=== PATIENT | female | born 1935 | race Caucasian/White ===

== ENCOUNTER 2018-01-17 19:13 | Emergency (ER) | payer OTHER, MEDICARE ==
[~2018-01-17] VITALS: Ht 157.5 cm; Wt 72.1 kg
[~2018-01-17 19:13] MED LIST: AGGRENOX 25 MG1 EACH PO; ARICEPT10 M1 PO; AUGMENTIN 875-1 EACH PO; CELEBREX200 M1 PO; CIPRO500 M1 PO; COLACE100 M1 PO; ELIQUIS2.5 M1 PO; FERROUS SULFAT325 M3 PO; FLAGYL500 MG PO; LANTUS SOL100 UNIT/1 SC; LANTUS100 UNIT/1 SC; LEXAPRO10 M1 PO; MELATONIN3 M4 PO; MELOXICAM7.5 M1 PO; NOVA MAX BLOOD1 EACH SC; PERCOCET 5-3251 EACH PO; POTASSIUM CHLO10 ME4 PO; TOPROL XL25 M1 PO; TYLENOL WITH C1 EACH PO; VITAMIN B-121000 MC3 PO
--- NOTE | 2018-01-17 20:02 | ED MVC/FALL/TRAUMA COMPLAINT ---
History of Present Illness General Chief Complaint: Upper Extremity Problem Stated Complaint: S/P FALL, R ARM INJURY Source: patient Exam Limitations: no limitations Vital Signs & Intake/Output Vital Signs & Intake/Output Vital Signs Date Time Temp Pulse Resp B/P B/P Pulse O2 O2 Flow FiO2 Mean Ox Delivery Rate 01/17 1932 97.4 54 18 149/74 96 Room Air Allergies Coded Allergies: NO KNOWN ALLERGIES (04/30/16) Reconcile Medications Apixaban (Eliquis) 2.5 MG TABLET 1 TAB PO BID ANTICOAGULATION Blood-Glucose Meter (Nova Max Blood Glucose Meter) 1 EACH EACH 2 U SC 1/2H BEFOR/BREAKFAST DM (Reported) Celecoxib (Celebrex) 200 MG CAPSULE 1 CAP PO DAILY INFLAMMATION Cyanocobalamin (Vitamin B-12) 1,000 MCG TABLET 1 TAB PO DAILY SUPPLEMENT ( Reported) Docusate Sodium (Colace) 100 MG CAPSULE 1 CAP PO BID CONSITPATION DISCONTINUE USE IF YOU DEVELOP LOOSE STOOL OR DIARRHEA Donepezil HCl (Aricept) 10 MG TABLET 1 TAB PO QPM DEMENTIA (Reported) Escitalopram Oxalate (Lexapro) 10 MG TABLET 1 TAB PO DAILY ANXIETY (Reported) Ferrous Sulfate 325 MG (65 MG IRON) TABLET 1 TAB PO DAILY SUPPLEMENT ( Reported) Insulin Glargine,Hum.rec.anlog (Lantus Solostar) 100 UNIT/ML (3 ML) INSULN.PEN 6 UNITS SC 1200 DM (Reported) Insulin-Lantus (Lantus) 100 UNIT/ML VIAL 8 UNITS SC 1/2H BEFOR/BREAKFAST DM ( Reported) Melatonin 3 MG TABLET 1 TAB PO QPM SUPPLEMENT (Reported) Metoprolol Succ XL (Toprol XL) 25 MG TAB 1 TAB PO DAILY HTN (Reported) Oxycodone HCl/Acetaminophen (Percocet 5-325 MG Tablet) 5 MG-325 MG TABLET 1-2 TAB PO Q4-6H PRN PAIN Potassium Chloride 10 MEQ TABLET.ER 1 TAB PO QOD SUPPLEMENT (Reported) Triage Note: PT FROM HOME C/O FALL AROUND 1600. PTS SON STATES THAT PT WAS AT HER OTHER SONS HOUSE AND TRIPPED OVER A THRESHOLD AND FELL FACE FLAT FOWARD. PT HAD A WITNESSED FALL, +HEADSTRIKE, -LOC. PT STATES ON 25MG 1X DAY AGGRENOX DUE TO TIA 6 YEARS PRIOR. PT PROVIDED WITH A SLING AND ICE PACK, PT DECLINES MOTRIN OR TYLENOL. PT A&0X3 BESIDES BASELINE DEMENTIA. PT HAS SMALL ABRASION OF BRIDGE OF NOSE, PT ACTING AGE APPROPRIATELY. PT HAS BILATERAL KNEE SWELLING AND BRUISING FROM FALL. PT DENIES N/V, CP, SOB, LETHARGY. VSS. AFEBRILE. Triage Nurses Notes Reviewed? yes Onset: Abrupt Duration: hour(s): ( 4pm), constant, continues in ED Timing: recent history Severity: moderate, severe No Modifying Factors: none HPI: 82-year-old female comes into the emergency room for further evaluation of falling. Patient reports that she tripped over her son's house when she was walking between a doorway on the lip. She fell onto her right side and hit her shoulder. She also hit her head. She has some right shoulder pain and bilateral knee pain. Denies any headache or vomiting. She also complains of this pulsation in the right side of her neck is been there for 2 years. She comes in for further evaluation. She denies any chest pain. She has chronic shortness of breath secondary to lung disease. (Otto Damian) Past History Travel History Traveled to [place] past 21 day No Medical History Any Pertinent Medical History? 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 No (Otto Damian) Review of Systems Review of Systems Constitutional: Reports: no symptoms. Eyes: Reports: no symptoms. Ears, Nose, Throat, Mouth: Reports: no symptoms. Respiratory: Reports: no symptoms. Cardiovascular: Reports: see HPI. Gastrointestinal/Abdominal: Reports: no symptoms. Genitourinary: Reports: no symptoms. Musculoskeletal: Reports: see HPI. Skin: Reports: no symptoms. Neurological/Psychological: Reports: no symptoms. All Other Systems: Reviewed and Negative (Otto Damian) Physical Exam Physical Exam General Appearance: alert, awake, mild distress Head: small scarpe bridge of nose Eyes: Bilateral: normal appearance, EOMI. Ears, Nose, Throat, Mouth: hearing grossly normal, moist mucous membrane Neck: pulsatile mass to right side of neck, Respiratory: normal breath sounds, no respiratory distress Cardiovascular: regular rate/rhythm Gastrointestinal: soft Extremities: full range of motion of hips and knees bilaterally, tenderness soft tissue to knees bilaterally Neurologic/Psych: awake, alert, oriented x 3 Skin: intact, normal color Core Measures ACS in differential dx? No CVA/TIA Diagnosis No Sepsis Present: No Sepsis Focused Exam Completed? No (Lit ANDREWS,Otto) Progress Differential Diagnosis: abd injury, C/T/L spine injury, ext injury, ICH, pelvis injury, pnemothorax, spinal cord injury Plan of Care: Orders Procedure Date/time Status TROPONIN LEVEL 01/17 1959 Complete COMPREHENSIVE METABOLIC PANEL 01/17 1959 Complete CBC WITHOUT DIFFERENTIAL 01/17 1959 Complete EKG 01/17 1936 Active Laboratory Tests 01/17/18 2010: Anion Gap 12, Estimated GFR 33 L, BUN/Creatinine Ratio 26.0 H, Glucose 145 H, Calcium 8.8, Total Bilirubin 0.3, AST 20, ALT 24, Alkaline Phosphatase 84, Troponin I 0.02, Total Protein 6.6, Albumin 3.5, Globulin 3.1, Albumin/Globulin Ratio 1.1, CBC w Diff NO MAN DIFF REQ, RBC 3.70 L, MCV 89.3, MCH 29.0, MCHC 32.4 L, RDW 15.1 H, MPV 7.9, Gran % 81.5 H, Lymphocytes % 10.0 L, Monocytes % 6.2, Eosinophils % 1.8, Basophils % 0.5, Absolute Granulocytes 13.0 H, Absolute Lymphocytes 1.6, Absolute Monocytes 1.0 H, Absolute Eosinophils 0.3, Absolute Basophils 0.1 Diagnostic Imaging: Viewed by Me: Radiology Read, CT Scan. Discussed w/RAD: Radiology Read, CT Scan. Radiology Impression: PATIENT: FEMI AREVALO PRESENT AGE: 82 PATIENT ACCOUNT NO: [id number] : 33 LOCATION: [facility] ORDERING PHYSICIAN: Otto ANDREWS SERVICE DATE: 01/17/18-1958 EXAM TYPE : CAT - CT NECK W IV CONTRAST EXAMINATION: CT NECK WITH CONTRAST CLINICAL INFORMATION: Pulsatile mass of right neck. COMPARISON: None TECHNIQUE: Multidetector CT imaging examination of the neck was performed with intravenous administration of 94 mL of Optiray 320 nonionic contrast material. DLP: Please refer to the separately dictated head CT report FINDINGS: Parotid glands are unremarkable. There is fatty replacement of the left submandibular gland; this could be sequela of remote sialadenitis. The right submandibular gland is unremarkable. Multinodular thyroid gland with scattered noncalcified and calcified nodules of < 1.5 cm size. The nasopharynx, oral cavity, tongue base, and tonsillar pillars are unremarkable. No contour abnormality or pathologic enhancement within the oral cavity or pharyngeal mucosal space. The parapharyngeal fat planes are preserved. The hypopharynx, epiglottis, and preepiglottic space are normal. Laryngeal structures normal. No fluid collections in the deep soft tissues. There are normal sized lymph nodes of the suprahyoid and infrahyoid neck without evidence of lymphadenopathy by size criteria. The visualized carotid and vertebral arteries opacify normally. Atherosclerotic calcification of carotid bulb/bifurcation, bilaterally, without high-grade stenosis. Skull base is intact and the mastoid air cells and middle ear cavities are clear. The visualized paranasal sinuses are well aerated. The orbital santacruz, globes and retrobulbar soft tissues are unremarkable. No acute intracranial findings. No evidence of saccular aneurysm or flow limiting major vessel intracranial stenosis. 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 At C3-C4 and C4-C5, the facet osteoarthritis is associated with mild, approximately 0.2 cm anterior vertebral subluxation at these levels. At C5-C6, there is severe degenerative disc space narrowing with minimal retrolisthesis of C5 on C6. No acute cervical spine fracture or prevertebral soft tissue swelling. No acute osseous injury in the visualized degenerated upper thoracic spine. No acute findings in visualized lung apices. Chronic interstitial fibrotic lung disease. Atherosclerotic calcification of the aortic arch without aneurysm or dissection. There is a normal branch pattern at the top of the aortic arch and the great vessels are widely patent. IMPRESSION: 1. No evidence of soft tissue mass or lymphadenopathy within the right neck. 2. 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 Degenerative disc disease is most advanced at C5-C6. No acute fracture, traumatic subluxation or prevertebral soft tissue swelling. 3. Multinodular thyroid gland. DICTATED BY: Carlos Mckee MD DATE/ TIME DICTATED:01/17/182142 ANCHOR TACKER:CAMILA DATE/TIME TRANSCRIBED: 01/17/182142 CONFIDENTIAL, DO NOT COPY WITHOUT APPROPRIATE AUTHORIZATION. < Electronically signed in Other Vendor System> SIGNED BY: Carlos Mckee MD 01/17/182156, PATIENT: FEMI AREVALO PRESENT AGE: 82 PATIENT ACCOUNT NO: [id number] : 33 LOCATION: [facility] ORDERING PHYSICIAN: Otto ANDREWS SERVICE DATE: 01/17/18 EXAM TYPE: CAT - CT HEAD WO IV CONTRAST EXAMINATION: CT HEAD WITHOUT CONTRAST CLINICAL INFORMATION: History of fall with head pain. COMPARISON: CT images of the head from 09/29/2013 TECHNIQUE: Contiguous axial imaging was performed from the skull base to vertex without intravenous administration of contrast. DLP: 1180 mGy-cm (for CT exams of the head and neck) FINDINGS: Chronic, patchy hypoattenuation of supratentorial white matter is consistent with moderate microangiopathy. Byrd- white matter differentiation is maintained. No evidence of an acute major vascular territory infarction, hemorrhage, extra-axial fluid collection, mass or midline shift. Mild atrophy of cerebral hemispheres with commensurate prominence of ventricles and sulci. Atherosclerotic calcification of vertebral and cavernous carotid arteries. There is hyperostosis frontalis interna. The calvarium is intact and the visualized paranasal sinuses, mastoid air cells and middle ear cavities are well aerated. Temporomandibular joints are unremarkable. The lenses have been extracted from each globe. IMPRESSION: No acute intracranial pathology compared to 09/29/2013. Chronic small vessel ischemic changes of the supratentorial white matter and mild cerebral atrophy. DICTATED BY: Carlos Mckee MD DATE/TIME DICTATED:01/17/182138 ANCHOR TACKER: CAMILA DATE/TIME TRANSCRIBED:01/17/182138 CONFIDENTIAL, DO NOT COPY WITHOUT APPROPRIATE AUTHORIZATION. <Electronically signed in Other Vendor System> SIGNED BY: Carlos Mckee MD 01/17/182146, PATIENT: FEMI AREVALO PRESENT AGE: 82 PATIENT ACCOUNT NO: [id number] : 33 LOCATION: [facility] ORDERING PHYSICIAN: Otto ANDREWS SERVICE DATE: 01/17/18 EXAM TYPE: RAD - XRY-KNEE COMPLETE LEFT; XRY-KNEE COMPLETE RIGHT EXAMINATION: XR KNEE, RIGHT XR KNEE, LEFT CLINICAL INFORMATION: Pain after fall COMPARISON: 09/12/2017 TECHNIQUE: Right knee, 4 views Left knee, 4 views FINDINGS: Right knee: Alignment is normal. The components of the total knee arthroplasty are intact. No acute periprosthetic fracture or joint effusion. Atherosclerotic calcification of femoral, popliteal and leg vessels. Left knee: Alignment is normal. The components of the total knee arthroplasty are intact. No acute periprosthetic fracture, subluxation or joint effusion. There is heterotopic ossification along the distal quadriceps, along the medial collateral ligament and projecting over the region of Hoffa's fat pad. Atherosclerotic calcification and of the visualized femoral, popliteal and leg vessels. Soft tissues appear mildly swollen in the infrapatellar region. IMPRESSION: No acute osseous injury in either knee. Alignment is normal in both knees. Total knee arthroplasties are intact. DICTATED BY: Carlos Mckee MD DATE/TIME DICTATED:01/17/182043 ANCHOR TACKER:CAMILA DATE/TIME TRANSCRIBED:01/17/182043 CONFIDENTIAL, DO NOT COPY WITHOUT APPROPRIATE AUTHORIZATION. <Electronically signed in Other Vendor System> SIGNED BY: Carlos Mckee MD 01/17/182050, PATIENT: FEMI AREVALO PRESENT AGE: 82 PATIENT ACCOUNT NO: [id number] : 33 LOCATION: [facility] ORDERING PHYSICIAN: Otto ANDREWS SERVICE DATE: 01/17/18 EXAM TYPE: RAD - XRY-SHOULDER COMPLETE-RIGHT EXAMINATION: XR SHOULDER, RIGHT CLINICAL INFORMATION: Pain after fall. COMPARISON: None TECHNIQUE: AP external rotation, Grashey, scapular Y, and axillary views of the right shoulder. FINDINGS: Alignment is normal at the acromioclavicular and glenohumeral joints. At the acromioclavicular joint, there is subchondral sclerosis, subchondral cystic change and osteophytosis. Small osteophytes are present at the inferior aspect of the degenerated glenohumeral joint. Humeral head is well-positioned over the intact glenoid. No acute fracture, subluxation or focal soft tissue swelling. Multilevel facet osteoarthritis of the partially visualized cervical spine. IMPRESSION: 1. No acute fracture or malalignment at the right shoulder. 2. Gxigpsrl-bc-[id number] osteoarthritis of the acromioclavicular joint and mild osteoarthritis of the glenohumeral joint. DICTATED BY: Carlos Mckee MD DATE/ TIME DICTATED:01/17/182041 ANCHOR TACKER:CAMILA DATE/TIME TRANSCRIBED: 01/17/182041 CONFIDENTIAL, DO NOT COPY WITHOUT APPROPRIATE AUTHORIZATION. < Electronically signed in Other Vendor System> SIGNED BY: Carlos Mckee MD 01/17/182047 Initial ED EKG: normal sinus rhythm, rate (55) Comments: 01/17/18 Overall workup was negative. Despite the more pronounced carotid artery there was no evidence of any aneurysm. Patient was seen by Dr. Jacobs and the case was discussed with Dr. Jacobs and he agreed with the plan of care as well. Patient met the cutoff for IV contrast and due to the concern for possible aneurysm we felt that the CT scan was necessary at the time. Patient was told to increase water intake to hydrate and flush out her kidneys. Take Tylenol as needed for pain. Follow-up with PCP. Safe for discharge. Patient has support systems at home. (Otto Damian) Comments: 01/17/2018 10:19:30 PM patient is without specific complaint. Additional physical examination of the right side of the neck reveals no obvious soft tissue mass or swelling but the patient's right carotid artery pulse is more prominent than the left. CAT scan of the head and neck was unremarkable. (Arlene SU,Nabil Tijerina) Departure Departure Disposition: HOME OR SELF CARE Condition: Stable Clinical Impression Primary Impression: Right shoulder strain Secondary Impressions: Knee contusion Referrals: Mamadou Villagran MD (PCP/Family) Additional Instructions: Take Tylenol for pain. Follow up with PCP as needed. Return if any concerns. Please go over all results of today's visit with your primary care doctor. Contact your primary care doctor to let them know you were here in the emergency room. There may be nonspecific findings which may not be related to your visit today here in the emergency room but may require further evaluation and chronic monitoring by your primary care doctor. If you had a laceration today the chance of foreign body always remains. You should follow-up with your primary care doctor for recheck in 3-5 days for a wound check. If you had an x-ray done there is a chance that a fracture could have been missed on initial read and you should follow-up with your primary care doctor for repeat x-rays if symptoms persist. If your blood pressure was elevated here in the emergency room please have rechecked by hyour primary care doctor within the next 48. If you were prescribed a narcotic here in the emergency room or any type of controlled substances you're not allowed to drive while taking this medication or operate any type of heavy machinery. Narcotics can make you feel lightheaded dizziness nausea and can cause constipation. You may need to curing pickling packer a stool softener. Thank you for choosing [facility] emergency room. Please return to the emergency room immediately if you have any other concerns worsening of symptoms. Departure Forms: Customer Survey General Discharge Information (Otto Damian) PA/SECOND CUTTER Co-Sign Statement Statement: ED Attending supervision documentation- [x] I saw and evaluated the patient. I have also reviewed all the pertinent lab results and diagnostic results. I agree with the findings and the plan of care as documented in the PA's/SECOND CUTTER's documentation. Patient presents for evaluation of injury sustained status post fall. Physical examination reveals a small abrasion to the nasal bridge and tenderness of the right upper extremity proximally. [] I have reviewed the ED Record and agree with the PA's/SECOND CUTTER's documentation. [] Additions or exceptions (if any) to the PAs/SECOND CUTTER's note and plan are summarized below: [] (Arlene SU,Nabil Tijerina)
[2018-01-17 20:18] LABS: ABSOLUTE BASOPHIL COUNT 0.1 /CUMM (0.0-0.2); ABSOLUTE EOSINOPHIL COUNT 0.3 /CUMM (0.0-0.7); ABSOLUTE LYMPH COUNT 1.6 /CUMM (1.2-3.4); BASOPHIL % 0.5 % (0.0-2.0); EOSINOPHIL % 1.8 % (0-5); GRANULOCYTE % 81.5 % (42.2-75.2); MEAN CORPUSCULAR HGB CONC 32.4 G/DL (33.0-37.0); MEAN CORPUSCULAR VOLUME 89.3 FL (81.0-99.0); MEAN PLATELET VOLUME 7.9 FL (7.4-10.4); PLATELET COUNT 298 /CUMM (130-400); RBC DISTRIBUTION WIDTH 15.1 % (11.5-14.5); WHITE BLOOD CELL COUNT 15.9 /CUMM (4.8-10.8)
--- NOTE | 2018-01-17 20:48 | RADIOLOGY REPORT ---
EXAMINATION: XR SHOULDER, RIGHT CLINICAL INFORMATION: Pain after fall. COMPARISON: None TECHNIQUE: AP external rotation, Grashey, scapular Y, and axillary views of the right shoulder. FINDINGS: Alignment is normal at the acromioclavicular and glenohumeral joints. At the acromioclavicular joint, there is subchondral sclerosis, subchondral cystic change and osteophytosis. Small osteophytes are present at the inferior aspect of the degenerated glenohumeral joint. Humeral head is well-positioned over the intact glenoid. No acute fracture, subluxation or focal soft tissue swelling. Multilevel facet osteoarthritis of the partially visualized cervical spine. IMPRESSION: 1. No acute fracture or malalignment at the right shoulder. 2. Kvggylas-vh-ryqklz osteoarthritis of the acromioclavicular joint and mild osteoarthritis of the glenohumeral joint.
--- NOTE | 2018-01-17 20:51 | RADIOLOGY REPORT ---
EXAMINATION: XR KNEE, RIGHT XR KNEE, LEFT CLINICAL INFORMATION: Pain after fall COMPARISON: 09/12/2017 TECHNIQUE: Right knee, 4 views Left knee, 4 views FINDINGS: Right knee: Alignment is normal. The components of the total knee arthroplasty are intact. No acute periprosthetic fracture or joint effusion. Atherosclerotic calcification of femoral, popliteal and leg vessels. Left knee: Alignment is normal. The components of the total knee arthroplasty are intact. No acute periprosthetic fracture, subluxation or joint effusion. There is heterotopic ossification along the distal quadriceps, along the medial collateral ligament and projecting over the region of Hoffa's fat pad. Atherosclerotic calcification and of the visualized femoral, popliteal and leg vessels. Soft tissues appear mildly swollen in the infrapatellar region. IMPRESSION: No acute osseous injury in either knee. Alignment is normal in both knees. Total knee arthroplasties are intact.
--- NOTE | 2018-01-17 21:47 | CT SCAN REPORT ---
EXAMINATION: CT HEAD WITHOUT CONTRAST CLINICAL INFORMATION: History of fall with head pain. COMPARISON: CT images of the head from 09/29/2013 TECHNIQUE: Contiguous axial imaging was performed from the skull base to vertex without intravenous administration of contrast. DLP: 1180 mGy-cm (for CT exams of the head and neck) FINDINGS: Chronic, patchy hypoattenuation of supratentorial white matter is consistent with moderate microangiopathy. Byrd-white matter differentiation is maintained. No evidence of an acute major vascular territory infarction, hemorrhage, extra-axial fluid collection, mass or midline shift. Mild atrophy of cerebral hemispheres with commensurate prominence of ventricles and sulci. Atherosclerotic calcification of vertebral and cavernous carotid arteries. There is hyperostosis frontalis interna. The calvarium is intact and the visualized paranasal sinuses, mastoid air cells and middle ear cavities are well aerated. Temporomandibular joints are unremarkable. The lenses have been extracted from each globe. IMPRESSION: No acute intracranial pathology compared to 09/29/2013. Chronic small vessel ischemic changes of the supratentorial white matter and mild cerebral atrophy.
--- NOTE | 2018-01-17 21:57 | CT SCAN REPORT ---
EXAMINATION: CT NECK WITH CONTRAST CLINICAL INFORMATION: Pulsatile mass of right neck. COMPARISON: None TECHNIQUE: Multidetector CT imaging examination of the neck was performed with intravenous administration of 94 mL of Optiray 320 nonionic contrast material. DLP: Please refer to the separately dictated head CT report FINDINGS: Parotid glands are unremarkable. There is fatty replacement of the left submandibular gland; this could be sequela of remote sialadenitis. The right submandibular gland is unremarkable. Multinodular thyroid gland with scattered noncalcified and calcified nodules of < 1.5 cm size. The nasopharynx, oral cavity, tongue base, and tonsillar pillars are unremarkable. No contour abnormality or pathologic enhancement within the oral cavity or pharyngeal mucosal space. The parapharyngeal fat planes are preserved. The hypopharynx, epiglottis, and preepiglottic space are normal. Laryngeal structures normal. No fluid collections in the deep soft tissues. There are normal sized lymph nodes of the suprahyoid and infrahyoid neck without evidence of lymphadenopathy by size criteria. The visualized carotid and vertebral arteries opacify normally. Atherosclerotic calcification of carotid bulb/bifurcation, bilaterally, without high-grade stenosis. Skull base is intact and the mastoid air cells and middle ear cavities are clear. The visualized paranasal sinuses are well aerated. The orbital santacruz, globes and retrobulbar soft tissues are unremarkable. No acute intracranial findings. No evidence of saccular aneurysm or flow limiting major vessel intracranial stenosis. 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 At C3-C4 and C4-C5, the facet osteoarthritis is associated with mild, approximately 0.2 cm anterior vertebral subluxation at these levels. At C5-C6, there is severe degenerative disc space narrowing with minimal retrolisthesis of C5 on C6. No acute cervical spine fracture or prevertebral soft tissue swelling. No acute osseous injury in the visualized degenerated upper thoracic spine. No acute findings in visualized lung apices. Chronic interstitial fibrotic lung disease. Atherosclerotic calcification of the aortic arch without aneurysm or dissection. There is a normal branch pattern at the top of the aortic arch and the great vessels are widely patent. IMPRESSION: 1. No evidence of soft tissue mass or lymphadenopathy within the right neck. 2. 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 Degenerative disc disease is most advanced at C5-C6. No acute fracture, traumatic subluxation or prevertebral soft tissue swelling. 3. Multinodular thyroid gland.
[2018-01-17 22:27] VITALS: BP 144/76
== END 2018-01-17 22:40 ==
LOC: ERH 19:13
PROVIDERS: Physician Assistant Medical
DX: S46.911A Strain of unspecified muscle, fascia and tendon at shoulder and upper arm level, right arm, initial encounter (principal); S80.01XA Contusion of right knee, initial encounter; S80.02XA Contusion of left knee, initial encounter; S09.90XA Unspecified injury of head, initial encounter; R22.1 Localized swelling, mass and lump, neck; W18.09XA Striking against other object with subsequent fall, initial encounter; Y93.01 Activity, walking, marching and hiking
CPT/HCPCS: 73030-RT; 73562-LT; 73562-RT; 93005; 93010

== ENCOUNTER 2018-03-01 18:52 | Inpatient (IN) | payer OTHER, MEDICARE ==
[~2018-03-01] VITALS: Ht 157.5 cm; Wt 78.0 kg
--- NOTE | 2018-03-01 19:04 | ED MVC/FALL/TRAUMA COMPLAINT ---
History of Present Illness General Chief Complaint: Fall Stated Complaint: BIBA FOR FALL IN KITCHEN Source: patient, family, EMS Exam Limitations: no limitations Vital Signs & Intake/Output Vital Signs & Intake/Output Vital Signs Date Time Temp Pulse Resp B/P B/P Pulse O2 O2 Flow FiO2 Mean Ox Delivery Rate 03/01 2305 43 14 178/76 10 Ventilator 28% 03/01 2235 42 14 168/73 99 Ventilator 28% 03/011 28 03/015 44 16 135/61 99 Ventilator 30% 03/01 2135 42 16 124/62 100 Ventilator 30% 03/01 2105 48 16 145/63 99 Ventilator 30% 03/01 2052 98.1 50 16 171/73 100 Ventilator 30% 03/01 2015 30 03/01 2008 64 16 198/82 100 Ventilator 30% 03/01 2001 64 18 188/77 100 10L 03/01 1955 66 8 207/87 100 10L 03/01 1857 96.9 47 17 165/73 98 Room Air Allergies Coded Allergies: NO KNOWN ALLERGIES (04/30/16) Reconcile Medications Cholecalciferol (Vitamin D3) (Vitamin D) 5,000 UNIT TABLET 1 TAB PO DAILY SUPPLEMENT (Reported) Cyanocobalamin (Vitamin B-12) 1,000 MCG TABLET 1 TAB PO DAILY SUPPLEMENT ( Reported) Dipyridamole W/ Aspirin (Aggrenox 25 MG-200 MG Capsule) 25 MG-200 MG CPMP.12HR 1 CAP PO BID BLOOD THINNER (Reported) Docusate Sodium (Colace) 100 MG CAPSULE 1 CAP PO DAILY STOOL SOFTENER ( Reported) Donepezil HCl (Aricept) 10 MG TABLET 1 TAB PO QPM DEMENTIA (Reported) Doxycycline Hyclate 50 MG CAPSULE 1 CAP PO DAILY ABX (Reported) Escitalopram Oxalate (Lexapro) 10 MG TABLET 1 TAB PO DAILY ANXIETY (Reported) Ferrous Sulfate 325 MG (65 MG IRON) TABLET 1 TAB PO DAILY SUPPLEMENT ( Reported) Insulin Aspart (Novolog) 100 UNIT/ML VIAL 4 UNITS SC QAM DM (Reported) Insulin Aspart (Novolog) 100 UNIT/ML VIAL 8 UNITS SC DAILY DM (Reported) Insulin Detemir (Levemir) 100 UNIT/ML VIAL 6 UNITS SC QAM DM (Reported) Insulin Detemir (Levemir) 100 UNIT/ML VIAL 4 UNITS SC QPM DM (Reported) Losartan Potassium 50 MG TABLET 1 TAB PO DAILY BP (Reported) Meloxicam 7.5 MG TABLET 1 TAB PO DAILY PAIN/INFLAMMATION (Reported) Metoprolol Succ XL (Toprol XL) 25 MG TAB 1 TAB PO DAILY HTN (Reported) Rosuvastatin Calcium (Crestor) 20 MG TABLET 1 TAB PO DAILY CHOLESTEROL ( Reported) Triage Note: PT TO ED BY AMBULANCE S/P UNWITNESSED FALL AT HOME. PT HAS [employer]AL[employer] BUTTON. DENIES HITTING HEAD. C/O BILAT HIP PAIN. LEFT LEG SHORTENING NOTED. Triage Nurses Notes Reviewed? yes Onset: Abrupt Duration: hour(s): (1), constant, continues in ED, getting worse Timing: single episode today Severity: moderate, severe Severity Numbers: 10 Injuries/Fall Location: lower extremity (LEFT HIP ) Method of Injury: fall Loss of Consciousness: unsure No Modifying Factors: none LMP (ages 10-50): post menopausal, unknown : No Patient currently breastfeeds: No HPI: 83-year-old female past medical history of coronary artery disease, non-insulin- dependent diabetes, hypertension, bradycardia presents for evaluation after a fall. Patient reports that she slipped in the kitchen and fell landing on her left hip. She denies a head strike. She reports severe pain in her left hip and lower extremity as well as her lower back. No chest pain shortness breath or dizziness or lightheadedness before the fall. She denies loss of consciousness. No neck pain back pain and knee pain and ankle pain and right hip pain no arm pain. Patient is taking AGGRENOX. No nausea or vomiting no changes in vision. (Boston Jacobsen) Past History Travel History Traveled to [place] past 21 day No Medical History Any Pertinent Medical History? 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 No (Boston Jacobsen) Review of Systems Review of Systems Constitutional: Reports: no symptoms. Eyes: Reports: no symptoms. Ears, Nose, Throat, Mouth: Reports: no symptoms. Respiratory: Reports: no symptoms. Cardiovascular: Reports: no symptoms. Gastrointestinal/Abdominal: Reports: no symptoms. Genitourinary: Reports: no symptoms. Musculoskeletal: Reports: see HPI, back pain, joint pain, joint swelling, muscle pain, muscle stiffness. Skin: Reports: no symptoms. Neurological/Psychological: Reports: no symptoms. All Other Systems: Reviewed and Negative (Boston Jacobsen) Physical Exam Physical Exam General Appearance: well developed/nourished, alert, awake, anxious, mild distress Head: atraumatic, normal appearance, NO SCALP HEMATOMAS LACERATIONS OR ABRASIONS Eyes: Bilateral: normal appearance, PERRL, EOMI, normal inspection. Ears, Nose, Throat, Mouth: hearing grossly normal, moist mucous membrane, Tympanic normal Neck: normal inspection, supple, full range of motion, no midline tenderness Respiratory: normal breath sounds, chest non-tender, no respiratory distress, lungs clear Cardiovascular: regular rate/rhythm, normal peripheral pulses Peripheral Pulses: 2+ radial (R), 2+ radial (L) Gastrointestinal: soft, non-tender Back: normal inspection, normal range of motion, no vertebral tenderness Extremities: THE LEFT LOWER EXTREMITY IS INTERNALLY ROTATED AND SHORTENED. pATIENT HAS SEVERE PAIN TO PALPATION OF THE LEFT HIP. rANGE OF MOTION OF LEFT HIP IS REDUCED DUE TO PAIN. nO TENDERNESS OF THE BILATERAL ANKLES OR KNEES. nO TENDERNESS IN THE RIGHT HIP. fULL RANGE OF MOTION OF BILATERAL UPPER EXTREMITIES IS INTACT WITHOUT PAIN Neurologic/Psych: no motor/sensory deficits, awake, alert, oriented x 3 Skin: intact, normal color, warm/dry Core Measures ACS in differential dx? No CVA/TIA Diagnosis No Date Last Known Well: 03/01/18 Time Last Known Well: 1914 Symptom Start Date: 03/01/18 Symptom Start Time: 193 Reason tPA not ordered Medical Contraindication (HIP FRACTURE, GCS 3) Sepsis Present: No Sepsis Focused Exam Completed? No (Boston Jacobsen) Progress Differential Diagnosis: aoritic dissection, abd injury, C/T/L spine injury, ext injury, ICH, pelvis injury, spinal cord injury, SEIZURE, STROKE, PE, ACS Plan of Care: Orders Procedure Date/time Status Wound Care/Dressing 03/01 2343 Complete Weight 03/01 2343 Active VTE Mechanical Prophylaxis 04/01 2343 Active Vital Signs 03/01 2343 Active Turn and Reposition 03/01 234 Active Drains/Tubes 03/01 234 Complete Teach/Educate 03/01 2343 Active Skin Integrity Protocol 03/01 234 Active Skin/Pressure Ulcer Assess (Sk 03/01 2343 Active Precautions 03/01 2343 Active Pain Treatment and Response 03/01 2343 Active Nutritional Intake, Monitor 03/01 2343 Active Isolation 03/01 234 Active CIWA 03/01 2343 Complete Patient Care Conference 03/01 234 Active Activity/Ambulation 03/01 234 Active Pathway - chart 03/01 232 Active House Staff 03/01 232 Active Code Status 03/01 232 Active XRY-PORTABLE CHEST XRAY 03/01 2311 Active VENTILATOR PARAMETERS 03/01 2217 Complete Admit to inpatient 03/01 2206 Active Patient Data 03/01 2155 Active NGT 03/01 2143 Active ARTERIAL BLOOD GAS (GEN) 03/01 2135 Complete Add-on Test (ER Only) 03/01 2125 Active EKG 03/01 1951 Active Intake & Output 03/01 193 Active TSH REFLEX 03/01 191 Active PROLACTIN 03/01 1917 Active URINALYSIS 03/01 1900 Complete TROPONIN LEVEL 03/01 1900 Active PARTIAL THROMBOPLASTIN TIME 03/01 190 Complete PROTHROMBIN TIME 03/01 1900 Complete COMPREHENSIVE METABOLIC PANEL 03/01 1900 Active CBC WITHOUT DIFFERENTIAL 03/01 1900 Complete EKG 03/01 1900 Active TYPE & SCREEN (NOT X-MATCH) 03/01 1900 Complete VENTILATOR PARAMETERS 03/01 UNK Complete Lab Add-on Test 03/01 UNK Active VTE Mechanical Prophylaxis 03/01 UNK Active Current Medications Sig/Faraz Start time Last Medication Dose Stop Time Status Admin Lorazepam 2 MG ONE ONE 03/01 2230 UNVr (Ativan) 03/01 2231 Laboratory Tests 03/01/182199: pH 7.40, pCO2 29 L, pO2 121 H, HCO3 17.2 L, ABG O2 Sat (Measured) 98.0, Carboxyhemoglobin 0.2 L, O2 Concentration % 30, Respiration Rate 16, O2 Delivery Method VENT, Vent Mode AC, Expiratory Pressure 5, Tidal Volume 500, Pressure Support 0, Phlebotomy Draw Site RIGHT RADIAL 03/01/182138: Urinalysis MOD H, Urine Color YEL, Urine Clarity CLEAR, Urine pH 6.0, Ur Specific [place] 1.025, Urine Protein >=300 H, Urine Ketones NEG, Urine Nitrite NEG, Urine Bilirubin NEG, Urine Urobilinogen 0.2, Ur Leukocyte Esterase NEG, Ur Microscopic SEDIMENT EXAMINED, Urine RBC 1-3, Urine WBC 1-3 H, Ur Epithelial Cells FEW, Urine Bacteria FEW H, Hyaline Casts 1-3 H, Granular Casts RARE H, Urine Mucus FEW, Urine Hemoglobin SMALL H, Urine Glucose 100 H 03/01/181916: Anion Gap 12, Estimated GFR 33 L, BUN/Creatinine Ratio 22.7, Glucose 165 H, Calcium 9.0, Total Bilirubin 0.4, AST 22, ALT 19, Alkaline Phosphatase 92, Troponin I 0.10, Total Protein 6.6, Albumin 3.4 L, Globulin 3.2, Albumin/ Globulin Ratio 1.1, TSH &T3 &Free T4 Intrp Pending, Prolactin 51.9 H, PT 11.2, INR 1.03, APTT 28, CBC w Diff NO MAN DIFF REQ, RBC 3.55 L, MCV 90.3, MCH 29.0, MCHC 32.1 L, RDW 15.6 H, MPV 7.9, Gran % 86.9 H, Lymphocytes % 6.7 L, Monocytes % 4.8, Eosinophils % 1.3, Basophils % 0.3, Absolute Granulocytes 11.2 H, Absolute Lymphocytes 0.9 L, Absolute Monocytes 0.6, Absolute Eosinophils 0.2 , Absolute Basophils 0 Patient seen and evaluated. She is here after mechanical fall. Suspect a left hip fracture. Patient is taking AGGRENOX. We'll check a CT scan of the head neck chest x-ray and hip x-rays. Patient medicated with IV Tylenol and IV morphine. 745PM While patient was getting her head CT she suddenly became unresponsive. technical specialist reported she did have some seizure-like activity. On reexam after this episode patient is unresponsive with snoring respirations. She does not appear to have a gag reflex to protect her airway. She has a left-sided facial droop and gaze looking to the left. GCS IS 3. Attempted Narcan without any improvement. Patient was intubated by Dr. Nichole placed on a ventilator. Patient was taken back to CT scan for a CT of the head neck chest abdomen and pelvis. No traumatic injuries were seen of the head no hematomas. A CTA of the head and neck was obtained to evaluate for stroke. Neurology was called. Waiting further recommendations. 927: Patient remains intubated on ventilator. She was responding to some commands squeezing the right hand and making eye contact. She'll be given 2 mg of IV Ativan for sedation. Spoke with Dr. Ann from neurology. He recommends covering the patient with Keppra permissive hypertension 210/110, supportive care, MRI of the brain tomorrow. No TPA due to large hip fracture, GCS OF 3, and unclear etiology. Remaining CT scans are back and show a left hip fracture. No other acute trauma. Ortho was paged. PT ADMITTED TO THE ICU BY DR OTT. Diagnostic Imaging: Viewed by Me: CT Scan. Discussed w/RAD: CT Scan. Radiology Impression: PATIENT: FEMI AREVALO PRESENT AGE: 83 PATIENT ACCOUNT NO: [id number] : 33 LOCATION: [facility] ORDERING PHYSICIAN: Papo Nichole MD SERVICE DATE: 03/01/18 EXAM TYPE: CAT - CT HEAD ANGIOGRAM; CT NECK ANGIOGRAM EXAMINATION: CT ANGIOGRAM NECK AND BRAIN CLINICAL INFORMATION: 83-year-old woman who is unresponsive. COMPARISON: 03/01/[address] TECHNIQUE: Test bolus sequences followed by intravenous administration 94 mL of Optiray 320. Helical imaging was performed in the axial plane from the thoracic inlet to the skull vertex. Delayed postcontrast imaging of the head was also performed. The data was processed at the certified surgical technologist's workstation for generation of MIP sequences. Angled MIPs and volume rendered reformatted images were also generated at an offline 3D workstation. Stenoses are assessed in accordance with NASCET criteria unless otherwise indicated. DLP: 1116 mGy-cm FINDINGS: Brain: No intracranial mass, hemorrhage, extra-axial collection, or midline shift is apparent. Chronic ischemic changes and volume loss are again noted. No pathologic intra-axial enhancement or regional oligemia is visualized. The paranasal sinuses remain well aerated. Cervical soft tissues and lung apices: The lung apices are better assessed on the patient's dedicated chest CT. An endotracheal tube is visible. Chest CTA: There is a classic 3 vessel configuration of the aortic arch. Proximal arch vessels are non-stenotic. The left vertebral artery is dominant. No significant ostial stenosis is visualized on either side. Neck CTA: Both vertebral arteries are widely patent throughout their extracranial cervical course. Both common and internal carotid arteries are normal in course and caliber. There is mild calcified atherosclerotic plaquing seen at both carotid bifurcations. Brain CTA: There is normal opacification of major intracranial arteries. No focal flow-limiting stenosis, discrete proximal large artery occlusion, or saccular intradural aneurysm is identified. Timing of the contrast allows assessment of the major dural venous sinuses, which all opacify normally. IMPRESSION: No significant cervicocerebral vascular stenosis or acute intracranial large artery occlusion. DICTATED BY: Robyn Ovalles MD DATE/TIME DICTATED:03/01/182103 MEDICAL CARE ADMINISTRATOR:CAMLIA DATE/TIME TRANSCRIBED:2103 CONFIDENTIAL, DO NOT COPY WITHOUT APPROPRIATE AUTHORIZATION. < Electronically signed in Other Vendor System> SIGNED BY: Robyn Ovalles MD 12/18, PATIENT: FEMI AREVALO PRESENT AGE: 83 PATIENT ACCOUNT NO: [id number] : 33 LOCATION: [facility] ORDERING PHYSICIAN: [place] ANDREWS SERVICE DATE: 03/01/18 EXAM TYPE: CAT - CT CERV SPINE WO IV CONTRAST; CT HEAD WO IV CONTRAST EXAMINATION: CT HEAD WITHOUT CONTRAST CT CERVICAL SPINE WITHOUT CONTRAST CLINICAL INFORMATION: 83-year-old woman with fall on oral anticoagulation. COMPARISON: 01/17/[address] TECHNIQUE: Imaging was performed from the skull base to vertex without intravenous administration of contrast. In addition, helical noncontrast CT imaging was acquired through the cervical spine and source images were reviewed along with axial reconstructions and sagittal and coronal MPRs. DLP: 1985 mGy-cm FINDINGS: HEAD: No intracranial mass, hemorrhage, or midline shift is visualized. The ventricles and sulci are diffusely prominent due to chronic volume loss. Fairly extensive chronic microvascular ischemic changes are seen throughout the supratentorial white matter. Chronic lacunar infarcts are seen in both basal ganglia. No extra- axial collections are identified. The paranasal sinuses and mastoid air cells are well aerated. CERVICAL SPINE: There is no evidence of acute cervical spine fracture. Vertebral bodies remain normal in height. There is slight degenerative anterolisthesis of C3 on C4 and of C4 on C5, as well as slight retrolisthesis of C5 on C6. Degenerative endplate remodeling with loss of normal disc space is most conspicuous at C5-C6. There is bulky multilevel facet arthrosis. No pre- or paravertebral soft tissue abnormality is identified. The lung apices are better assessed on the patient's dedicated chest CT. IMPRESSION: 1. No acute intracranial pathology. 2. No CT evidence of acute cervical spine fracture or traumatic subluxation. Findings were discussed with DARRYL Zelaya, at 9:00 pm. DICTATED BY: Robyn Ovalles MD DATE/TIME DICTATED:03/01/182055 MEDICAL CARE ADMINISTRATOR: CAMILA DATE/TIME TRANSCRIBED:03/01/182055 CONFIDENTIAL, DO NOT COPY WITHOUT APPROPRIATE AUTHORIZATION. <Electronically signed in Other Vendor System> SIGNED BY: Robyn Ovalles MD 03/01/182105 Initial ED EKG: sinus felisha rate 49, lvh (Boston Jacobsen) Departure Departure Disposition: STILL A PATIENT Condition: Stable Referrals: Mamadou Villagran MD (PCP/Family) Departure Forms: Customer Survey General Discharge Information Admission Note Spoke With: Santiago Telles MD Documentation of Exam: Documentation of any treatments & extenuating circumstances including Concerns Regarding Discharge (functional status, medication knowledge or non-compliance, living conditions, etc.) that warrant an admission rather than observation: [ Critical care, serial labs, orthopedics, neurology, MRI, IV Keppra, intubation, respiratory therapy] (Boston Jacobsen) Departure Clinical Impression Primary Impression: Unresponsive Secondary Impressions: Fracture of left hip Qualifiers: Encounter type: initial encounter Fracture type: closed Qualified Code: S72.002A - Fracture of unspecified part of neck of left femur, initial encounter for closed fracture Respiratory failure Admission Note Documentation of Exam: Documentation of any treatments & extenuating circumstances including Concerns Regarding Discharge (functional status, medication knowledge or non-compliance, living conditions, etc.) that warrant an admission rather than observation: PA/BRANCH LENDING OFFICER Co-Sign Statement Statement: ED Attending supervision documentation- [x] I saw and evaluated the patient. I have also reviewed all the pertinent lab results and diagnostic results. I agree with the findings and the plan of care as documented in the PA's/BRANCH LENDING OFFICER's documentation. 03/01/18, 20:13... pt became unresponsive in the CT scanner.... gcs 3 without gag reflex.... discussed with son who is POA... pt is full code... pt intubated successfully via glidescope without complication. ET tube confirmed with capnography and auscultation. pt signed out to me.... I discussed with hospitalist. [] I have reviewed the ED Record and agree with the PA's/BRANCH LENDING OFFICER's documentation. [] Additions or exceptions (if any) to the PAs/BRANCH LENDING OFFICER's note and plan are summarized below: [] (Dionisio SU,Papo Murdock) Procedures Intubation Time of Intubation: 2003 Intubation Method: orotracheal Tube Size (cm): 7.5 Medications: etomidate 20mg iv Breath Sounds After Intubation: equal Intubation Complications: no complications (Dionisio SU,Papo Murdock) Critical Care Note Critical Care Note Critical Care Time: 75-104 min (Papo Nichole MD)
[2018-03-01] MEDS ORDERED: LOSARTAN POTASS50 M1 PO (19:10)
[2018-03-01] MEDS ORDERED: MELOXICAM7.5 M1 PO (19:10)
[2018-03-01] MEDS ORDERED: DOXYCYCLINE HYC50 M1 PO (19:10)
[2018-03-01] MEDS ORDERED: AGGRENOX 25 MG1 EACH PO (19:11)
[2018-03-01] MEDS ORDERED: CRESTOR20 M2 PO (19:11)
[2018-03-01] MEDS ORDERED: COLACE100 M1 PO (19:11)
[2018-03-01] MEDS ORDERED: VITAMIN D5000 UNIT PO (19:12)
[2018-03-01] MEDS ORDERED: NOVOLOG100 UNIT/2 SC ×2 (19:13)
[2018-03-01] MEDS ORDERED: LEVEMIR100 UNIT/1 SC ×2 (19:17)
[2018-03-01 19:23] LABS: ABSOLUTE BASOPHIL COUNT 0 /CUMM (0.0-0.2); ABSOLUTE EOSINOPHIL COUNT 0.2 /CUMM (0.0-0.7); ABSOLUTE GRANULOCYTE CT 11.2 /CUMM (1.4-6.5); ABSOLUTE LYMPH COUNT 0.9 /CUMM (1.2-3.4); ABSOLUTE MONOCYTE COUNT 0.6 /CUMM (0.10-0.60); BASOPHIL % 0.3 % (0.0-2.0); EOSINOPHIL % 1.3 % (0-5); GRANULOCYTE % 86.9 % (42.2-75.2); HEMATOCRIT 32.1 % (37-47); MEAN CORPUSCULAR HGB CONC 32.1 G/DL (33.0-37.0); MEAN CORPUSCULAR VOLUME 90.3 FL (81.0-99.0); MEAN PLATELET VOLUME 7.9 FL (7.4-10.4); PLATELET COUNT 336 /CUMM (130-400); RBC DISTRIBUTION WIDTH 15.6 % (11.5-14.5); RED BLOOD CELL CT 3.55 /CUMM (4.20-5.40); WHITE BLOOD CELL COUNT 12.9 /CUMM (4.8-10.8)
[2018-03-01 19:36] LABS: PT 11.2 SEC (9.4-12.5); PTT 28 SEC (25-37)
--- NOTE | 2018-03-01 21:06 | CT SCAN REPORT ---
EXAMINATION: CT HEAD WITHOUT CONTRAST CT CERVICAL SPINE WITHOUT CONTRAST CLINICAL INFORMATION: 83-year-old woman with fall on oral anticoagulation. COMPARISON: 01/17/[address] TECHNIQUE: Imaging was performed from the skull base to vertex without intravenous administration of contrast. In addition, helical noncontrast CT imaging was acquired through the cervical spine and source images were reviewed along with axial reconstructions and sagittal and coronal MPRs. DLP: 1986 mGy-cm FINDINGS: HEAD: No intracranial mass, hemorrhage, or midline shift is visualized. The ventricles and sulci are diffusely prominent due to chronic volume loss. Fairly extensive chronic microvascular ischemic changes are seen throughout the supratentorial white matter. Chronic lacunar infarcts are seen in both basal ganglia. No extra-axial collections are identified. The paranasal sinuses and mastoid air cells are well aerated. CERVICAL SPINE: There is no evidence of acute cervical spine fracture. Vertebral bodies remain normal in height. There is slight degenerative anterolisthesis of C3 on C4 and of C4 on C5, as well as slight retrolisthesis of C5 on C6. Degenerative endplate remodeling with loss of normal disc space is most conspicuous at C5-C6. There is bulky multilevel facet arthrosis. No pre- or paravertebral soft tissue abnormality is identified. The lung apices are better assessed on the patient's dedicated chest CT. IMPRESSION: 1. No acute intracranial pathology. 2. No CT evidence of acute cervical spine fracture or traumatic subluxation. Findings were discussed with DARRYL Zelaya, at 9:00 pm.
--- NOTE | 2018-03-01 21:17 | CT SCAN REPORT ---
EXAMINATION: CT ANGIOGRAM NECK AND BRAIN CLINICAL INFORMATION: 83-year-old woman who is unresponsive. COMPARISON: 03/01/[address] TECHNIQUE: Test bolus sequences followed by intravenous administration 94 mL of Optiray 320. Helical imaging was performed in the axial plane from the thoracic inlet to the skull vertex. Delayed postcontrast imaging of the head was also performed. The data was processed at the electrical engineering technologist's workstation for generation of MIP sequences. Angled MIPs and volume rendered reformatted images were also generated at an offline 3D workstation. Stenoses are assessed in accordance with NASCET criteria unless otherwise indicated. DLP: 1116 mGy-cm FINDINGS: Brain: No intracranial mass, hemorrhage, extra-axial collection, or midline shift is apparent. Chronic ischemic changes and volume loss are again noted. No pathologic intra-axial enhancement or regional oligemia is visualized. The paranasal sinuses remain well aerated. Cervical soft tissues and lung apices: The lung apices are better assessed on the patient's dedicated chest CT. An endotracheal tube is visible. Chest CTA: There is a classic 3 vessel configuration of the aortic arch. Proximal arch vessels are non-stenotic. The left vertebral artery is dominant. No significant ostial stenosis is visualized on either side. Neck CTA: Both vertebral arteries are widely patent throughout their extracranial cervical course. Both common and internal carotid arteries are normal in course and caliber. There is mild calcified atherosclerotic plaquing seen at both carotid bifurcations. Brain CTA: There is normal opacification of major intracranial arteries. No focal flow-limiting stenosis, discrete proximal large artery occlusion, or saccular intradural aneurysm is identified. Timing of the contrast allows assessment of the major dural venous sinuses, which all opacify normally. IMPRESSION: No significant cervicocerebral vascular stenosis or acute intracranial large artery occlusion.
--- NOTE | 2018-03-01 21:32 | CT SCAN REPORT ---
EXAMINATION: CT ABDOMEN CHEST, ABDOMEN, AND PELVIS WITHOUT CONTRAST CLINICAL INFORMATION: 83-year-old woman post fall, now unresponsive. COMPARISON: 04/24/[address], 08/11/[address] TECHNIQUE: Multidetector volumetric imaging was performed from the thoracic inlet through the pubic symphysis. Sagittal and coronal reformatted images were obtained on the technologist's workstation. DLP: 889 mGy-cm FINDINGS: CHEST: Chronic changes related to pulmonary fibrosis are again noted with lower lobe predominant peripheral reticular opacity, honeycombing, and bronchiectasis. Previously described tiny pulmonary nodules and calcified granulomata are less well seen on today's exam due to motion. Extensive calcified atherosclerotic plaquing is again noted of the thoracic aorta. There is stable ectasia and prominence of the ascending aorta. The pulmonary arteries are also prominent and there is multichamber cardiac enlargement. No significantly enlarged mediastinal, hilar, or axillary lymph nodes are appreciated. There are no pleural or pericardial effusions. An endotracheal tube is visible in the trachea. ABDOMEN: The liver, spleen, pancreas, adrenals, and mildly atrophic kidneys remain normal in appearance. There is cholelithiasis without evidence of acute inflammation. PELVIS: There is extensive colonic diverticulosis without evidence of acute inflammation. Small bowel loops are nondilated. There is diastases of the lower ventral abdominal wall with a small probable hernia containing some bowel wall and the anterior portion of the bladder. Pelvic viscera are not visible and may be surgically absent. MSK: There is a comminuted intertrochanteric fracture of the left femur with varus angulation and superior displacement of the distal femoral fragment. There is associated soft tissue hematoma around the fracture extending into the upper thigh. Degenerative changes are seen throughout the thoracolumbar spine without convincing evidence of an acute vertebral compression fracture. IMPRESSION: 1. No CT evidence of acute traumatic injury in the chest, abdomen, or pelvis on this noncontrast study. 2. Comminuted and angulated intertrochanteric fracture of the femur.
--- NOTE | 2018-03-01 23:38 | History & Physical ---
Lion Antonio MD 03/01/18 5240: General Information and HPI MD Statement: I have seen and personally examined FEMI AREVALO and documented this H&P. The patient is a 83 year old F who presented with a patient stated chief complaint of fall. Source of Information: patient, family, old records Exam Limitations: clinical condition History of Present Illness: 83 year old female with past medical history significant for coronary artery disease on aggrenox, diabetes on insulin, hypertension, diverticulitis (2012), ILD, CKD stage IIIB, bradycardia and dementia presents after a fall, apparently from a mechanical fall landing on her left hip with a left intertrochanteric comminuted displaced femur fracture. She denied any head strike and denied loss of consciousness. She reports severe pain in her left hip and lower extremity as well as her lower back and was given morphine and ofirmev. She was taken at [address] imaging of the head when she became unresponsive, with reported seizure like activity by the thermal technician, obstructed respiratory noises, left sided facial droop and left sided gaze, GCS 3 and absent gag reflex, with no response to naloxone so the patient was subsequently intubated for airway protection without incident. According to the son he was called by [employer], that had detected his mother's fall around 1800. Prior to her mental status change, he said she appeared uncomfortable, was only saying "help me" and had some unusual shaking activity especially her left upper extremity. The patient was taken back to CT scan for a CT of the head neck chest abdomen and pelvis. Neurology was called and a CTA of the head and neck was obtained to evaluate for stroke. TPA was not given. She was given 2mg of ativan for sedation. The patient was unable to provide a review of systems but the patient lives in an efficiency unit, has mild dementia but is able to administer her own insulin. She uses a walker but sometimes forgets and has had three mechanical falls in the past year. She has a history of an aortic valve replacement and bilateral knee replacements mostly recently 08/2017. Her donepezil dose was recently increased to 10mg BID and she had some recent bradycardia into the 50s for which they were awaiting an upcoming appointment with Dr. Krishna Lane to possibly decrease the metoprolol dose. Allergies/Medications Allergies: Coded Allergies: NO KNOWN ALLERGIES (04/30/16) Home Med list Cholecalciferol (Vitamin D3) (Vitamin D) 5,000 UNIT TABLET 1 TAB PO DAILY SUPPLEMENT (Reported) Cyanocobalamin (Vitamin B-12) 1,000 MCG TABLET 1 TAB PO DAILY SUPPLEMENT ( Reported) Dipyridamole W/ Aspirin (Aggrenox 25 MG-200 MG Capsule) 25 MG-200 MG CPMP.12HR 1 CAP PO BID BLOOD THINNER (Reported) Docusate Sodium (Colace) 100 MG CAPSULE 1 CAP PO DAILY STOOL SOFTENER ( Reported) Donepezil HCl (Aricept) 10 MG TABLET 1 TAB PO QPM DEMENTIA (Reported) Doxycycline Hyclate 50 MG CAPSULE 1 CAP PO DAILY ABX (Reported) Escitalopram Oxalate (Lexapro) 10 MG TABLET 1 TAB PO DAILY ANXIETY (Reported) Ferrous Sulfate 325 MG (65 MG IRON) TABLET 1 TAB PO DAILY SUPPLEMENT ( Reported) Insulin Aspart (Novolog) 100 UNIT/ML VIAL 4 UNITS SC QAM DM (Reported) Insulin Aspart (Novolog) 100 UNIT/ML VIAL 8 UNITS SC DAILY DM (Reported) Insulin Detemir (Levemir) 100 UNIT/ML VIAL 6 UNITS SC QAM DM (Reported) Insulin Detemir (Levemir) 100 UNIT/ML VIAL 4 UNITS SC QPM DM (Reported) Losartan Potassium 50 MG TABLET 1 TAB PO DAILY BP (Reported) Meloxicam 7.5 MG TABLET 1 TAB PO DAILY PAIN/INFLAMMATION (Reported) Metoprolol Succ XL (Toprol XL) 25 MG TAB 1 TAB PO DAILY HTN (Reported) Rosuvastatin Calcium (Crestor) 20 MG TABLET 1 TAB PO DAILY CHOLESTEROL ( Reported) Compliance With Home Meds: GOOD Past History Travel History Traveled to [place] past 21 day No Medical History Neurological: NONE EENT: NONE Cardiovascular: BRADYCARDIA, HTN Respiratory: LUNG SCARRING Gastrointestinal: DIVERTIC Hepatic: NONE Renal: NONE Musculoskeletal: NONE Psychiatric: NONE Endocrine: TYPE 2 DIABETES Blood Disorders: NONE Cancer(s): NONE MERCHANDISING CONSULTANT/Reproductive: NONE History of MRSA: No History of VRE: No History of CDIFF: No Surgical History Surgical History: L TKR VALVE REPLACEMENT Past Family/Social History Psychosocial History Services at Home: None Smoking Status: Never Smoked (second hand exposure) Functional Ability ADLs Independent: dressing, eating, toileting, bathing. Ambulation: walker IADLs Needs Assist: finances, medication admin. Review of Systems Review of Systems Constitutional: Reports: no symptoms. Comments unobtainable Exam & Diagnostic Data Last 24 Hrs of Vital Signs/I&O Vital Signs Date Time Temp Pulse Resp B/P B/P Pulse O2 O2 Flow FiO2 Mean Ox Delivery Rate 03/015 43 14 178/76 10 Ventilator 28% 03/01 2235 42 14 168/73 99 Ventilator 28% 03/011 28 03/01 2205 44 16 135/61 99 Ventilator 30% 03/01 2135 42 16 124/62 100 Ventilator 30% 03/01 2105 48 16 145/63 99 Ventilator 30% 03/01 2052 98.1 50 16 171/73 100 Ventilator 30% 03/01 2015 30 03/01 2008 64 16 198/82 100 Ventilator 30% 03/01 2001 64 18 188/77 100 10L 03/01 195 66 8 207/87 100 10L 03/01 1857 96.9 47 17 165/73 98 Room Air Physical Exam General Appearance intubated but responsive and following commands, intubated on ventilator, OGT Skin No Rashes, No Breakdown, No Significant Lesion Skin Temp/Moisture Exam: Warm/Dry Neck +JVD Cardiovascular bradycardic, prominent s2, early systolic murmur loudest at the base 3/6 Lungs Clear to Auscultation, anteriorly Abdomen Normal Bowel Sounds, Soft, No Tenderness, No Masses Neurological gaze to the right side, moving all extremities spontaneously, following commands Extremities No Clubbing, No Cyanosis, No Edema, Normal Pulses, LLE shortened and externally rotated Last 24 Hrs of Labs/Gucci: Laboratory Tests 03/01/182199: pH 7.40, pCO2 29 L, pO2 121 H, HCO3 17.2 L, ABG O2 Sat (Measured) 98.0, Carboxyhemoglobin 0.2 L, O2 Concentration % 30, Respiration Rate 16, O2 Delivery Method VENT, Vent Mode AC, Expiratory Pressure 5, Tidal Volume 500, Pressure Support 0, Phlebotomy Draw Site RIGHT RADIAL 03/01/182138: Urinalysis MOD H, Urine Color YEL, Urine Clarity CLEAR, Urine pH 6.0, Ur Specific [place] 1.025, Urine Protein >=300 H, Urine Ketones NEG, Urine Nitrite NEG, Urine Bilirubin NEG, Urine Urobilinogen 0.2, Ur Leukocyte Esterase NEG, Ur Microscopic SEDIMENT EXAMINED, Urine RBC 1-3, Urine WBC 1-3 H, Ur Epithelial Cells FEW, Urine Bacteria FEW H, Hyaline Casts 1-3 H, Granular Casts RARE H, Urine Mucus FEW, Urine Hemoglobin SMALL H, Urine Glucose 100 H 03/01/181916: Anion Gap 12, Estimated GFR 33 L, BUN/Creatinine Ratio 22.7, Glucose 165 H, Calcium 9.0, Total Bilirubin 0.4, AST 22, ALT 19, Alkaline Phosphatase 92, Troponin I 0.10, Total Protein 6.6, Albumin 3.4 L, Globulin 3.2, Albumin/ Globulin Ratio 1.1, Prolactin 51.9 H, PT 11.2, INR 1.03, APTT 28, CBC w Diff NO MAN DIFF REQ, RBC 3.55 L, MCV 90.3, MCH 29.0, MCHC 32.1 L, RDW 15.6 H, MPV 7.9, Gran % 86.9 H, Lymphocytes % 6.7 L, Monocytes % 4.8, Eosinophils % 1.3, Basophils % 0.3, Absolute Granulocytes 11.2 H, Absolute Lymphocytes 0.9 L, Absolute Monocytes 0.6, Absolute Eosinophils 0.2, Absolute Basophils 0 Diagnostic Data EKG Results sinus rhythm HR 66 LVH no ischemic changes bradycardic HR 40s on the monitor Other Results Brain: No intracranial mass, hemorrhage, extra-axial collection, or midline shift is apparent. Chronic ischemic changes and volume loss are again noted. No pathologic intra-axial enhancement or regional oligemia is visualized. The paranasal sinuses remain well aerated. Cervical soft tissues and lung apices: The lung apices are better assessed on the patient's dedicated chest CT. An endotracheal tube is visible. Chest CTA: There is a classic 3 vessel configuration of the aortic arch. Proximal arch vessels are non-stenotic. The left vertebral artery is dominant. No significant ostial stenosis is visualized on either side. Neck CTA: Both vertebral arteries are widely patent throughout their extracranial cervical course. Both common and internal carotid arteries are normal in course and caliber. There is mild calcified atherosclerotic plaquing seen at both carotid bifurcations. Brain CTA: There is normal opacification of major intracranial arteries. No focal flow-limiting stenosis, discrete proximal large artery occlusion, or saccular intradural aneurysm is identified. Timing of the contrast allows assessment of the major dural venous sinuses, which all opacify normally. IMPRESSION: No significant cervicocerebral vascular stenosis or acute intracranial large artery occlusion. CHEST: Chronic changes related to pulmonary fibrosis are again noted with lower lobe predominant peripheral reticular opacity, honeycombing, and bronchiectasis. Previously described tiny pulmonary nodules and calcified granulomata are less well seen on today's exam due to motion. Extensive calcified atherosclerotic plaquing is again noted of the thoracic aorta. There is stable ectasia and prominence of the ascending aorta. The pulmonary arteries are also prominent and there is multichamber cardiac enlargement. No significantly enlarged mediastinal, hilar, or axillary lymph nodes are appreciated. There are no pleural or pericardial effusions. An endotracheal tube is visible in the trachea. ABDOMEN: The liver, spleen, pancreas, adrenals, and mildly atrophic kidneys remain normal in appearance. There is cholelithiasis without evidence of acute inflammation. PELVIS: There is extensive colonic diverticulosis without evidence of acute inflammation. Small bowel loops are nondilated. There is diastases of the lower ventral abdominal wall with a small probable hernia containing some bowel wall and the anterior portion of the bladder. Pelvic viscera are not visible and may be surgically absent. MSK: There is a comminuted intertrochanteric fracture of the left femur with varus angulation and superior displacement of the distal femoral fragment. There is associated soft tissue hematoma around the fracture extending into the upper thigh. Degenerative changes are seen throughout the thoracolumbar spine without convincing evidence of an acute vertebral compression fracture. Assessment/Plan Assessment: 83 year old female with past medical history significant for coronary artery disease on aggrenox, diabetes on insulin, hypertension, diverticulitis (2012), ILD, stage CKD IIIB, bradycardia and dementia presents with a left intertrochanteric comminuted displaced femur fracture after a fall. On transport to CT imaging, she had an acute mental status change, unresponsive, suspected stroke, GCS 3, and intubated for airway protection. Altered mental status: Acute change in mental status suspiscious for stroke vs seizure. History of prior left basal ganglia lacunar infarct on MRI from 2012 Continue aggrenox NCHCT and CTA head and neck were negative for acute pathology Check brain MRI Patient is currently awake, following commands with right sided gaze, moving all extremities Neuro examination is limited by clinical condition, intubated, dementia Prolactin was elevated to 52 Neurology consultation Check EEG Continue keppra for now No significant electrolyte abnormalities suggestive of metabolic encephalopathy Massive pulmonary embolism, acute myocardial infarction and cardiovascular collapse could have also could have cause decreased cerebral perfusion, patient extremely hypertensive in ED with probably reflex bradycardia Fat embolism from long bone fracture possible Cardiology consultation Echocardiogram Repeat serial troponins and EKGs Gag reflex currently intact GCS on admitting evaluation 10 Fentanyl for analgesia and sedation, caution with benzodiazepines given advanced age Consider weaning from the ventilator tomorrow as clinical condition stablilizes Respiratory alkalosis on ABG, 7.4/29/121/17.2, repeat ABG and chest x-ray tomorrow Swallow evaluation when patient's extubated, PT/OT Left intertrochanteric comminuted displaced femur fracture: Orthopedics consultation Fentanyl for analgesia Coronary artery disease with bioprosthetic aortic valve replacement Hold metoprolol for now because of bradycardia Continue aggrenox and statin therapy Losartan on hold for permissive hypertension for possible CVA Diabetes: Accuchecks TIDAC/HS Reportedly good glycemic control, recent A1C 6.0 according to the son Regular insulin NPO coverage D5-1/2NS @ 75cc/hr CKD Stage IIIB: Diabetic/hypertensive nephropathy Monitor for contrast induced nephropathy Borderline hyperkalemia at 5.2 on admission labs Repeat electrolytes and renal function on AM labs Avoid futher nephrotoxic agents Hypertension: Permissive hypertension <180/110 temporarily for suspiscion of stroke Hold metoprolol and losartan for now Dementia: Continue donepezil 10mg PO BID Continue lexapro NPO, can give meds through OGT DVT ppx-heparin 5000 units subcutanous q8h Full code As Ranked By This Provider Problem List: 1. Unresponsive 2. Respiratory failure 3. Fracture of left hip Qualifiers Encounter type: initial encounter Fracture type: closed Qualified Code: S72.002A - Fracture of unspecified part of neck of left femur, initial encounter for closed fracture Core Measures/Misc (08/17) Acute Coronary Syndrome ACS Diagnosis: No Congestive Heart Failure Congestive Heart Failure Diagnosis No Cerebrovascular Accident CVA/TIA Diagnosis: Yes NIH Stroke Scale: Total 7 Date Last Known Well: 03/01/18 Time Last Known Well: 1914 Symptom Start Date: 03/01/18 Symptom Start Time: 1929 Reason tPA not ordered Medical Contraindication Swallow Evaluation Not Done (intubated) Current/Past Hx AFib/AFlutter No Comment nih ~7 pt intubated/sedated VTE (View Protocol) VTE Risk Factors Age>40 No Mechanical VTE Prophylaxis d/t N/A MechProphylax Ordered No VTE Pharm Prophylaxis d/t NA PharmProphylax ordered Sepsis (View protocol) Sepsis Present: No Shari SU,[facility] 03/02/18 0104: Resident Review Statement Resident Statement: examined this patient, discussed with software development intern, agreed with software development intern, discussed with family, reviewed EMR data (avail) Other Findings: History was difficult to obtain because of medical condition, she is intubated, lethargic, and obtunded but arousable to vocal stimuli. 83-year-old female with PMH of diverticulitis, CAD, IDDM, HTN, ILD, bradycardia, and dementia who was brought in after she had a fall that triggered the life alarm. ED reported that the patient denies head trauma or LOC. On presentation she reports severe left groin pain, the patient was sent for phipp[place] CT, during CT she had the seizure like activity that was witnessed by the oil burner technician. She was then noticed to have respiratory stridor, left-sided facial drop, left side gaze , followed by unresponsiveness. The patient was intubated in the ED for airway protection. CT hip confirmed intratrochanteric displaced femur fracture. CT of the head neck chest abdomen and pelvis did not reveal any significant abnormalities. Neurology was called and recommended CTA of the head and neck to further evaluate for stroke. TPA was not given because of recent head trauma and left hip fracture. Her son reported that at baseline she ambulates using a walker, she has a baseline dementia and he helps her with her medications. Her donepezil was recently increased. She has a bradycardia in the upper 50s for which she was scheduled to business technology teacher Dr. Lane. On admission: Vitals were BP 200/80, HR 47, Temp 97, and was saturating upper 90s on room air. Significant labs leukocytosis 12.9, H&H 10.3& 32, K 5.2, creatinine 1.5, glucose 165, calcium 9, troponin 0.1, prolactin 51.9. Head and neck CTA showed no significant vascular abnormality, CT abdomen/pelvis, chest and cervical were significant for angulated intertrochanteric fracture of the femur and pulmonary fibrosis. Assessment: 83-year-old female with multiple comorbidities who presented after a fall. We were unable to obtain detailed history from the patient given that she was intubated during admission. Patient had was seems to be episode of seizure in the ED. Initial blood workup showed elevated prolactin which support diagnosis of seizure. Patient never had a history of seizure in the past, underlying cause of seizure is currently unclear. Even though CTA head and neck did not show any significant arteries abnormalities stroke still in the differential. The abnormal neurological finding that was observed in the ED can be possibly secondary to reji's paralysis. She has a history of bradycardia and dementia that also may play a role behind the fall. #AMS with episode of seizure currently intubated for airway protection * Admit to ICU * EEG * Start Keppra 1000 mg loading dose followed by 750 twice a day * MRI head to rule out stroke * Continue statin and Aggrenox * We will start IV Protonix while intubated and mechanically ventilated * Repeat ABG and adjust ventilator accordingly * Seizure precaution #Bradycardia, CAD, HTN, hx of bioprosthetic aortic valve replacement * We will hold metoprolol * Continue Aggrenox * Continue statin * Hold all antihypertensive medication for permissive hypertension * Rule out ACS with serial troponins and EKG * We will order echocardiogram if was not done recently by cardiology as an outpatient * Consult cardiology Dr. Anutnez #Left intratrochanteric displaced femur fracture * We'll start patient in fentanyl drip * Orthopedic consult in the morning #Insulin-dependent diabetes mellitus * Patient is currently nothing by mouth * Hold Levemir * Fingerstick glucose level * Novolin R insulin SS #Dementia * Continue donepezil 10 mg by mouth twice a day * Continue Lexapro -NPO -DVT PPX heparin subcutaneous -Full code Santiago Telles MD 03/02/18 0400: Attending MD Review Statement Attending Statement Attending MD Statement: examined this patient, discuss w/resident/PA/MACHINE PRINTER HOSE, agreed w/resident/PA/MACHINE PRINTER HOSE, discussed with family, reviewed EMR data (avail) Attending Assessment/Plan: Ms. Arevalo is a 83-year-old female with PMH of aortic valve replacement, coronary artery disease, stroke (left basal ganglia lacunar infarct on MRI from 2012) on Aggrenox, diverticulitis, IDDM, HTN, Interstitial lung disease, and dementia who was brought in after she had a fall. When the patient was undergoing CT imaging of the head she became unresponsive, with a suspected seizure-like activity, left sided facial droop and left sided gaze, the patient was subsequently intubated for airway protection as the patient did not respond to naloxone too. On examination - blood pressure 165/73 heart rate of 48 afebrile saturating 98% on room and initially however patient was then placed on ventilatory support General Appearance intubated, responds to commands Skin No Rashes, No Breakdown, No Significant Lesion Skin Temp/Moisture Exam: Warm/Dry Neck Supple Cardiovascular S1, S2 regular, 2/6 systolic murmur heard in the aortic area Lungs Clear to Auscultation Abdomen Normal Bowel Sounds, Soft, No Tenderness, No Masses Neurological Moving all extremities spontaneously, following commands, pupils minimally reactive 2mm Extremities No Clubbing, No Cyanosis, No Edema, Pulses intact, LLE foreshortened and externally rotated Assessment 1. Altered mental status - ?Ischemic stroke 2. On Mechanical ventilation for airway protection 3. New onset Seizure 4. Left intertrochanteric femur fracture 5. CAD, IDDM 6. CKD stage III Plan Follow stroke core measures until ruled out by MRI. Obtain neurology recommendations Continue with Keppra IV 750 mg twice a day for seizures - already given loading dose. EEG monitoring Unable to obtain a CT pulmonary embolism protocol due to renal dysfunction, however at LOW risk as per Well's score ABG, 7.4/29/121/17.2. Reduced RR and FiO2. Will repeat ABG in AM Will obtain cardiology consult, follow up on serial troponins and EKGs Awaiting orthopedic recommendations DVT prophylaxis Heparin SC TID
--- NOTE | 2018-03-02 00:04 | RADIOLOGY REPORT ---
EXAMINATION: XR PORTABLE CHEST CLINICAL INFORMATION: OG-tube COMPARISON: Chest x-ray November 30, 2013 TECHNIQUE: Portable frontal view of the chest was obtained. 11:12 PM FINDINGS: Patient's rotated to the left. Endotracheal tube in place. Catheter approximately 5.4 cm above the ld. Nasogastric tube in stomach. Status post median sternotomy for cardiac valve replacement. Heart size is enlarged. There are calcifications of aortic arch. There is chronic increased lung markings. These are unchanged since prior study. No pulmonary vascular congestion. No pleural effusion or pneumothorax. IMPRESSION: 1. Endotracheal tube 5.4 centers above ld. 2. Nasogastric tube in stomach. 3. Chronic increased interstitial lung markings. No acute change of the chest.
[2018-03-02 00:36] VITALS: BP 180/90
[2018-03-02 04:57] LABS: ABSOLUTE BASOPHIL COUNT 0 /CUMM (0.0-0.2); ABSOLUTE EOSINOPHIL COUNT 0 /CUMM (0.0-0.7); ABSOLUTE GRANULOCYTE CT 16.8 /CUMM (1.4-6.5); ABSOLUTE LYMPH COUNT 0.8 /CUMM (1.2-3.4); ABSOLUTE MONOCYTE COUNT 1.2 /CUMM (0.10-0.60); BASOPHIL % 0 % (0.0-2.0); EOSINOPHIL % 0 % (0-5); GRANULOCYTE % 89.6 % (42.2-75.2); HEMATOCRIT 27.2 % (37-47); MEAN CORPUSCULAR HGB 29.5 PG (27.0-31.0); MEAN CORPUSCULAR HGB CONC 32.8 G/DL (33.0-37.0); MEAN CORPUSCULAR VOLUME 89.8 FL (81.0-99.0); MEAN PLATELET VOLUME 8.3 FL (7.4-10.4); PLATELET COUNT 265 /CUMM (130-400); RBC DISTRIBUTION WIDTH 15.7 % (11.5-14.5); RED BLOOD CELL CT 3.03 /CUMM (4.20-5.40); WHITE BLOOD CELL COUNT 18.8 /CUMM (4.8-10.8)
--- NOTE | 2018-03-02 06:41 | RADIOLOGY REPORT ---
EXAMINATION: XR PORTABLE CHEST CLINICAL INFORMATION: Respiratory failure. Status post intubation. COMPARISON: Chest x-ray 03/01/2018 TECHNIQUE: Portable frontal view of the chest was obtained. 6:04 AM FINDINGS: Patient's rotated to the left. Endotracheal tube catheter about 6 cm above ld. Nasogastric tube in stomach. Status post median sternotomy for cardiac valve repair. Heart size is enlarged. There are calcifications of aortic arch. There is chronic increased lung markings. There is vague density at the left lung base and left basilar infiltrate/atelectasis may be present. No focal consolidation in the right lung. IMPRESSION: 1. Endotracheal tube about 6 cm above ld. 2. Nasogastric tube in stomach. 3. Increasing hazy density left lung base, possible left basilar infiltrate/atelectasis.
[2018-03-02 08:00] VITALS: BP 148/68
--- NOTE | 2018-03-02 08:06 | Cons- CRCU ---
Rosalio SU,Alma 03/02/18 0806: General Information and HPI Consulting Request Date of Consult: 03/02/18 Requested By: Dr. Telles Reason for Consult: AMS, Inubated Possible Stroke vs Seizure Exam Limitations: clinical condition, dementia History of Present Illness: Patient is an 83-year-old female with past medical history of coronary artery disease, lacunar infarct in 2012 (on Aggrenox), diabetes ([id number]) , hypertension, diverticulitis, interstitial lung disease, chronic kidney disease stage III, bradycardia and dementia presenting this admission with a left intertrochanteric comminuted displaced femur fracture seen on imaging status post apparent mechanical fall. Patient is currently intubated. History obtained from records and patient's son. Patient received morphine and Tylenol for pain in the ED and was taken for imaging. On day of admission patient was taken to CT for imaging of her head at which point she had a seizure-like activity reported by the solar technician and became unresponsive. Examination at that point revealed obstructed respiratory noises, left-sided facial droop and left-sided gaze with an absent gag relex with a Blanca's coma scale of 3. There is also report that patient had an episode of bradycardia down to the 20s. Patient was given naloxone with no response and was intubated to protect her airway. Neurology was called and a CTA of head and neck was obtained for evaluation of stroke. CTA showed no significant vascular stenosis or acute intracranial artery occlusion. Head and cervical spine CT showed no acute intracranial pathology or evidence of acute cervical spine fracture/traumatic subluxation. Patient did not receive TPA. She was given 2 mg of Ativan for sedation. The patient was admitted to the ICU, intubated a fentanyl drip and D5 half- normal saline. Patient received loading dose of Keppra was started on Keppra IV 750 mg twice a day for suspected seizures. Past medical history as above, left basal ganglia lacunar infarct seen on MRI in 2012 Past surgical history: Aortic valve replacement, bilateral knee replacements ( 2017) Social history: Patient lives by herself. Patient uses a walker/cane at baseline. Patient's son brings her groceries and places her medications in a pill box. Medications: Donepezil increased to 10 mg twice a day, vitamin D, vitamin B12, Aggrenox, Colace, escitalopram 10 mg daily, iron, NovoLog, Levemir, losartan 50 mg, meloxicam 7.5 mg, metoprolol 25 mg, rosuvastatin 20 mg Per patient's son: Patient's aged or disabled care worker is Dr. Antunez. She had an upcoming appointment for bradycardia. Patient's orthopedic surgeon is Dr. Umaña Patient's neurologist is Dr. Ann Patient's pcp is Dr. Villagran Patient has a ticket clerk he sees in [place]. Today: Vitals: MAXIMUM TEMPERATURE 97.8, heart rate 47-53, sinus bradycardia, respiration 20, blood pressure 152/72 which has come down from 195/74, saturating at 96 7% on mechanical ventilation with tidal volume of 500, FiO2 of 28% and PEEP of 5 and a rate of 14 Labs: WBC 18.8 with 89.6% granulocytes and 10 bands (up from 12.9) Sodium 135, potassium 4.6, chloride 105, bicarbonate 21, BUN 31, creatinine 1.4, glucose 160, calcium 8.2, albumin 2.8, phosphorus 5.0, magnesium 1.9, LFTs within normal limits First troponin 0.10, second troponin 0.17 ABG: PH 7.39 PCO2 32, PO2 108, bicarbonate 19, ABG O2 sat 97% on mechanical ventilation Chest x-ray: Endotracheal tube in place, NG tube in place, increasing hazy density of left lung base (possible left basilar infiltrate/atelectasis) Allergies/Medications Allergies: Coded Allergies: NO KNOWN ALLERGIES (04/30/16) Home Med List: Cholecalciferol (Vitamin D3) (Vitamin D) 5,000 UNIT TABLET 1 TAB PO DAILY SUPPLEMENT (Reported) Cyanocobalamin (Vitamin B-12) 1,000 MCG TABLET 1 TAB PO DAILY SUPPLEMENT ( Reported) Dipyridamole W/ Aspirin (Aggrenox 25 MG-200 MG Capsule) 25 MG-200 MG CPMP.12HR 1 CAP PO BID BLOOD THINNER (Reported) Docusate Sodium (Colace) 100 MG CAPSULE 1 CAP PO DAILY STOOL SOFTENER ( Reported) Donepezil HCl (Aricept) 10 MG TABLET 1 TAB PO QPM DEMENTIA (Reported) Doxycycline Hyclate 50 MG CAPSULE 1 CAP PO DAILY ABX (Reported) Escitalopram Oxalate (Lexapro) 10 MG TABLET 1 TAB PO DAILY ANXIETY (Reported) Ferrous Sulfate 325 MG (65 MG IRON) TABLET 1 TAB PO DAILY SUPPLEMENT ( Reported) Insulin Aspart (Novolog) 100 UNIT/ML VIAL 4 UNITS SC QAM DM (Reported) Insulin Aspart (Novolog) 100 UNIT/ML VIAL 8 UNITS SC DAILY DM (Reported) Insulin Detemir (Levemir) 100 UNIT/ML VIAL 6 UNITS SC QAM DM (Reported) Insulin Detemir (Levemir) 100 UNIT/ML VIAL 4 UNITS SC QPM DM (Reported) Losartan Potassium 50 MG TABLET 1 TAB PO DAILY BP (Reported) Meloxicam 7.5 MG TABLET 1 TAB PO DAILY PAIN/INFLAMMATION (Reported) Metoprolol Succ XL (Toprol XL) 25 MG TAB 1 TAB PO DAILY HTN (Reported) Rosuvastatin Calcium (Crestor) 20 MG TABLET 1 TAB PO DAILY CHOLESTEROL ( Reported) Past History Travel History Traveled to [place] past 21 day No Medical History Neurological: NONE EENT: NONE Cardiovascular: BRADYCARDIA, HTN Respiratory: LUNG SCARRING Gastrointestinal: DIVERTIC Hepatic: NONE Renal: NONE Musculoskeletal: NONE Psychiatric: NONE Endocrine: TYPE 2 DIABETES Blood Disorders: NONE Cancer(s): NONE CUSTOMER RETENTION SPECIALIST/Reproductive: 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 Home Services at Home: None Smoking Status: Never Smoked (second hand exposure) Functional Ability ADLs Independent: dressing, eating, toileting, bathing. Ambulation: walker IADLs Needs Assist: finances, medication admin. Exam & Diagnostic Data Last 24 Hrs of Vital Signs/I&O Vital Signs Date Time Temp Pulse Resp B/P B/P Pulse O2 O2 Flow FiO2 Mean Ox Delivery Rate 03/02 0823 28 03/02 0800 97 Ventilator 28% 03/02 08 97.1 52 14 148/68 97 Ventilator 28% 03/02 0601 28 03/02 0400 97 Ventilator 28% 03/02 0340 28 03/02 0113 99 Ventilator 28% 03/02 0043 99 Ventilator 28% 03/02 0036 97.6 48 16 180/90 99 Ventilator 28% 04 0005 03/01 2305 43 14 178/76 10 Ventilator 28% 03/01 2235 42 14 168/73 99 Ventilator 28% 03/01 22303/01 2205 44 16 135/61 99 Ventilator 30% 03/015 42 16 124/62 100 Ventilator 30% 03/01 2105 48 16 145/63 99 Ventilator 30% 03/01 2052 98.1 50 16 171/73 100 Ventilator 30% 03/01 2015 30 03/01 2008 64 16 198/82 100 Ventilator 30% 03/01 2001 64 18 188/77 100 10L 03/01 1955 66 8 207/87 100 10L 03/01 1857 96.9 47 17 165/73 98 Room Air Intake & Output 03/02 1600 03/02 0800 04 0000 Intake Total 538 Output Total 740 50 Balance -202 -50 Intake, IV 538 Number 1 Bowel Movements Output, 50 Gastric Drainage Output, Urine 740 Physical Exam General Appearance: well developed/nourished, no apparent distress, sedated, intubated, arousable, follows commands Head: atraumatic, normal appearance Eyes: Bilateral: normal appearance, PERRL, EOMI. Neck: normal inspection Respiratory: normal breath sounds, chest non-tender, no respiratory distress, quiet respiration, lungs clear Cardiovascular: regular rate/rhythm Peripheral Pulses: 2+ carotid (R), 2+ carotid (L) Gastrointestinal: normal bowel sounds, soft, non-tender Neurologic/Psych: no motor/sensory deficits, patient follows commands, moving all extremities Cranial Nerves: normal hearing, PERRL Last 48 Hrs of Labs/Gucci: Laboratory Tests 03/02/18 0400: Anion Gap 9, Estimated GFR 36 L, Glucose 160 H, Calcium 8.2 L, Phosphorus 5.0 H, Magnesium 1.9, Total Bilirubin 0.4, AST 20, ALT 17, Troponin I 0.17 *H, Albumin 2.8 L, CBC w Diff MAN DIFF ORDERED, RBC 3.03 L, MCV 89.8, MCH 29.5, MCHC 32.8 L, RDW 15.7 H, MPV 8.3, Gran % 89.6 H, Lymphocytes % 4.1 L, Monocytes % 6.3, Eosinophils % 0, Basophils % 0, Absolute Granulocytes 16.8 H, Segmented Neutrophils 80 H, Band Neutrophils 10 H, Absolute Lymphocytes 0.8 L , Lymphocytes 5 L, Monocytes 5, Absolute Monocytes 1.2 H, Absolute Eosinophils 0, Absolute Basophils 0, Platelet Estimate ADEQUATE, Hypochromic-Microcytic 1+, Anisocytosis 1+, Kenneth Cells FEW, Elliptocytes 1+ 03/02/18 0320: pH 7.39, pCO2 32 L, pO2 108 H, HCO3 19 L, ABG O2 Sat (Measured) 97.0, P-50 ( Temp Corrected) Y, Carboxyhemoglobin 0.3 L, O2 Concentration % 28%, Temperature 97.6, Respiration Rate 14, O2 Delivery Method ESPRIT, Vent Mode AC, Expiratory Pressure 5, Tidal Volume 500, Phlebotomy Draw Site RIGHT RADIAL 03/01/18 2200: pH 7.40, pCO2 29 L, pO2 121 H, HCO3 17.2 L, ABG O2 Sat (Measured) 98.0, Carboxyhemoglobin 0.2 L, O2 Concentration % 30, Respiration Rate 16, O2 Delivery Method VENT, Vent Mode AC, Expiratory Pressure 5, Tidal Volume 500, Pressure Support 0, Phlebotomy Draw Site RIGHT RADIAL 03/01/182138: Urinalysis MOD H, Urine Color YEL, Urine Clarity CLEAR, Urine pH 6.0, Ur Specific Thatcher 1.025, Urine Protein >=300 H, Urine Ketones NEG, Urine Nitrite NEG, Urine Bilirubin NEG, Urine Urobilinogen 0.2, Ur Leukocyte Esterase NEG, Ur Microscopic SEDIMENT EXAMINED, Urine RBC 1-3, Urine WBC 1-3 H, Ur Epithelial Cells FEW, Urine Bacteria FEW H, Hyaline Casts 1-3 H, Granular Casts RARE H, Urine Mucus FEW, Urine Hemoglobin SMALL H, Urine Glucose 100 H 03/01/18 1917: Anion Gap 12, Estimated GFR 33 L, BUN/Creatinine Ratio 22.7, Glucose 165 H, Calcium 9.0, Total Bilirubin 0.4, AST 22, ALT 19, Alkaline Phosphatase 92, Troponin I 0.10, Total Protein 6.6, Albumin 3.4 L, Globulin 3.2, Albumin/ Globulin Ratio 1.1, TSH &T3 &Free T4 Intrp 4.190, Prolactin 51.9 H, PT 11.2, INR 1.03, APTT 28, CBC w Diff NO MAN DIFF REQ, RBC 3.55 L, MCV 90.3, MCH 29.0, MCHC 32.1 L, RDW 15.6 H, MPV 7.9, Gran % 86.9 H, Lymphocytes % 6.7 L, Monocytes % 4.8, Eosinophils % 1.3, Basophils % 0.3, Absolute Granulocytes 11.2 H, Absolute Lymphocytes 0.9 L, Absolute Monocytes 0.6, Absolute Eosinophils 0.2 , Absolute Basophils 0 Assessment/Plan CRCU Impression/Plan: Patient is an 83-year-old female with past medical history of coronary artery disease, lacunar infarct in 2013 (on Aggrenox), diabetes ([id number]) , hypertension, diverticulitis, interstitial lung disease, chronic kidney disease stage III, bradycardia and dementia presenting this admission with a left intertrochanteric comminuted displaced femur fracture seen on imaging status post apparent mechanical fall. While patient was getting imaging done she had a seizure like activity vs stroke, had bradycardia to the 20s, became unresponsive with GCS fo 3 requiring intubation to protect her airway. Patient was started on keppra for seizure prophylaxis, neurology was contacted- no TPA was given. Patient was admitted to the ICU for management of the following: Respiratory: Currently intubated due to AMS to protect airway - continue on mechanical ventilation - repeat ABG and CXR in AM - TR Infectious: Leukocytosis - likely reactive secondary to fracture and pain, however CXR shows evolving left base infiltrate - as patient is afebrile with stable vital signs will monitor off antibiotics - repeat CXR tomorrow Cardiac: Bradycardia First degree AV block - cardiology consulted - beta tonya held - continue to monitor on telemetry Elevated Troponin - likely Type II WI: demand ischemia in setting of recent fracture - cardiology consulted - serial EKG and trops trended today - ECHO pending History of CAD and HTN - continue losartan Heme: Acute on chronic anemia - History of iron deficiency anemia, on iron supplements. Acute drop in the setting of femur fracture - continue to monitor h/h Metabolic: Diabetes - Accuchecks - Insulin SS Ailmentary: NPO w/ D51/2 NS @ 75 cc/hr Neurologic: AMS 2/2 ?Stroke vs ?Seizure vs ?global hypoperfusion 2/2 bradycardia It is unclear if the patient had a stroke on day of admission or a seizure or if her seizure like activity was precipitated by a stroke. CTA and head CT were negative. Patient's prolactin was elevated. Patient also had severe bradycardia which may have lead to patient's unresponsiveness as well. Neurology was consulted. No tPA was given. Patient today is intubated with fentanyl drip today. Patient is responsive, following commands with no focal neurological deficits seen. Spoke to neurology this morning - low suspicion of stroke however still recommend giving aspirin and doing a repeat CT 24 hours after first head CT. - EEG to rule out seizure - Keppra for seizure prophylaxis - Aspirin and Statin for suspected stroke - Aggrenox held - as it cannot be crushed. Ok'ed by neurology. - Repeat head CT this evening - Cardiology on board. - Neurology on board. - Neurochecks - Aspiration precautions History of dementia - Patient's son is POA Nephrology: CKD stage III - baseline creatinine of 1.3. Currently at 1.4 - Continue to monitor - Strict I/O - Avoid nephrotoxic agents - IV fluid hydration Ortho: Communuted and displaced femur fracture - Ortho consulted. Spoke with Dr. Stewart this evening. Patient will require cardiac clearance and require medical optimization prior to surgery. Patient has an RCRI score of 3 giving her a 11% risk of a major cardiac event during surgery. Discussion of the risks and benefits of surgery will need to be discussed with the son who is the POA. DVT PPx: ALPs, GI PPx: IV Protonix Consult Acknowledgment - Thank you for your consult request. Abran Alonso MD 03/02/18 1043: Assessment/Plan CRCU Other Findings/Comments: Abran Whatley M.D. have examined this patient, reviewed available EMR data, personally reviewed images, discussed with resident/PA/WORKFORCE MANAGEMENT CONSULTANT, discussed management plan with housestaff and nursing staff, discussed managment plan all of healthcare providers, discussed management plan with patient and/or family, agreed with resident/PA/WORKFORCE MANAGEMENT CONSULTANT. The past history and parts of the chart have been autopopulated. Impression 83-year-old woman * Intubated for airway protection with a differential diagnosis of CVA versus seizure Plan -Neurology and cardiology consultations -EEG, ECHO -cont mechanical ventilation -alert family -keppra for now DVT prophylaxis at all times TTS 40 min Consult Acknowledgment - Thank you for your consult request.
--- NOTE | 2018-03-02 10:38 | Cons- Neurology ---
General Information and HPI Consulting Request Date of Consult: 03/02/18 Requested By: Santiago Telles MD Reason for Consult: Sudden unresponsiveness, rule out seizure, stroke Source of Information: old records, Attending MDs Exam Limitations: clinical condition History of Present Illness: 83 year old female admitted after what was described as a mechanical fall with a hip fracture but alert in the ER. She had denied any head strike and denied loss of consciousness. She became unresponsive at the CT scanner yesterday evening. The audio technician reported some shaking, left sided facial droop and leftward gaze. On phone contact with the ER MD a seizure was suspected and treatment [facility] recommended. The presumed cause for a seizure in this age range would be CVA, the initial head CT was negative. Intubated due to GCS 3. Today there is an additional report of bradycardia to around 20, global cerebral hypoperfusion is an alternate potential cause for the unresponsiveness and seizure-like activity. Past medical history significant for coronary artery disease on aggrenox, diabetes on insulin, hypertension, diverticulitis (2012), ILD, CKD stage IIIB, and dementia. Hx obtained prior to the episode: she "has mild dementia but is able to administer her own insulin. She uses a walker but sometimes forgets and has had three mechanical falls in the past year. She has a history of an aortic valve replacement and bilateral knee replacements mostly recently 08/2017. Her donepezil dose was recently increased to 10mg BID and she had some recent bradycardia into the 50s for which they were awaiting an upcoming appointment with Dr. Krishna Lane to possibly decrease the metoprolol dose." Allergies/Medications Allergies: Coded Allergies: NO KNOWN ALLERGIES (04/30/16) Home Med List: Cholecalciferol (Vitamin D3) (Vitamin D) 5,000 UNIT TABLET 1 TAB PO DAILY SUPPLEMENT (Reported) Cyanocobalamin (Vitamin B-12) 1,000 MCG TABLET 1 TAB PO DAILY SUPPLEMENT ( Reported) Dipyridamole W/ Aspirin (Aggrenox 25 MG-200 MG Capsule) 25 MG-200 MG CPMP.12HR 1 CAP PO BID BLOOD THINNER (Reported) Docusate Sodium (Colace) 100 MG CAPSULE 1 CAP PO DAILY STOOL SOFTENER ( Reported) Donepezil HCl (Aricept) 10 MG TABLET 1 TAB PO QPM DEMENTIA (Reported) Doxycycline Hyclate 50 MG CAPSULE 1 CAP PO DAILY ABX (Reported) Escitalopram Oxalate (Lexapro) 10 MG TABLET 1 TAB PO DAILY ANXIETY (Reported) Ferrous Sulfate 325 MG (65 MG IRON) TABLET 1 TAB PO DAILY SUPPLEMENT ( Reported) Insulin Aspart (Novolog) 100 UNIT/ML VIAL 4 UNITS SC QAM DM (Reported) Insulin Aspart (Novolog) 100 UNIT/ML VIAL 8 UNITS SC DAILY DM (Reported) Insulin Detemir (Levemir) 100 UNIT/ML VIAL 6 UNITS SC QAM DM (Reported) Insulin Detemir (Levemir) 100 UNIT/ML VIAL 4 UNITS SC QPM DM (Reported) Losartan Potassium 50 MG TABLET 1 TAB PO DAILY BP (Reported) Meloxicam 7.5 MG TABLET 1 TAB PO DAILY PAIN/INFLAMMATION (Reported) Metoprolol Succ XL (Toprol XL) 25 MG TAB 1 TAB PO DAILY HTN (Reported) Rosuvastatin Calcium (Crestor) 20 MG TABLET 1 TAB PO DAILY CHOLESTEROL ( Reported) Current Medications: Current Medications Sig/Faraz Start time Last Medication Dose Route Stop Time Status Admin Acetaminophen 0 .STK-MED ONE 03/01 1909 DC IV Acetaminophen 1,000 MG ONCE ONE 03/01 1900 DC 03/01 N/A 1 UNIT IV 03/01 191 1931 Aspirin 81 MG DAILY 03/02 1000 DC 03/02 PO 0958 Atorvastatin Calcium 80 MG 1700 03/02 1700 AC PO Dextrose/Sodium 1,000 ML Q13H 03/02 0215 AC 03/02 Chloride IV 0224 Dipyridamole/Aspirin 1 CAP BID 03/02 1000 CAN PO Doxycycline Hyclate 50 MG DAILY 03/02 1000 CAN PO Escitalopram Oxalate 10 MG DAILY 03/02 1000 AC 03/02 PO 0958 Etomidate 20 MG ONCE ONE 03/01 2015 DC 04 IV 03/01 2016 210 Fentanyl Citrate 1,000 MCG Q24H 03/02 0200 AC / Dextrose/Water 250 ML IV 0215 Heparin Sodium 25,000 UNIT Q24H / 0600 CAN (Porcine) IV Sodium Chloride 500 ML Insulin Human Regular 0 TIDAC/HS 03/02 0800 DC SC Insulin Human Regular 0 Q6 03/02 0600 AC 03/02 SC 0635 Levetiracetam 1,000 MG Q12 03/02 1000 CAN N/A 1 UNIT IV Levetiracetam 750 MG Q12 03/02 1000 AC 03/02 Sodium Chloride 100 ML IV 0958 Levetiracetam 500 MG ONCE ONE 03/02 0200 DC 03/02 N/A 1 UNIT IV 03/02 0214 0229 Levetiracetam 500 MG STAT STA 03/02 0030 DC 03/02 N/A 1 UNIT IV 03/02 0044 0131 Levetiracetam 500 MG STAT STA 03/01 2136 DC N/A 1 UNIT IV 03/01 2150 Lorazepam 2 MG ONE ONE 03/01 2230 DC IV 03/01 223 Lorazepam 0 .STK-MED ONE 03/01 2107 DC .ROUTE Lorazepam 2 MG ONE ONE 03/01 2100 DC 03/01 IV 03/01 2101 210 Lorazepam 0 .STK-MED ONE 03/01 1953 DC .ROUTE Morphine Sulfate 0 .STK-MED ONE 03/01 1932 DC .ROUTE Morphine Sulfate 2 MG ONCE ONE 03/01 1930 DC 03/01 IV 03/01 193 193 Naloxone HCl 1 MG ONCE ONE 03/01 2000 DC 03/01 IV 03/01 Naloxone HCl 0 .STK-MED ONE 03/01 2000 DC .ROUTE Pantoprazole Sodium 40 MG DAILY 03/02 1000 AC 03/02 IV 0958 Sodium Chloride 1,000 ML BOLUS ONE 03/01 2015 DC 03/01 IV 03/01 2114 210 Review of Systems Review of Systems: unobtainable Past History Travel History Traveled to [place] past 21 day No Medical History Neurological: NONE EENT: NONE Cardiovascular: BRADYCARDIA, HTN Respiratory: LUNG SCARRING Gastrointestinal: DIVERTIC Hepatic: NONE Renal: NONE Musculoskeletal: NONE Psychiatric: NONE Endocrine: TYPE 2 DIABETES Blood Disorders: NONE Cancer(s): NONE 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 Home Services at Home: None Smoking Status: Never Smoked (second hand exposure) ETOH Use: unknown Functional Ability ADLs Independent: dressing, eating, toileting, bathing. Ambulation: walker IADLs Needs Assist: finances, medication admin. Exam & Diagnostic Data Vital Signs and I&O Vital Signs Date Time Temp Pulse Resp B/P B/P Pulse O2 O2 Flow FiO2 Mean Ox Delivery Rate 03/02 0823 28 03/02 800 97 Ventilator 28% 04/02 0800 97.1 52 14 148/68 97 Ventilator 28% 04 0601 28 03/02 0400 97 Ventilator 28% 03/02 0340 28 03/02 0113 99 Ventilator 28% 03/02 0043 99 Ventilator 28% 03/02 0036 97.6 48 16 180/90 99 Ventilator 28% 04/ 0005 28 03/01 2305 43 14 178/76 10 Ventilator 28% 03/01 2235 42 14 168/73 99 Ventilator 28% 03/01 2231 28 03/01 2205 44 16 135/61 99 Ventilator 30% 03/01 2135 42 16 124/62 100 Ventilator 30% 03/01 2105 48 16 145/63 99 Ventilator 30% 03/01 2052 98.1 50 16 171/73 100 Ventilator 30% 03/01 2015 30 03/01 2008 64 16 198/82 100 Ventilator 30% 03/01 2001 64 18 188/77 100 10L 03/01 1955 66 8 207/87 100 10L 03/01 1857 96.9 47 17 165/73 98 Room Air Intake & Output 03/02 1600 03/02 0800 03/02 0000 Intake Total 538 Output Total 740 50 Balance -202 -50 Intake, IV 538 Number 1 Bowel Movements Output, 50 Gastric Drainage Output, Urine 740 Physical Exam: Intubated, color OK, looks comfortable sedated, somnolent, awakens to voice briefly Pupils 3mm ERRL EOM full and conjugate blinks to visual threat from left and right no facial assymetry resident care associate strong, equal moves both feet equally responds to touch equally left and right DTRs symmetric no Babinski signs Last 48 Hours of Lab Results: Laboratory Tests 03/02 03/02 1000 0400 Chemistry Sodium (137 - 145 mmol/L) 135 L Potassium (3.5 - 5.1 mmol/L) 4.6 Chloride (98 - 107 mmol/L) 105 Carbon Dioxide (22 - 30 mmol/L) 21 L Anion Gap (5 - 16) 9 BUN (7 - 17 mg/dL) 31 H Creatinine (0.5 - 1.0 mg/dL) 1.4 H Estimated GFR (>60 ml/min) 36 L Glucose (65 - 99 mg/dL) 160 H Calcium (8.4 - 10.2 mg/dL) 8.2 L Phosphorus (2.5 - 4.5 mg/dL) 5.0 H Magnesium (1.6 - 2.3 mg/dL) 1.9 Total Bilirubin (0.2 - 1.3 mg/dL) 0.4 AST (14 - 36 U/L) 20 ALT (9 - 52 U/L) 17 Troponin I (< 0.11 ng/ml) Pending 0.17 *H Albumin (3.5 - 5.0 g/dL) 2.8 L Hematology CBC w Diff MAN DIFF ORDERED WBC (4.8 - 10.8 /CUMM) 18.8 H RBC (4.20 - 5.40 /CUMM) 3.03 L Hgb (12.0 - 16.0 G/DL) 8.9 L Hct (37 - 47 %) 27.2 L MCV (81.0 - 99.0 FL) 89.8 MCH (27.0 - 31.0 PG) 29.5 MCHC (33.0 - 37.0 G/DL) 32.8 L RDW (11.5 - 14.5 %) 15.7 H Plt Count (130 - 400 /CUMM) 265 MPV (7.4 - 10.4 FL) 8.3 Gran % (42.2 - 75.2 %) 89.6 H Lymphocytes % (20.5 - 51.1 %) 4.1 L Monocytes % (1.7 - 9.3 %) 6.3 Eosinophils % (0 - 5 %) 0 Basophils % (0.0 - 2.0 %) 0 Absolute Granulocytes (1.4 - 6.5 /CUMM) 16.8 H Segmented Neutrophils (42.2 - 75.2 %) 80 H Band Neutrophils (0.0 - 5.0 %) 10 H Absolute Lymphocytes (1.2 - 3.4 /CUMM) 0.8 L Lymphocytes (20.5 - 51.1 %) 5 L Monocytes (1.7 - 9.3 %) 5 Absolute Monocytes (0.10 - 0.60 /CUMM) 1.2 H Absolute Eosinophils (0.0 - 0.7 /CUMM) 0 Absolute Basophils (0.0 - 0.2 /CUMM) 0 Platelet Estimate (ADEQUATE) ADEQUATE Hypochromic-Microcytic 1+ Anisocytosis 1+ Kenneth Cells FEW Elliptocytes 1+ 03/02 03/01 0320 2200 Blood Gas pH (7.35 - 7.45 PH) 7.39 7.40 pCO2 (35 - 45 TORR) 32 L 29 L pO2 (80 - 100 TORR) 108 H 121 H HCO3 (21 - 28 MEQ/L) 19 L 17.2 L ABG O2 Sat (Measured) (>96.0 %) 97.0 98.0 P-50 (Temp Corrected) Y Carboxyhemoglobin (1.5 - 5.0 %) 0.3 L 0.2 L O2 Concentration % 28% 30 Temperature (97.0 - 100.0 FARH) 97.6 Respiration Rate (BPM) 14 16 O2 Delivery Method ESPRIT VENT Vent Mode AC AC Expiratory Pressure (CMH2O/P) 5 5 Tidal Volume (CC) 500 500 Pressure Support (CMH2O/P) 0 Miscellaneous Phlebotomy Draw Site RIGHT RADIAL RIGHT RADIAL 03/01 2139 Urines Urinalysis MOD H Urine Color (YEL,AMB,STR) YEL Urine Clarity (CLEAR) CLEAR Urine pH (5.0 - 8.0) 6.0 Ur Specific [place] (1.001 - 1.035) 1.025 Urine Protein (NEG,<30 MG/DL) >=300 H Urine Ketones (NEG) NEG Urine Nitrite (NEG) NEG Urine Bilirubin (NEG) NEG Urine Urobilinogen (0.1 - 1.0 EU/dl) 0.2 Ur Leukocyte Esterase (NEG) NEG Ur Microscopic SEDIMENT EXAMINED Urine RBC (0 - 5 /HPF) 1-3 Urine WBC (0 - 2 /HPF) 1-3 H Ur Epithelial Cells (NONE,FEW) FEW Urine Bacteria (NEG/NONE) FEW H Hyaline Casts (0/LPF) 1-3 H Granular Casts (NONE /LPF) RARE H Urine Mucus (FEW,NONE) FEW Urine Hemoglobin (NEG) SMALL H Urine Glucose (N MG/DL) 100 H 03/01 1917 Chemistry Sodium (137 - 145 mmol/L) 137 Potassium (3.5 - 5.1 mmol/L) 5.2 H Chloride (98 - 107 mmol/L) 102 Carbon Dioxide (22 - 30 mmol/L) 23 Anion Gap (5 - 16) 12 BUN (7 - 17 mg/dL) 34 H Creatinine (0.5 - 1.0 mg/dL) 1.5 H Estimated GFR (>60 ml/min) 33 L BUN/Creatinine Ratio (7 - 25 %) 22.7 Glucose (65 - 99 mg/dL) 165 H Calcium (8.4 - 10.2 mg/dL) 9.0 Total Bilirubin (0.2 - 1.3 mg/dL) 0.4 AST (14 - 36 U/L) 22 ALT (9 - 52 U/L) 19 Alkaline Phosphatase (<127 U/L) 92 Troponin I (< 0.11 ng/ml) 0.10 Total Protein (6.3 - 8.2 g/dL) 6.6 Albumin (3.5 - 5.0 g/dL) 3.4 L Globulin (1.9 - 4.2 gm/dL) 3.2 Albumin/Globulin Ratio (1.1 - 2.2 %) 1.1 TSH &T3 &Free T4 Intrp (0.270 - 4.20 uIU/mL) 4.190 Prolactin (3.0 - 18.6 ng/mL) 51.9 H Coagulation PT (9.4 - 12.5 SEC) 11.2 INR (0.90 - 1.19) 1.03 APTT (25 - 37 SEC) 28 Hematology CBC w Diff NO MAN DIFF REQ WBC (4.8 - 10.8 /CUMM) 12.9 H RBC (4.20 - 5.40 /CUMM) 3.55 L Hgb (12.0 - 16.0 G/DL) 10.3 L Hct (37 - 47 %) 32.1 L MCV (81.0 - 99.0 FL) 90.3 MCH (27.0 - 31.0 PG) 29.0 MCHC (33.0 - 37.0 G/DL) 32.1 L RDW (11.5 - 14.5 %) 15.6 H Plt Count (130 - 400 /CUMM) 336 MPV (7.4 - 10.4 FL) 7.9 Gran % (42.2 - 75.2 %) 86.9 H Lymphocytes % (20.5 - 51.1 %) 6.7 L Monocytes % (1.7 - 9.3 %) 4.8 Eosinophils % (0 - 5 %) 1.3 Basophils % (0.0 - 2.0 %) 0.3 Absolute Granulocytes (1.4 - 6.5 /CUMM) 11.2 H Absolute Lymphocytes (1.2 - 3.4 /CUMM) 0.9 L Absolute Monocytes (0.10 - 0.60 /CUMM) 0.6 Absolute Eosinophils (0.0 - 0.7 /CUMM) 0.2 Absolute Basophils (0.0 - 0.2 /CUMM) 0 Imaging/Other Studies: CT Scanning Brain: No intracranial mass, hemorrhage, extra-axial collection, or midline shift is apparent. Chronic ischemic changes and volume loss are again noted. No pathologic intra-axial enhancement or regional oligemia is visualized. The paranasal sinuses remain well aerated. Cervical soft tissues and lung apices: The lung apices are better assessed on the patient's dedicated chest CT. An endotracheal tube is visible. Chest CTA: There is a classic 3 vessel configuration of the aortic arch. Proximal arch vessels are non-stenotic. The left vertebral artery is dominant. No significant ostial stenosis is visualized on either side. Neck CTA: Both vertebral arteries are widely patent throughout their extracranial cervical course. Both common and internal carotid arteries are normal in course and caliber. There is mild calcified atherosclerotic plaquing seen at both carotid bifurcations. Brain CTA: There is normal opacification of major intracranial arteries. No focal flow-limiting stenosis, discrete proximal large artery occlusion, or saccular intradural aneurysm is identified. Timing of the contrast allows assessment of the major dural venous sinuses, which all opacify normally. IMPRESSION: No significant cervicocerebral vascular stenosis or acute intracranial large artery occlusion. Assessment/Plan Assessment: Sudden unresponsiveness Seizure or seizure-like activity D Dx: CVA with Sz (initial CT, CTA OK) Arrhythmia with global cerebral hypoperfusion Currently no focal signs on exam and initial CT negative Recommendations: Continue Keppra empirically for the present EEG repeat CT brain late this afternoon (around 24 h) seeking developping signs of CVA or if extubated, MRI brain maintain ASA (SC) OK to stop aggrenox cardiology consultation pending Consult Acknowledgment - Thank you for your consult request.
--- NOTE | 2018-03-02 10:54 | Cons- Cardiology ---
General Information and HPI Consulting Request Date of Consult: 03/02/18 Requested By: Santiago Telles MD Reason for Consult: Elevated troponin Source of Information: old records Exam Limitations: unable to give history, clinical condition History of Present Illness: The patient was intubated at the time of my consultation and the HPI was obtained from the medical records. This is an 83-year-old female with a past medical history of bioprosthetic aortic valve in 2012, interstitial lung disease , hypertension, hyperlipidemia, prior TIA on Aggrenox, chronic renal insufficiency, diabetes, and dementia who presented to [facility] with a reported mechanical fall; the patient reported to EMS that she slipped in her kitchen but did not hit her head. She was noted to have evidence of fracture. There were no reports of her complaining of any chest pain, dyspnea, or palpitations. Apparently while she was being taken for CT scan that she had acute mental status change/unresponsiveness with some possible seizure-like activity. She was intubated for airway protection. Head CT was negative for intracranial hemorrhage or obvious CVA. Allergies/Medications Allergies: Coded Allergies: NO KNOWN ALLERGIES (04/30/16) Home Med List: Cholecalciferol (Vitamin D3) (Vitamin D) 5,000 UNIT TABLET 1 TAB PO DAILY SUPPLEMENT (Reported) Cyanocobalamin (Vitamin B-12) 1,000 MCG TABLET 1 TAB PO DAILY SUPPLEMENT ( Reported) Dipyridamole W/ Aspirin (Aggrenox 25 MG-200 MG Capsule) 25 MG-200 MG CPMP.12HR 1 CAP PO BID BLOOD THINNER (Reported) Docusate Sodium (Colace) 100 MG CAPSULE 1 CAP PO DAILY STOOL SOFTENER ( Reported) Donepezil HCl (Aricept) 10 MG TABLET 1 TAB PO QPM DEMENTIA (Reported) Doxycycline Hyclate 50 MG CAPSULE 1 CAP PO DAILY ABX (Reported) Escitalopram Oxalate (Lexapro) 10 MG TABLET 1 TAB PO DAILY ANXIETY (Reported) Ferrous Sulfate 325 MG (65 MG IRON) TABLET 1 TAB PO DAILY SUPPLEMENT ( Reported) Insulin Aspart (Novolog) 100 UNIT/ML VIAL 4 UNITS SC QAM DM (Reported) Insulin Aspart (Novolog) 100 UNIT/ML VIAL 8 UNITS SC DAILY DM (Reported) Insulin Detemir (Levemir) 100 UNIT/ML VIAL 6 UNITS SC QAM DM (Reported) Insulin Detemir (Levemir) 100 UNIT/ML VIAL 4 UNITS SC QPM DM (Reported) Losartan Potassium 50 MG TABLET 1 TAB PO DAILY BP (Reported) Meloxicam 7.5 MG TABLET 1 TAB PO DAILY PAIN/INFLAMMATION (Reported) Metoprolol Succ XL (Toprol XL) 25 MG TAB 1 TAB PO DAILY HTN (Reported) Rosuvastatin Calcium (Crestor) 20 MG TABLET 1 TAB PO DAILY CHOLESTEROL ( Reported) Current Medications: Current Medications Sig/Faraz Start time Last Medication Dose Route Stop Time Status Admin Acetaminophen 0 .STK-MED ONE 03/01 1909 DC IV Acetaminophen 1,000 MG ONCE ONE 03/01 190 DC 03/01 N/A 1 UNIT IV 03/01 191 1931 Aspirin 81 MG DAILY / 1000 DC 03/02 PO 0958 Atorvastatin Calcium 80 MG 1700 03/02 1700 AC PO Dextrose/Sodium 1,000 ML Q13H 03/02 0215 AC 03/02 Chloride IV 0224 Dipyridamole/Aspirin 1 CAP BID 03/02 1000 CAN PO Doxycycline Hyclate 50 MG DAILY 03/02 1000 CAN PO Escitalopram Oxalate 10 MG DAILY / 1000 AC 04/ PO 0958 Etomidate 20 MG ONCE ONE 03/01 2015 DC 03/01 IV 03/01 2016 210 Fentanyl Citrate 1,000 MCG Q24H 03/02 0200 AC 04/ Dextrose/Water 250 ML IV 0215 Heparin Sodium 25,000 UNIT Q24H / 0600 CAN (Porcine) IV Sodium Chloride 500 ML Insulin Human Regular 0 TIDAC/HS 03/02 0800 DC SC Insulin Human Regular 0 Q6 03/02 0600 AC 03/02 SC 0635 Levetiracetam 1,000 MG Q12 03/02 1000 CAN N/A 1 UNIT IV Levetiracetam 750 MG Q12 03/02 1000 AC 04 Sodium Chloride 100 ML IV 0958 Levetiracetam 500 MG ONCE ONE 03/02 0200 DC 03/02 N/A 1 UNIT IV 03/02 0214 0229 Levetiracetam 500 MG STAT STA 03/02 0030 DC 03/02 N/A 1 UNIT IV 03/02 0044 0131 Levetiracetam 500 MG STAT STA 03/01 2136 DC N/A 1 UNIT IV 03/01 215 Lorazepam 2 MG ONE ONE 03/01 2230 DC IV 03/01 2231 Lorazepam 0 .STK-MED ONE 03/01 2107 DC .ROUTE Lorazepam 2 MG ONE ONE 03/01 2100 DC 03/01 IV 03/01 Lorazepam 0 .STK-MED ONE 03/01 1953 DC .ROUTE Morphine Sulfate 0 .STK-MED ONE 03/01 1932 DC .ROUTE Morphine Sulfate 2 MG ONCE ONE 03/01 1930 DC 03/01 IV 03/01 Naloxone HCl 1 MG ONCE ONE 03/01 2000 DC 03/01 IV 03/01 Naloxone HCl 0 .STK-MED ONE 03/01 2000 DC .ROUTE Pantoprazole Sodium 40 MG DAILY 03/02 1000 AC 03/02 IV 09 Sodium Chloride 1,000 ML BOLUS ONE 03/01 2015 DC 03/01 IV 03/01 Review of Systems Review of Systems: Unable to obtain as the patient is intubated/sedated Past History Travel History Traveled to [place] past 21 day No Medical History Neurological: NONE EENT: NONE Cardiovascular: BRADYCARDIA, HTN Respiratory: LUNG SCARRING Gastrointestinal: DIVERTIC Hepatic: NONE Renal: NONE Musculoskeletal: NONE Psychiatric: NONE Endocrine: TYPE 2 DIABETES Blood Disorders: NONE Cancer(s): NONE [employer]ER/Reproductive: 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 Home Services at Home: None Smoking Status: Never Smoked (second hand exposure) ETOH Use: unknown Functional Ability ADLs Independent: dressing, eating, toileting, bathing. Ambulation: walker IADLs Needs Assist: finances, medication admin. Exam & Diagnostic Data Vital Signs and I&O Vital Signs Date Time Temp Pulse Resp B/P B/P Pulse O2 O2 Flow FiO2 Mean Ox Delivery Rate 03/02 08 28 03/02 08 97 Ventilator 28% 03/02 08 97.1 52 14 148/68 97 Ventilator 28% 03/02 0601 28 03/02 0400 97 Ventilator 28% 03/02 0340 28 03/02 0113 99 Ventilator 28% 03/02 0043 99 Ventilator 28% 03/02 0036 97.6 48 16 180/90 99 Ventilator 28% 03/02 0005 28 03/01 2305 43 14 178/76 10 Ventilator 28% 03/01 2235 42 14 168/73 99 Ventilator 28% 03/01 2231 28 03/01 2205 44 16 135/61 99 Ventilator 30% 03/01 2135 42 16 124/62 100 Ventilator 30% 03/01 2105 48 16 145/63 99 Ventilator 30% 03/01 2052 98.1 50 16 171/73 100 Ventilator 30% 03/01 2015 30 03/01 2008 64 16 198/82 100 Ventilator 30% 03/01 2001 64 18 188/77 100 10L 03/01 1955 66 8 207/87 100 10L 03/01 1857 96.9 47 17 165/73 98 Room Air Intake & Output 03/02 0803/02 0000 03/01 0000 Intake Total 538 Output Total 740 50 Balance -202 -50 Intake, IV 538 Number 1 Bowel Movements Output, 50 Gastric Drainage Output, Urine 740 Physical Exam: General: Intubated Eyes: No obvious scleral icterus. HEENT: No jugular venous distention or abnormal jugular venous pulsations. Cardiovascular: Normal intensity S1/S2. Regular, 1 out of 6 systolic murmur Respiratory: No rales or rhonchi Abdomen: Soft, nontender with no guarding or rebound tenderness. Musculoskeletal: No clubbing or cyanosis noted; no edema Skin: Warm Neurologic: Sedated Labs/Gucci Results: Laboratory Tests 03/02 03/02 1000 0400 Chemistry Sodium (137 - 145 mmol/L) 135 L Potassium (3.5 - 5.1 mmol/L) 4.6 Chloride (98 - 107 mmol/L) 105 Carbon Dioxide (22 - 30 mmol/L) 21 L Anion Gap (5 - 16) 9 BUN (7 - 17 mg/dL) 31 H Creatinine (0.5 - 1.0 mg/dL) 1.4 H Estimated GFR (>60 ml/min) 36 L Glucose (65 - 99 mg/dL) 160 H Calcium (8.4 - 10.2 mg/dL) 8.2 L Phosphorus (2.5 - 4.5 mg/dL) 5.0 H Magnesium (1.6 - 2.3 mg/dL) 1.9 Total Bilirubin (0.2 - 1.3 mg/dL) 0.4 AST (14 - 36 U/L) 20 ALT (9 - 52 U/L) 17 Troponin I (< 0.11 ng/ml) Pending 0.17 *H Albumin (3.5 - 5.0 g/dL) 2.8 L Hematology CBC w Diff MAN DIFF ORDERED WBC (4.8 - 10.8 /CUMM) 18.8 H RBC (4.20 - 5.40 /CUMM) 3.03 L Hgb (12.0 - 16.0 G/DL) 8.9 L Hct (37 - 47 %) 27.2 L MCV (81.0 - 99.0 FL) 89.8 MCH (27.0 - 31.0 PG) 29.5 MCHC (33.0 - 37.0 G/DL) 32.8 L RDW (11.5 - 14.5 %) 15.7 H Plt Count (130 - 400 /CUMM) 265 MPV (7.4 - 10.4 FL) 8.3 Gran % (42.2 - 75.2 %) 89.6 H Lymphocytes % (20.5 - 51.1 %) 4.1 L Monocytes % (1.7 - 9.3 %) 6.3 Eosinophils % (0 - 5 %) 0 Basophils % (0.0 - 2.0 %) 0 Absolute Granulocytes (1.4 - 6.5 /CUMM) 16.8 H Segmented Neutrophils (42.2 - 75.2 %) 80 H Band Neutrophils (0.0 - 5.0 %) 10 H Absolute Lymphocytes (1.2 - 3.4 /CUMM) 0.8 L Lymphocytes (20.5 - 51.1 %) 5 L Monocytes (1.7 - 9.3 %) 5 Absolute Monocytes (0.10 - 0.60 /CUMM) 1.2 H Absolute Eosinophils (0.0 - 0.7 /CUMM) 0 Absolute Basophils (0.0 - 0.2 /CUMM) 0 Platelet Estimate (ADEQUATE) ADEQUATE Hypochromic-Microcytic 1+ Anisocytosis 1+ Kenneth Cells FEW Elliptocytes 1+ 03/02 03/01 0320 2200 Blood Gas pH (7.35 - 7.45 PH) 7.39 7.40 pCO2 (35 - 45 TORR) 32 L 29 L pO2 (80 - 100 TORR) 108 H 121 H HCO3 (21 - 28 MEQ/L) 19 L 17.2 L ABG O2 Sat (Measured) (>96.0 %) 97.0 98.0 P-50 (Temp Corrected) Y Carboxyhemoglobin (1.5 - 5.0 %) 0.3 L 0.2 L O2 Concentration % 28% 30 Temperature (97.0 - 100.0 FARH) 97.6 Respiration Rate (BPM) 14 16 O2 Delivery Method ESPRIT VENT Vent Mode AC AC Expiratory Pressure (CMH2O/P) 5 5 Tidal Volume (CC) 500 500 Pressure Support (CMH2O/P) 0 Miscellaneous Phlebotomy Draw Site RIGHT RADIAL RIGHT RADIAL 03/019 Urines Urinalysis MOD H Urine Color (YEL,AMB,STR) YEL Urine Clarity (CLEAR) CLEAR Urine pH (5.0 - 8.0) 6.0 Ur Specific [place] (1.001 - 1.035) 1.025 Urine Protein (NEG,<30 MG/DL) >=300 H Urine Ketones (NEG) NEG Urine Nitrite (NEG) NEG Urine Bilirubin (NEG) NEG Urine Urobilinogen (0.1 - 1.0 EU/dl) 0.2 Ur Leukocyte Esterase (NEG) NEG Ur Microscopic SEDIMENT EXAMINED Urine RBC (0 - 5 /HPF) 1-3 Urine WBC (0 - 2 /HPF) 1-3 H Ur Epithelial Cells (NONE,FEW) FEW Urine Bacteria (NEG/NONE) FEW H Hyaline Casts (0/LPF) 1-3 H Granular Casts (NONE /LPF) RARE H Urine Mucus (FEW,NONE) FEW Urine Hemoglobin (NEG) SMALL H Urine Glucose (N MG/DL) 100 H 03/01 1917 Chemistry Sodium (137 - 145 mmol/L) 137 Potassium (3.5 - 5.1 mmol/L) 5.2 H Chloride (98 - 107 mmol/L) 102 Carbon Dioxide (22 - 30 mmol/L) 23 Anion Gap (5 - 16) 12 BUN (7 - 17 mg/dL) 34 H Creatinine (0.5 - 1.0 mg/dL) 1.5 H Estimated GFR (>60 ml/min) 33 L BUN/Creatinine Ratio (7 - 25 %) 22.7 Glucose (65 - 99 mg/dL) 165 H Calcium (8.4 - 10.2 mg/dL) 9.0 Total Bilirubin (0.2 - 1.3 mg/dL) 0.4 AST (14 - 36 U/L) 22 ALT (9 - 52 U/L) 19 Alkaline Phosphatase (<127 U/L) 92 Troponin I (< 0.11 ng/ml) 0.10 Total Protein (6.3 - 8.2 g/dL) 6.6 Albumin (3.5 - 5.0 g/dL) 3.4 L Globulin (1.9 - 4.2 gm/dL) 3.2 Albumin/Globulin Ratio (1.1 - 2.2 %) 1.1 TSH &T3 &Free T4 Intrp (0.270 - 4.20 uIU/mL) 4.190 Prolactin (3.0 - 18.6 ng/mL) 51.9 H Coagulation PT (9.4 - 12.5 SEC) 11.2 INR (0.90 - 1.19) 1.03 APTT (25 - 37 SEC) 28 Hematology CBC w Diff NO MAN DIFF REQ WBC (4.8 - 10.8 /CUMM) 12.9 H RBC (4.20 - 5.40 /CUMM) 3.55 L Hgb (12.0 - 16.0 G/DL) 10.3 L Hct (37 - 47 %) 32.1 L MCV (81.0 - 99.0 FL) 90.3 MCH (27.0 - 31.0 PG) 29.0 MCHC (33.0 - 37.0 G/DL) 32.1 L RDW (11.5 - 14.5 %) 15.6 H Plt Count (130 - 400 /CUMM) 336 MPV (7.4 - 10.4 FL) 7.9 Gran % (42.2 - 75.2 %) 86.9 H Lymphocytes % (20.5 - 51.1 %) 6.7 L Monocytes % (1.7 - 9.3 %) 4.8 Eosinophils % (0 - 5 %) 1.3 Basophils % (0.0 - 2.0 %) 0.3 Absolute Granulocytes (1.4 - 6.5 /CUMM) 11.2 H Absolute Lymphocytes (1.2 - 3.4 /CUMM) 0.9 L Absolute Monocytes (0.10 - 0.60 /CUMM) 0.6 Absolute Eosinophils (0.0 - 0.7 /CUMM) 0.2 Absolute Basophils (0.0 - 0.2 /CUMM) 0 Diagnostic Data EKG Results Tracing was personally reviewed and shows sinus bradycardia with possible left ventricular hypertrophy CXR Results 1. Endotracheal tube about 6 cm above ld. 2. Nasogastric tube in stomach. 3. Increasing hazy density left lung base, possible left basilar infiltrate/atelectasis. Other Results Telemetry tracings were personally reviewed and shows sinus rhythm Assessment/Plan Assessment/Plan 1. Status post mechanical fall with hip fracture and subsequent unresponsiveness/altered mental status requiring intubation for airway protection 2. Minimal troponin elevation unlikely due to acute coronary syndrome 3. History of bio AVR in 2012 4. History of TIA on Aggrenox as outpatient 5. Hypertension/hyperlipidemia/diabetes mellitus 6. Sinus bradycardia 7. History of interstitial lung disease 8. Chronic renal insufficiency Etiology of the patient's acute mental status change is not entirely clear. Her low level sinus bradycardia is not new and unlikely to be contributing but would hold the beta-tonya. Recommend following the troponins until they begin to decrease. Obtain echocardiogram. Neurology input reviewed; unclear if this may have been a CVA or seizure? She is going to be continued on aspirin therapy and statin therapy. She has been started on Keppra. No evidence of congestive heart failure at this time. Dayday Peña MD [facility] Consult Acknowledgment - Thank you for your consult request.
[2018-03-02 16:00] VITALS: BP 150/70
--- NOTE | 2018-03-02 20:39 | ECHOCARDIOGRAM REPORT ---
FEMI AREVALO Age: 83 : 1935 Gender: F Exam Date: 03/02/2018 14:54 Exam Location: Outpatient Ht (in): 62 Wt (lb): 165 BSA: 1.84 BP: 134 / 68 Ordering Physician: Alma Santamaria MD Referring Physician: Romero Peña M.D. Technologist: Olivia Mendoza RDCS Room Number: Indications: STROKE Rhythm: Sinus Technical Quality: fair FINDINGS Left Ventricle Normal size left ventricle. Left ventricular wall thickness moderately increased. Normal left ventricular ejection fraction estimated at 60-65%. Right Ventricle Normal right ventricular size and function. Right Atrium Normal right atrial size. Left Atrium Moderate left atrial dilatation. Mitral Valve Moderate mitral annular calcification. Moderate subvalvular mitral calcification. [id number] mitral stenosis. Aortic Valve Normally functioning prosthetic aortic valve. Bioprosthetic aortic valve. Tricuspid Valve Tricuspid valve is normal in structure and function. Mild tricuspid regurgitation. Right ventricular systolic pressure estimated to be elevated at 45 mmHg. Pulmonic Valve Pulmonic valve not well visualized, grossly normal. Pericardium No pericardial effusion. Great Vessels Mildly dilated proximal ascending aorta (tube). CONCLUSIONS Normal left ventricular systolic function with modertae Left ventricular hypertrophy. Biatrial enlargement. Normally functioning Bioprosthetic Aortic valve. Mild to moderate Mitral stenosis. Moderate Pulmonary hyperttension. Krishna Lane M.D. (Electronically Signed) Final Date: 02 March 2018 20:38 MEASUREMENTS (Male / Female) Normal Values 2D ECHO LV Diastolic Diameter PLAX 3.6 cm 4.2 - 5.9 / 3.9 - 5.3 cm LV Systolic Diameter PLAX 2.3 cm 2.1 - 4.0 cm LV Fractional Shortening PLAX 36.1 % 25 - 46 % LV Ejection Fraction 2D Teich 66.7 % IVS Diastolic Thickness 1.8 cm LVPW Diastolic Thickness 1.6 cm LV Relative Wall Thickness 0.9 RV Internal Dim ED PLAX 3.4 cm 1.9 - 3.8 cm LVOT Diameter 1.7 cm Aortic Root Diameter 3.7 cm LA Systolic Diameter LX 5.2 cm 3.0 - 4.0 / 2.7 - 3.8 cm LA Volume 62.0 cm 18 - 58 / 22 - 52 cm Ascending Aorta Diameter 4.0 cm DOPPLER AV Peak Velocity 231.0 cm/s AV Peak Gradient 21.3 mmHg AV Mean Velocity 167.0 cm/s AV Mean Gradient 13.0 mmHg AV Velocity Time Integral 56.8 cm LVOT Peak Velocity 141.0 cm/s LVOT Peak Gradient 8.0 mmHg LVOT Mean Velocity 94.0 cm/s LVOT Mean Gradient 4.0 mmHg LVOT Velocity Time Integral 29.6 cm LVOT Stroke Volume 67.2 cm AV Area Cont Eq vti 1.2 cm AV Area Cont Eq pk 1.4 cm MV Peak Velocity 160.5 cm/s MV Peak Gradient 10.3 mmHg MV Mean Velocity 92.2 cm/s MV Mean Gradient 4.0 mmHg Mitral E Point Velocity 138.0 cm/s Mitral A Point Velocity 151.0 cm/s Mitral E to A Ratio 0.9 MV PHT Velocity 137.5 cm/s MV Deceleration [place] 245.0 cm/s MV Pressure Half Time 168.4 ms MV Area PHT 1.3 cm MV Deceleration Time 562.0 ms TR Peak Velocity 311.0 cm/s TR Peak Gradient 38.7 mmHg Right Atrial Pressure 5.0 mmHg Pulmonary Artery Systolic Pressu 43.7 mmHg Right Ventricular Systolic Press 43.7 mmHg PV Peak Velocity 136.0 cm/s PV Peak Gradient 7.4 mmHg PV Mean Velocity 92.5 cm/s PV Mean Gradient 4.0 mmHg PV Velocity Time Integral 28.8 cm LV E' Lateral Velocity 4.8 cm/s Mitral E to LV E' Lateral Ratio 28.9 LV E' Septal Velocity 3.4 cm/s Mitral E to LV E' Septal Ratio 41.2
--- NOTE | 2018-03-02 20:56 | CT SCAN REPORT ---
EXAMINATION: CT HEAD WITHOUT CONTRAST CLINICAL INFORMATION: Seizure-like activity. Trauma. Fall. COMPARISON: 03/01/2018. TECHNIQUE: Contiguous axial images of the brain were obtained without IV contrast. DLP: 621 mGy-cm. FINDINGS: There are no pathologic extra-axial fluid collections. The lateral, third, fourth ventricles are prominent, though stable, age-appropriate and concordant with the appearance of the sulci. There is no evidence for acute intraparenchymal hemorrhage or infarct. And there is periventricular low-attenuation present indicative of small vessel disease. There is neither mass nor mass effect. There is no shift of midline structures. The paranasal sinuses and mastoid air cells are clear. There are no osseous lesions. IMPRESSION: No evidence for acute intracranial injury. Stable age-appropriate appearance of the brain.
[2018-03-03] VITALS: BP 152/72
[2018-03-03 04:47] LABS: ABSOLUTE BASOPHIL COUNT 0.1 /CUMM (0.0-0.2); ABSOLUTE EOSINOPHIL COUNT 0.1 /CUMM (0.0-0.7); ABSOLUTE GRANULOCYTE CT 14.1 /CUMM (1.4-6.5); ABSOLUTE LYMPH COUNT 1.5 /CUMM (1.2-3.4); ABSOLUTE MONOCYTE COUNT 1.5 /CUMM (0.10-0.60); BASOPHIL % 0.5 % (0.0-2.0); EOSINOPHIL % 0.5 % (0-5); HEMATOCRIT 25.7 % (37-47); MEAN CORPUSCULAR HGB CONC 33.1 G/DL (33.0-37.0); MEAN CORPUSCULAR VOLUME 90.7 FL (81.0-99.0); MEAN PLATELET VOLUME 8.8 FL (7.4-10.4); PLATELET COUNT 219 /CUMM (130-400); RBC DISTRIBUTION WIDTH 15.4 % (11.5-14.5); RED BLOOD CELL CT 2.83 /CUMM (4.20-5.40); WHITE BLOOD CELL COUNT 17.2 /CUMM (4.8-10.8)
--- NOTE | 2018-03-03 06:13 | RADIOLOGY REPORT ---
EXAMINATION: XR PORTABLE CHEST CLINICAL INFORMATION: Respiratory failure. Intubation. COMPARISON: Chest x-ray March 02, 2018. TECHNIQUE: Portable frontal view of the chest was obtained. 5:48 AM FINDINGS: Status post median sternotomy. Status post cardiac valve repair. Heart size enlarged. There are calcifications of aortic arch. Endotracheal tube catheter approximately 4 cm above the ld. Nasogastric tube passes into the stomach. No pulmonary vascular congestion. There is improved aeration to left lung base since prior chest x-ray March 02, 2018. Lungs appear to be clear. No acute infiltrate or atelectasis. IMPRESSION: 1. Endotracheal tube 4 cm above ld. 2. Nasogastric tube in stomach. 3. Improved aeration at left lung base since prior chest x-ray. No acute infiltrate.
--- NOTE | 2018-03-03 07:43 | PN- Resident CRCU ---
Rosalio SU,Alma 03/03/18 0743: Subjective HPI/CRCU Issues: Overnight events: Patient is intubated and sedated on IV fentanyl drip Patient is alert and oriented to person and place but not time. Patient follows commands. Patient reports mild left-sided hip pain however no other complaints at this time. Interview limited due to patient's current clinical condition as she is intubated. Vitals: Tmax: 98.5, heart rate 50s to 60s, sinus bradycardia, sinus rhythm, respiration rate 14-18, blood pressure 132/58, saturating at 96-99% on mechanical ventilation at a tidal volume of 500, FiO2 of 28%, respiration rate of 15, PEEP of 5 Total intake:3115, output:1575 Patient is currently on D5 half normal saline running at 75 mL per hour WBC 17.2 with 82% granulocytes and 0 bands, H&H 8.5 and 25.7, platelets 219 Sodium 134, potassium 4.2, chloride 105, bicarbonate 19, BUN 25 and 1.3, glucose 167, calcium 7.8, phosphorus 4.1, magnesium 1.8, LFTs within normal limits, albumin 2.5 Chest x-ray: Endotracheal tube 4 centimeters above ld, NG tube in stomach, improved aeration at left lung base since prior chest x-ray. No acute infiltrate seen. Objective Vital Signs & I&O Last 8 Hrs of Vitals and I&O: Vital Signs Date Time Temp Pulse Resp B/P B/P Pulse O2 O2 Flow FiO2 Mean Ox Delivery Rate 03/03 0835 28 03/03 0552 28 03/03 0400 97 Ventilator 28% 03/03 0302 28 03/03 0043 28 04/ 0000 95 Ventilator 28% 03/03 0000 98.4 57 14 152/72 95 Ventilator 28% 03/02 2216 28 03/02 2010 28 / 2000 97 Ventilator 28% 03/02 1650 28 04 1600 97 Ventilator 28% 03/02 1600 98.5 56 14 150/70 97 Ventilator 28% 04/ 1430 28 04/ 1200 97 Ventilator 28% 03/02 1110 28 Intake & Output 03/03 1600 03/03 0800 04/ 0000 Intake Total 774.3 922.9 Output Total 400 275 Balance 374.3 647.9 Intake, IV 774.3 862.9 Intake, Oral 0 0 Intake, Other 60 Number 0 0 Bowel Movements Output, 150 Gastric Drainage Output, Urine 250 275 Patient 173 lb Weight Weight Bed scale Measurement Method Exam General Appearance: well developed/nourished, no apparent distress, sedated, intubated, drowsy but arousable Head: atraumatic, normal appearance Respiratory: normal breath sounds, chest non-tender, no respiratory distress, lungs clear Cardiovascular: regular rate/rhythm Gastrointestinal: normal bowel sounds, soft, non-tender Extremities: left sided hip pain Cranial Nerves: normal hearing, normal speech, PERRL, patient is following all commands, moving upper and lower extremities, limited neuro exam due to hip pain from fracture Current Medications: Current Medications Sig/Faraz Start time Last Medication Dose Route Stop Time Status Admin Aspirin 81 MG DAILY 03/02 1915 AC 03/03 PO 1059 Atorvastatin Calcium 80 MG 1700 / 1700 AC / PO 1754 Dextrose/Sodium 1,000 ML Q13H / 0215 AC 04/ Chloride IV 0800 Escitalopram Oxalate 10 MG DAILY 03/02 1000 AC / PO 1059 Fentanyl Citrate 1,000 MCG Q10H / 1800 AC Dextrose/Water 250 ML IV Fentanyl Citrate 1,000 MCG Q12H / 2000 AC / Dextrose/Water 250 ML IV / 1759 0800 Fentanyl Citrate 1,000 MCG Q24H / 0200 DC / Dextrose/Water 250 ML IV 03/02 2000 0215 Insulin Human Regular 0 Q6 / 2359 AC / SC 1124 Insulin Human Regular 0 Q6 / 0600 [place] 03/02 [place] 1841 Levetiracetam 750 MG Q12 / 1000 AC 04/03 Sodium Chloride 100 ML IV 1059 Pantoprazole Sodium 40 MG DAILY / 1000 AC 04/ IV 1059 Impression/Plan Impression/Problem List Impression: Patient is an 83-year-old female with past medical history of coronary artery disease, lacunar infarct in 2012 (on Aggrenox), diabetes ([id number]) , hypertension, diverticulitis, interstitial lung disease, chronic kidney disease stage III, bradycardia and dementia presenting this admission with a left intertrochanteric comminuted displaced femur fracture seen on imaging status post apparent mechanical fall. While patient was getting imaging done she had a seizure like activity vs stroke, had bradycardia to the 20s, became unresponsive with GCS fo 3 requiring intubation to protect her airway. Patient was started on keppra for seizure prophylaxis, neurology was contacted- no TPA was given. Patient was admitted to the ICU for management of the following: Respiratory: Currently intubated due to AMS to protect airway - continue on mechanical ventilation - repeat ABG and CXR in AM - [facility] Infectious: Leukocytosis - likely reactive secondary to fracture and pain - as patient is afebrile with stable vital signs and improving WBC count, with no infiltrate seen on chest xray today, will continue to monitor off antibiotics - repeat CXR tomorrow Cardiac: Bradycardia First degree AV block - cardiology consulted - beta tonya held - continue to monitor on telemetry Elevated Troponin - likely Type II MS: demand ischemia in setting of recent fracture. EKG shows no significant ST or T wave changes. Troponin peaked to 0.17. ECHO on 03/02 shows LVEF of 60 to 65% with no wall motion abnormalities with a normal functioning bioprosthetic aortic valve and pulmonary htn. - cardiology consulted - beta tonya held in setting of bradycardia - continue aspirin and statin History of CAD and HTN - continue losartan - continue statin Heme: Acute on chronic anemia - History of iron deficiency anemia, on iron supplements. Acute drop in the setting of femur fracture - continue to monitor h/h - continue iron supplements Metabolic: Diabetes - Accuchecks - Insulin SS Hyponatremic Likely secondary to fluids, however hyponatremia is seen in 1 to 10% of people on fentanyl - repeat BEP this evening - will change fluids based on repeat Na level Ailmentary: NPO w/ D51/2 NS @ 75 cc/hr Neurologic: AMS 2/2 ?Stroke vs ?Seizure vs ?global hypoperfusion 2/2 bradycardia It is unclear if the patient had a stroke on day of admission or a seizure or if her seizure like activity was precipitated by a stroke. CTA and head CT were negative. Patient's prolactin was elevated. Patient also had severe bradycardia which may have lead to patient's unresponsiveness as well. Neurology was consulted. No tPA was given. Patient today is intubated with fentanyl drip today. Patient is responsive, following commands with no focal neurological deficits seen. Per neurology low suspicion of stroke however still recommend giving aspirin. Patient's repeat CT on 03/02 showed no acute intracranial pathology with stable age appropriate appearance. EEG was done showing abnormal/ moderate generalized slowing of conduction indicating diffuse encephalopathy but no focal/epileptiform waveform patterns. Patient is still on keppra for seizure prophylaxis. Spoke to neurology this morning. Neurology is okay with patient having surgery today as there is low suspicion of stroke. - Keppra for seizure prophylaxis - Aspirin and Statin for suspected stroke - Aggrenox held - as it cannot be crushed. Ok'ed by neurology. - Cardiology on board. - Neurology on board. - Neurochecks - Aspiration precautions History of dementia - Patient's son is POA Nephrology: CKD stage III - baseline creatinine of 1.3 - Continue to monitor - Strict I/O - Avoid nephrotoxic agents - IV fluid hydration Ortho: Left communuted and displaced femur fracture - Ortho is on board - Per cardiology patient is at high risk given her risk factors however at this point patient is medically optimized for surgery. Per neurology patient is okay for surgery in setting of presumed seizure currently on antiepileptic medication and with no focal neurological finding with low suspicion of stroke with two head CTs with no acute intracranial pathology or indications of evolving stroke. - AP and lateral hip xrays ordered per request of ortho - show femur fracture - Son has been updated by ICU team and ortho in regards to surgery and current medical condition - Patient will likely go for surgery this evening DVT PPx: ALPs GI PPx: IV Protonix Problem List: 1. Fracture of left hip 2. Encephalopathy 3. Leukocytosis 4. Anemia 5. Hyponatremia Pain Ratin Pain Location: left hip Tomorrow's Labs & Rationales: cbc- anemia, leukocytosis icu bundle Plan DVT/Prophylaxis: Abran Sarabia MD 03/03/18 1118: Attending MD Review Statement Attending Sign Off Attending Cosign Statement: I have: examined this patient, reviewed avalbl EMR data, personally reviewd images, discussd w/resident/PA/COMMUNITY AMBASSADOR, discussed mgmt plan w/josé miguel, discussed mgmt plan w/CM, discussed mgmt plan w/pt, agreed w/resident/PA/COMMUNITY AMBASSADOR, amended to note. Other Findings: Abran Whatley M.D. have examined this patient, reviewed available EMR data, personally reviewed images, discussed with resident/PA/COMMUNITY AMBASSADOR, discussed management plan with housestaff and nursing staff, discussed managment plan all of healthcare providers, discussed management plan with patient and/or family, agreed with resident/PA/COMMUNITY AMBASSADOR. The past history and parts of the chart have been autopopulated. Impression 83-year-old woman * Intubated for airway protection with a differential diagnosis of CVA versus seizure * femur fracture Plan -Neurology and cardiology consultations appreciated -f/u ortho plan, if okay with consultants, should remain intubated if anticipating surgery today/tomorrow -cont mechanical ventilation -keppra for now DVT prophylaxis at all times TTS 35 min
[2018-03-03 08:00] VITALS: BP 156/64
--- NOTE | 2018-03-03 10:37 | PN- Cardiology ---
Subjective Subjective: The patient is awake, alert, remains intubated, answers questions appropriately The events of the last 24 hours as well as telemetry were reviewed. Review of Systems: The review of systems is negative for chest pains, palpitations nor lightheadedness. The remainder of the 14 point review of systems is noncontributory with the exception of above. Objective Vital Signs and I&Os Vital Signs Date Time Temp Pulse Resp B/P B/P Pulse O2 O2 Flow FiO2 Mean Ox Delivery Rate 03/03 0835 28 03/03 0552 28 03/03 0400 97 Ventilator 28% 03/03 0302 28 03/03 0043 28 03/03 0000 95 Ventilator 28% 03/03 0000 98.4 57 14 152/72 95 Ventilator 28% 03/02 2216 28 03/02 2000 97 Ventilator 28% 03/02 1650 28 03/02 1600 97 Ventilator 28% 03/02 1600 98.5 56 14 150/70 97 Ventilator 28% 03/02 1430 28 03/02 1200 97 Ventilator 28% 03/02 1110 28 Intake & Output 03/03 0800 / 0000 04/ 1600 03/02 0800 03/02 0000 Intake Total 774.3 922.9 880 538 Output Total 400 275 250 740 50 Balance 374.3 647.9 630 -202 -50 Intake, IV 774.3 862.9 820 538 Intake, Oral 0 0 0 Intake, Other 60 60 Number 0 0 0 1 Bowel Movements Output, 150 50 Gastric Drainage Output, Urine 250 275 250 740 Patient 173 lb 165 lb Weight Weight Bed scale Measurement Method Physical Exam: General: Nontoxic, no apparent distress. HEENT: Sclera and conjunctiva within normal limits, without xanthelasmas. Neck: Carotids 2+ without bruits. Respiratory: Clear to auscultation, air movement is good, without accessory respiratory muscle use. Heart: Regular rate and rhythm, without murmurs, without JVD. Abdomen: Soft, nontender, no masses, normoactive bowel sounds. Extremities: Without clubbing, cyanosis, without edema. Neuro: Nonfocal exam, strength, 5 out of 5 Skin: Within normal limits without lesions. Psych: Mood and affect: Limited evaluation secondary to patient being intubated Current Medications: Current Medications Sig/Faraz Start time Last Medication Dose Route Stop Time Status Admin Aspirin 81 MG DAILY 03/02 1915 AC 03/02 PO 1957 Atorvastatin Calcium 80 MG 1700 03/02 1700 AC 03/02 PO 1754 Dextrose/Sodium 1,000 ML Q13H 03/02 0215 AC 03/02 Chloride IV 1841 Escitalopram Oxalate 10 MG DAILY 03/02 1000 AC 03/02 PO 0958 Fentanyl Citrate 1,000 MCG Q10H 03/03 1800 AC Dextrose/Water 250 ML IV Fentanyl Citrate 1,000 MCG Q12H 03/02 2000 AC 03/02 Dextrose/Water 250 ML IV 03/03 175 2100 Fentanyl Citrate 1,000 MCG Q24H 03/02 0200 DC 03/02 Dextrose/Water 250 ML IV 03/02 2000 021 Insulin Human Regular 0 Q6 03/02 2359 AC 03/03 SC 0621 Insulin Human Regular 0 Q6 03/02 0600 DC 03/02 SC 1841 Levetiracetam 750 MG Q12 03/02 1000 AC 03/02 Sodium Chloride 100 ML IV 2147 Pantoprazole Sodium 40 MG DAILY 03/02 1000 AC 03/02 IV 0958 Results Last 48 Hrs of Labs/Mics: Laboratory Tests 03/03/18 0600: pH 7.38, pCO2 35, pO2 117 H, HCO3 20 L, ABG O2 Sat (Measured) 98.0, P-50 (Temp Corrected) N, Carboxyhemoglobin 0.1 L, O2 Concentration % .28, Respiration Rate 14, O2 Delivery Method VENT, Vent Mode A/C, Expiratory Pressure 5, Tidal Volume 500, Phlebotomy Draw Site RIGHT RADIAL 03/03/18 0400: Anion Gap 9, Estimated GFR 39 L, Glucose 167 H, Calcium 7.8 L, Phosphorus 4.1 , Magnesium 1.8, Total Bilirubin 0.6, AST 24, ALT 19, Albumin 2.5 L, CBC w Diff NO MAN DIFF REQ, RBC 2.83 L, MCV 90.7, MCH 30.0, MCHC 33.1, RDW 15.4 H, MPV 8.8, Gran % 82.0 H, Lymphocytes % 8.5 L, Monocytes % 8.5, Eosinophils % 0.5, Basophils % 0.5, Absolute Granulocytes 14.1 H, Absolute Lymphocytes 1.5, Absolute Monocytes 1.5 H, Absolute Eosinophils 0.1, Absolute Basophils 0.1 03/02/18 1000: Troponin I 0.13 *H 03/02/18 0400: Anion Gap 9, Estimated GFR 36 L, Glucose 160 H, Calcium 8.2 L, Phosphorus 5.0 H, Magnesium 1.9, Total Bilirubin 0.4, AST 20, ALT 17, Troponin I 0.17 *H, Albumin 2.8 L, CBC w Diff MAN DIFF ORDERED, RBC 3.03 L, MCV 89.8, MCH 29.5, MCHC 32.8 L, RDW 15.7 H, MPV 8.3, Gran % 89.6 H, Lymphocytes % 4.1 L, Monocytes % 6.3, Eosinophils % 0, Basophils % 0, Absolute Granulocytes 16.8 H, Segmented Neutrophils 80 H, Band Neutrophils 10 H, Absolute Lymphocytes 0.8 L , Lymphocytes 5 L, Monocytes 5, Absolute Monocytes 1.2 H, Absolute Eosinophils 0, Absolute Basophils 0, Platelet Estimate ADEQUATE, Hypochromic-Microcytic 1+, Anisocytosis 1+, Kenneth Cells FEW, Elliptocytes 1+ 03/02/18 0320: pH 7.39, pCO2 32 L, pO2 108 H, HCO3 19 L, ABG O2 Sat (Measured) 97.0, P-50 ( Temp Corrected) Y, Carboxyhemoglobin 0.3 L, O2 Concentration % 28%, Temperature 97.6, Respiration Rate 14, O2 Delivery Method ESPRIT, Vent Mode AC, Expiratory Pressure 5, Tidal Volume 500, Phlebotomy Draw Site RIGHT RADIAL 03/01/18 2200: pH 7.40, pCO2 29 L, pO2 121 H, HCO3 17.2 L, ABG O2 Sat (Measured) 98.0, Carboxyhemoglobin 0.2 L, O2 Concentration % 30, Respiration Rate 16, O2 Delivery Method VENT, Vent Mode AC, Expiratory Pressure 5, Tidal Volume 500, Pressure Support 0, Phlebotomy Draw Site RIGHT RADIAL 03/01/18 2139: Urinalysis MOD H, Urine Color YEL, Urine Clarity CLEAR, Urine pH 6.0, Ur Specific [place] 1.025, Urine Protein >=300 H, Urine Ketones NEG, Urine Nitrite NEG, Urine Bilirubin NEG, Urine Urobilinogen 0.2, Ur Leukocyte Esterase NEG, Ur Microscopic SEDIMENT EXAMINED, Urine RBC 1-3, Urine WBC 1-3 H, Ur Epithelial Cells FEW, Urine Bacteria FEW H, Hyaline Casts 1-3 H, Granular Casts RARE H, Urine Mucus FEW, Urine Hemoglobin SMALL H, Urine Glucose 100 H 03/01/181916: Anion Gap 12, Estimated GFR 33 L, BUN/Creatinine Ratio 22.7, Glucose 165 H, Calcium 9.0, Total Bilirubin 0.4, AST 22, ALT 19, Alkaline Phosphatase 92, Troponin I 0.10, Total Protein 6.6, Albumin 3.4 L, Globulin 3.2, Albumin/ Globulin Ratio 1.1, TSH &T3 &Free T4 Intrp 4.190, Prolactin 51.9 H, PT 11.2, INR 1.03, APTT 28, CBC w Diff NO MAN DIFF REQ, RBC 3.55 L, MCV 90.3, MCH 29.0, MCHC 32.1 L, RDW 15.6 H, MPV 7.9, Gran % 86.9 H, Lymphocytes % 6.7 L, Monocytes % 4.8, Eosinophils % 1.3, Basophils % 0.3, Absolute Granulocytes 11.2 H, Absolute Lymphocytes 0.9 L, Absolute Monocytes 0.6, Absolute Eosinophils 0.2 , Absolute Basophils 0 Microbiology 03/02 15 UPPER RESP: Surveillance Culture - COMP 03/02 15 GI: Surveillance Culture - COMP Assessment/Plan Assessment/Plan 1. Status post mechanical fall with hip fracture and subsequent unresponsiveness/altered mental status requiring intubation for airway protection 2. Minimal troponin elevation unlikely due to acute coronary syndrome 3. History of bio AVR in 2012 4. History of TIA on Aggrenox as outpatient 5. Hypertension/hyperlipidemia/diabetes mellitus 6. Sinus bradycardia 7. History of interstitial lung disease 8. Chronic renal insufficiency Bioprosthetic aortic valve: Echocardiogram demonstrated preserved LV systolic function and normal functioning bioprosthetic aortic valve. Fall: The patient has a history of frequent falls, which have previously been attributed to mechanical etiologies, including potential mechanical etiology in her current presentation. However was questionable seizure activity as well, and neurology input has been reviewed and appreciated. Her beta tonya regimen has been held secondary to bradycardia which may as well have triggered a seizure. Hip fracture: The patient sustained a hip fracture with her current fall and will require operative repair of the same. She has had high risk for perioperative ischemic events given her history as well as increased mortality, especially in light of her recent elevated troponin isoenzymes (albeit unlikely secondary to an acute coronary syndrome). Her beta tonya regimen has been held secondary to bradycardia and I would not resume this preoperatively. No further cardiac testing however would be required preoperatively given the requirement of her upcoming surgery and known history. The patient is at elevated risk for perioperative congestive heart failure events given the finding of diastolic dysfunction. We will continue to track her volume status and attempt to maintain an overall euvolemic state. Continue telemetry? Yes
--- NOTE | 2018-03-03 12:20 | ELECTROENCEPHALOGRAM REPORT ---
Electroencephalogram Report Electroencephalogram Results Date of service: 03/02/18 Attending MD: Abran Alonso MD Field Spec: Marco Sheldon EEG Number: [id number] Test Utilizes: 10-20 system, 21 lead 18 channel digital recording Pertinent Hx/Physical/Neuro Findings/Clin Diagnosis: reduced reponsiveness, possible seizure Inpatient Medications: Current Medications Sig/Faraz Start time Last Medication Dose Route Stop Time Status Admin Aspirin 81 MG DAILY 03/02 1915 AC 04/ PO 1059 Atorvastatin Calcium 80 MG 1700 04/ 1700 AC 04/ PO 1754 Dextrose/Sodium 1,000 ML Q13H / 0215 AC 04/03 Chloride IV 0800 Escitalopram Oxalate 10 MG DAILY 04/ 1000 AC 04/ PO 1059 Fentanyl Citrate 1,000 MCG Q10H / 1800 AC Dextrose/Water 250 ML IV Fentanyl Citrate 1,000 MCG Q12H / 2000 AC 04/03 Dextrose/Water 250 ML IV / 1759 0800 Fentanyl Citrate 1,000 MCG Q24H / 0200 DC 04/ Dextrose/Water 250 ML IV 03/02 2000 0215 Insulin Human Regular 0 Q6 / 2359 AC 04/03 SC 1124 Insulin Human Regular 0 Q6 / 0600 DC 04/ SC 1841 Levetiracetam 750 MG Q12 04/ 1000 AC 04/03 Sodium Chloride 100 ML IV 1059 Pantoprazole Sodium 40 MG DAILY 04/ 1000 AC 04/03 IV 1059 Interpretation: The background is composed primarily of low amplitude generalized theta mixed with anterior beta frequencies and occasion irregular activity in the alpha range. There are no focal, lateralized or epileptiform abnormalities. Activation procedures could not be performed. Impression: Abnormal due to moderate generalized slowing consistent with a diffuse encephalopathy but without any focal or epileptiform features
--- NOTE | 2018-03-03 13:57 | RADIOLOGY REPORT ---
EXAMINATION: XR HIP, LEFT CLINICAL INFORMATION: Femur fracture on abdomen/pelvis CT COMPARISON: CT abdomen/pelvis 03/01/2018 TECHNIQUE: Two views of the left hip. FINDINGS: Assessment is suboptimal due to patient positioning. There is a redemonstrated comminuted intertrochanteric fracture of the left femur with displacement of fragments appearing similar to 03/01/2018. IMPRESSION: Redemonstrated comminuted intertrochanteric left femur fracture, similar to 03/01/2018.
--- NOTE | 2018-03-03 14:40 | Cons- Orthopedic ---
General Information and HPI Consulting Request Date of Consult: 03/02/18 Requested By: Abran Alonso MD Reason for Consult: Left comminuted, displaced intertrochanteric region hip fracture Source of Information: old records, nursing Exam Limitations: intubated, responsive and following commands but limited to gestures and head nod for communication. History of Present Illness: Estella Knox is an 83 year old white female NIDD with HTN, CAD and other complex medical history who slipped and fell in her kitchen impacting her left hip after which she was unable to stand or mobilize. She was BIBA to [facility] Emergency Department where CT scan documented her comminuted, displaced 4-part intertrochanteric fracture with slight subtrochanteric extension. According to available reports, while in radiology, the patient had an episode of severe bradycardia (with pulse rate reportedly measured at 20) and may have had seizure activity with prolonged postictal state thereafter. The possibility of CVA was also considered and evaluated by neurology. The patient is now more responsive and her fairly short turnaround suggests more of a postictal state and a CVA particularly given the workup that she has had following episode. Definitive determination of the etiology for her episode and decisions regarding treatment for any potential underlying conditions is still ongoing and will be deferred to the primary medicine and consultation subspecialty medicine teams. See medicine admission, medical subspecialty consult and other notes for additional details of Hx. Until very recently the patient was not considered a candidate for surgical intervention but now that she is more responsive clearance for surgery is beginning so far there are no strict contraindications to surgical intervention based on these initial evaluations however the patient would have been considered high risk even before her episode and now obviously needs to be ruled out for any absolute contraindications to surgical intervention. Allergies/Medications Allergies: Coded Allergies: NO KNOWN ALLERGIES (04/30/16) Home Med List: Cholecalciferol (Vitamin D3) (Vitamin D) 5,000 UNIT TABLET 1 TAB PO DAILY SUPPLEMENT (Reported) Cyanocobalamin (Vitamin B-12) 1,000 MCG TABLET 1 TAB PO DAILY SUPPLEMENT ( Reported) Dipyridamole W/ Aspirin (Aggrenox 25 MG-200 MG Capsule) 25 MG-200 MG CPMP.12HR 1 CAP PO BID BLOOD THINNER (Reported) Docusate Sodium (Colace) 100 MG CAPSULE 1 CAP PO DAILY STOOL SOFTENER ( Reported) Donepezil HCl (Aricept) 10 MG TABLET 1 TAB PO QPM DEMENTIA (Reported) Doxycycline Hyclate 50 MG CAPSULE 1 CAP PO DAILY ABX (Reported) Escitalopram Oxalate (Lexapro) 10 MG TABLET 1 TAB PO DAILY ANXIETY (Reported) Ferrous Sulfate 325 MG (65 MG IRON) TABLET 1 TAB PO DAILY SUPPLEMENT ( Reported) Insulin Aspart (Novolog) 100 UNIT/ML VIAL 4 UNITS SC QAM DM (Reported) Insulin Aspart (Novolog) 100 UNIT/ML VIAL 8 UNITS SC DAILY DM (Reported) Insulin Detemir (Levemir) 100 UNIT/ML VIAL 6 UNITS SC QAM DM (Reported) Insulin Detemir (Levemir) 100 UNIT/ML VIAL 4 UNITS SC QPM DM (Reported) Losartan Potassium 50 MG TABLET 1 TAB PO DAILY BP (Reported) Meloxicam 7.5 MG TABLET 1 TAB PO DAILY PAIN/INFLAMMATION (Reported) Metoprolol Succ XL (Toprol XL) 25 MG TAB 1 TAB PO DAILY HTN (Reported) Rosuvastatin Calcium (Crestor) 20 MG TABLET 1 TAB PO DAILY CHOLESTEROL ( Reported) Past History Medical History Neurological: NONE EENT: NONE Cardiovascular: BRADYCARDIA, HTN Respiratory: LUNG SCARRING Gastrointestinal: DIVERTIC Hepatic: NONE Renal: NONE Musculoskeletal: NONE Psychiatric: NONE Endocrine: TYPE 2 DIABETES Blood Disorders: NONE Cancer(s): NONE 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 Home Services at Home: None Smoking Status: Never Smoked (second hand exposure) ETOH Use: unknown Functional Ability ADLs Independent: dressing, eating, toileting, bathing. Ambulation: walker IADLs Needs Assist: finances, medication admin. Review of Systems Review of Systems: Information obtained from chart. Not able to review with patient due to intubation. Exam & Diagnostic Data Vital Signs and I&O AVSS Physical Exam: Limited exam. Intubated and slightly sedated. Responsive. Moves toes to command. No obvious distal strength deficit to toe and ankle plantar and dorsiflexion but other neuro exam could not be performed. Minimal ecchymosis and moderate swelling in hip region. Mild to moderate pain (per facial expression) to minimal palpation and log roll of leg required for cutaneous examination. No other motion tested. No other obvious areas of injury or pain. Assessment/Plan Assessment/Plan Estella Knox is an 83 year old white female NIDD with HTN, CAD and numerous other complex medical comorbidities who slipped and fell in her kitchen impacting her left hip and sustaining a comminuted, displaced 4-part intertrochanteric fracture with slight subtrochanteric extension. She may have had a CVA versus SZ in CT at the time of admission. She is beginning to stabilize and surgery is now a consideration. Once all primary and consulting medical services have determines that the patient has a high likelihood of tolerating and certainly surviving anesthesia and surgical intervention and that she is optimized for the procedure it is reasonable to proceed with ORIF ( cephalomedullary nail) on an expedited basis. This should only be pushed to an urgent or emergent basis if she is cleard and optimized medically and then deteriorates due to changes related to her fracture. We will try to arrange surgery within 24-48 hours from the time of final optimization by all involved services. Consult Acknowledgment - Thank you for your consult request. Attending MD Review Statement Attending Statement Attending MD Statement: examined this patient, discuss w/resident/PA/CUMULATIVE EFFECTS ANALYST, agreed w/resident/PA/CUMULATIVE EFFECTS ANALYST, discussed with family ((spoke to son who is POA)), reviewed EMR data (avail), discussed w/nursing, reviewed images Attending Assessment/Plan: See above Assessment/Plan Section completed by consulting orthopaedic surgery attending, Bal Stewart M.D.
[2018-03-03 16:00] VITALS: BP 112/52
--- NOTE | 2018-03-03 17:14 | PN- Neurology ---
Subjective Subjective: Still intubated and on versed but awake, C/O discomfort from ETT when asked ( nods yes or no appropriately) Review of Systems: Hip pain Objective Vital Signs and I&Os Vital Signs Date Time Temp Pulse Resp B/P B/P Pulse O2 O2 Flow FiO2 Mean Ox Delivery Rate 03/03 1620 28 03/03 1600 98 Ventilator 28% 03/03 1600 97.2 75 14 112/52 98 Ventilator 28% 04/ 1347 28 04/ 1200 97 Ventilator 28% 03/03 1128 28 03/03 0835 28 03/03 0800 98 Ventilator 28% 03/03 0800 98.0 61 14 156/64 98 Ventilator 28% 03/03 0552 28 03/03 0400 97 Ventilator 28% 03/03 0302 28 / 0043 28 04 0000 95 Ventilator 28% 04/ 0000 98.4 57 14 152/72 95 Ventilator 28% 03/02 2216 28 03/02 2000 97 Ventilator 28% Intake & Output 03/03 1600 03/03 0800 04/ 0000 03/02 1600 03/02 0800 / 0000 Intake Total 1018 774.3 922.9 880 538 Output Total 350 400 275 250 740 50 Balance 668 374.3 647.9 630 -202 -50 Intake, IV 958 774.3 862.9 820 538 Intake, Oral 0 0 0 Intake, Other 60 60 60 Number 0 0 0 0 1 Bowel Movements Output, 200 150 50 Gastric Drainage Output, Urine 150 250 275 250 740 Patient 173 lb 165 lb Weight Weight Bed scale Measurement Method Physical Exam: opens eyes to voice, stays awake. Oriented to ICU. EOMI, VFF no facial assymetry, leak inspector equal, tone equal no pathological reflexes Current Medications: Current Medications Sig/Faraz Start time Last Medication Dose Route Stop Time Status Admin Aspirin 81 MG DAILY 03/02 1915 AC 03/03 PO 1059 Atorvastatin Calcium 80 MG 1700 03/02 1700 AC 04/ PO 1754 Dextrose/Sodium 1,000 ML Q13H 03/02 0215 AC 0403 Chloride IV 0800 Escitalopram Oxalate 10 MG DAILY 04/ 1000 AC 04/ PO 1059 Fentanyl Citrate 1,000 MCG Q10H / 1800 AC Dextrose/Water 250 ML IV Fentanyl Citrate 1,000 MCG Q12H 03/02 2000 AC 03/03 Dextrose/Water 250 ML IV 03/03 1759 0800 Fentanyl Citrate 1,000 MCG Q24H 03/02 0200 DC 03/02 Dextrose/Water 250 ML IV 03/02 2000 0215 Insulin Human Regular 0 Q6 03/02 2359 AC 03/03 SC 1124 Insulin Human Regular 0 Q6 03/02 0600 DC 03/02 SC 1841 Levetiracetam 750 MG Q12 03/02 1000 AC 03/03 Sodium Chloride 100 ML IV 1059 Pantoprazole Sodium 40 MG DAILY 03/02 1000 AC 03/03 IV 1059 Results Last 24 Hours of Lab Results: Laboratory Tests 03/03 03/03 0600 0400 Blood Gas pH (7.35 - 7.45 PH) 7.38 pCO2 (35 - 45 TORR) 35 pO2 (80 - 100 TORR) 117 H HCO3 (21 - 28 MEQ/L) 20 L ABG O2 Sat (Measured) (>96.0 %) 98.0 P-50 (Temp Corrected) N Carboxyhemoglobin (1.5 - 5.0 %) 0.1 L O2 Concentration % .28 Respiration Rate (BPM) 14 O2 Delivery Method VENT Vent Mode A/C Expiratory Pressure (CMH2O/P) 5 Tidal Volume (CC) 500 Chemistry Sodium (137 - 145 mmol/L) 134 L Potassium (3.5 - 5.1 mmol/L) 4.2 Chloride (98 - 107 mmol/L) 105 Carbon Dioxide (22 - 30 mmol/L) 19 L Anion Gap (5 - 16) 9 BUN (7 - 17 mg/dL) 25 H Creatinine (0.5 - 1.0 mg/dL) 1.3 H Estimated GFR (>60 ml/min) 39 L Glucose (65 - 99 mg/dL) 167 H Calcium (8.4 - 10.2 mg/dL) 7.8 L Phosphorus (2.5 - 4.5 mg/dL) 4.1 Magnesium (1.6 - 2.3 mg/dL) 1.8 Total Bilirubin (0.2 - 1.3 mg/dL) 0.6 AST (14 - 36 U/L) 24 ALT (9 - 52 U/L) 19 Albumin (3.5 - 5.0 g/dL) 2.5 L Hematology CBC w Diff NO MAN DIFF REQ WBC (4.8 - 10.8 /CUMM) 17.2 H RBC (4.20 - 5.40 /CUMM) 2.83 L Hgb (12.0 - 16.0 G/DL) 8.5 L Hct (37 - 47 %) 25.7 L MCV (81.0 - 99.0 FL) 90.7 MCH (27.0 - 31.0 PG) 30.0 MCHC (33.0 - 37.0 G/DL) 33.1 RDW (11.5 - 14.5 %) 15.4 H Plt Count (130 - 400 /CUMM) 219 MPV (7.4 - 10.4 FL) 8.8 Gran % (42.2 - 75.2 %) 82.0 H Lymphocytes % (20.5 - 51.1 %) 8.5 L Monocytes % (1.7 - 9.3 %) 8.5 Eosinophils % (0 - 5 %) 0.5 Basophils % (0.0 - 2.0 %) 0.5 Absolute Granulocytes (1.4 - 6.5 /CUMM) 14.1 H Absolute Lymphocytes (1.2 - 3.4 /CUMM) 1.5 Absolute Monocytes (0.10 - 0.60 /CUMM) 1.5 H Absolute Eosinophils (0.0 - 0.7 /CUMM) 0.1 Absolute Basophils (0.0 - 0.2 /CUMM) 0.1 Miscellaneous Phlebotomy Draw Site RIGHT RADIAL Recent Imaging Studies: EEG: moderate generalized slowing c/w a diffuse encephalopathy, no seizure activity or focal abnormalities Head CT follow-up: No evidence for acute intracranial injury. Stable age- appropriate appearance of the brain. Assessment/Plan Assessment: Unresponsive episode leading to intubation, resolved, now awake, follows commands. No evidence of CVA or seizure. Suspect due to bradyarrhythmia. Plan: OK neurologically to undergo hip surgery would leave Cristhiansami on board empirically for now, taper off after surgery and extubation cardiology followup call back if further neurological input required
--- NOTE | 2018-03-03 22:30 | PN- Orthopedic ---
Subjective Subjective: Patient is intubated and is unable to provide a history. Objective Vital Signs and I&Os Vital Signs Date Time Temp Pulse Resp B/P B/P Pulse O2 O2 Flow FiO2 Mean Ox Delivery Rate 03/03 2125 28 04/ 1620 28 04/ 1600 98 Ventilator 28% 04/ 1600 97.2 75 14 112/52 98 Ventilator 28% 04/ 1347 28 04/ 1200 97 Ventilator 28% 04/ 1128 28 04/ 0835 28 04/ 0800 98 Ventilator 28% 04/ 0800 98.0 61 14 156/64 98 Ventilator 28% 04/ 0552 28 04/ 0400 97 Ventilator 28% 04/ 0302 28 04/ 0043 28 04/ 0000 95 Ventilator 28% 04/ 0000 98.4 57 14 152/72 95 Ventilator 28% Intake & Output / 1600 04/03 0800 04/03 0000 04/ 1600 / 0800 04/ 0000 Intake Total 1018 774.3 922.9 880 538 Output Total 350 400 275 250 740 50 Balance 668 374.3 647.9 630 -202 -50 Intake, IV 958 774.3 862.9 820 538 Intake, Oral 0 0 0 Intake, Other 60 60 60 Number 0 0 0 0 1 Bowel Movements Output, 200 150 50 Gastric Drainage Output, Urine 150 250 275 250 740 Patient 173 lb 165 lb Weight Weight Bed scale Measurement Method Physical Exam: General: Intubated but arousable Extremities: Left Hip Dressing c/d/i w/o any strikethrough Current Medications: Current Medications Sig/Faraz Start time Last Medication Dose Route Stop Time Status Admin Aspirin 81 MG DAILY 03/02 1915 AC 03/03 PO 1059 Atorvastatin Calcium 80 MG 1700 / 1700 AC 04/ PO 1754 Cefazolin Sodium 2 GM IQ8 03/04 0000 UNVr N/A 1 UNIT IV 03/05 0000 Dextrose/Sodium 1,000 ML Q13H 03/02 0215 AC 04 Chloride IV 1814 Escitalopram Oxalate 10 MG DAILY 03/02 1000 AC 04/ PO 1059 Fentanyl Citrate 1,000 MCG Q10H / 1800 AC 04 Dextrose/Water 250 ML IV 1814 Fentanyl Citrate 1,000 MCG Q12H / 2000 DC 04 Dextrose/Water 250 ML IV 03/03 1759 0800 Insulin Human Regular 0 Q6 03/02 2359 03/03 SC 1813 Insulin Human Regular 0 Q6 03/02 0600 AL 03/02 SC 1841 Levetiracetam 750 MG Q12 03/02 1000 03/03 Sodium Chloride 100 ML IV 2211 Pantoprazole Sodium 40 MG DAILY 03/02 1000 03/03 IV 1059 Results Last 48 Hours of Labs: Laboratory Tests 03/03 03/03 1800 0600 Blood Gas pH (7.35 - 7.45 PH) 7.38 pCO2 (35 - 45 TORR) 35 pO2 (80 - 100 TORR) 117 H HCO3 (21 - 28 MEQ/L) 20 L ABG O2 Sat (Measured) (>96.0 %) 98.0 P-50 (Temp Corrected) N Carboxyhemoglobin (1.5 - 5.0 %) 0.1 L O2 Concentration % .28 Respiration Rate (BPM) 14 O2 Delivery Method VENT Vent Mode A/C Expiratory Pressure (CMH2O/P) 5 Tidal Volume (CC) 500 Chemistry Sodium Cancelled Potassium Cancelled Chloride Cancelled Carbon Dioxide Cancelled Anion Gap Cancelled BUN Cancelled Creatinine Cancelled Glucose Cancelled Calcium Cancelled Phosphorus Cancelled Magnesium Cancelled Total Bilirubin Cancelled AST Cancelled ALT Cancelled Albumin Cancelled Miscellaneous Phlebotomy Draw Site RIGHT RADIAL 03/03 03/02 0400 1000 Chemistry Sodium (137 - 145 mmol/L) 134 L Potassium (3.5 - 5.1 mmol/L) 4.2 Chloride (98 - 107 mmol/L) 105 Carbon Dioxide (22 - 30 mmol/L) 19 L Anion Gap (5 - 16) 9 BUN (7 - 17 mg/dL) 25 H Creatinine (0.5 - 1.0 mg/dL) 1.3 H Estimated GFR (>60 ml/min) 39 L Glucose (65 - 99 mg/dL) 167 H Calcium (8.4 - 10.2 mg/dL) 7.8 L Phosphorus (2.5 - 4.5 mg/dL) 4.1 Magnesium (1.6 - 2.3 mg/dL) 1.8 Total Bilirubin (0.2 - 1.3 mg/dL) 0.6 AST (14 - 36 U/L) 24 ALT (9 - 52 U/L) 19 Troponin I (< 0.11 ng/ml) 0.13 *H Albumin (3.5 - 5.0 g/dL) 2.5 L Hematology CBC w Diff NO MAN DIFF REQ WBC (4.8 - 10.8 /CUMM) 17.2 H RBC (4.20 - 5.40 /CUMM) 2.83 L Hgb (12.0 - 16.0 G/DL) 8.5 L Hct (37 - 47 %) 25.7 L MCV (81.0 - 99.0 FL) 90.7 MCH (27.0 - 31.0 PG) 30.0 MCHC (33.0 - 37.0 G/DL) 33.1 RDW (11.5 - 14.5 %) 15.4 H Plt Count (130 - 400 /CUMM) 219 MPV (7.4 - 10.4 FL) 8.8 Gran % (42.2 - 75.2 %) 82.0 H Lymphocytes % (20.5 - 51.1 %) 8.5 L Monocytes % (1.7 - 9.3 %) 8.5 Eosinophils % (0 - 5 %) 0.5 Basophils % (0.0 - 2.0 %) 0.5 Absolute Granulocytes (1.4 - 6.5 /CUMM) 14.1 H Absolute Lymphocytes (1.2 - 3.4 /CUMM) 1.5 Absolute Monocytes (0.10 - 0.60 /CUMM) 1.5 H Absolute Eosinophils (0.0 - 0.7 /CUMM) 0.1 Absolute Basophils (0.0 - 0.2 /CUMM) 0.1 03/02 04/ 0400 0320 Blood Gas pH (7.35 - 7.45 PH) 7.39 pCO2 (35 - 45 TORR) 32 L pO2 (80 - 100 TORR) 108 H HCO3 (21 - 28 MEQ/L) 19 L ABG O2 Sat (Measured) (>96.0 %) 97.0 P-50 (Temp Corrected) Y Carboxyhemoglobin (1.5 - 5.0 %) 0.3 L O2 Concentration % 28% Temperature (97.0 - 100.0 FARH) 97.6 Respiration Rate (BPM) 14 O2 Delivery Method ESPRIT Vent Mode AC Expiratory Pressure (CMH2O/P) 5 Tidal Volume (CC) 500 Chemistry Sodium (137 - 145 mmol/L) 135 L Potassium (3.5 - 5.1 mmol/L) 4.6 Chloride (98 - 107 mmol/L) 105 Carbon Dioxide (22 - 30 mmol/L) 21 L Anion Gap (5 - 16) 9 BUN (7 - 17 mg/dL) 31 H Creatinine (0.5 - 1.0 mg/dL) 1.4 H Estimated GFR (>60 ml/min) 36 L Glucose (65 - 99 mg/dL) 160 H Calcium (8.4 - 10.2 mg/dL) 8.2 L Phosphorus (2.5 - 4.5 mg/dL) 5.0 H Magnesium (1.6 - 2.3 mg/dL) 1.9 Total Bilirubin (0.2 - 1.3 mg/dL) 0.4 AST (14 - 36 U/L) 20 ALT (9 - 52 U/L) 17 Troponin I (< 0.11 ng/ml) 0.17 *H Albumin (3.5 - 5.0 g/dL) 2.8 L Hematology CBC w Diff MAN DIFF ORDERED WBC (4.8 - 10.8 /CUMM) 18.8 H RBC (4.20 - 5.40 /CUMM) 3.03 L Hgb (12.0 - 16.0 G/DL) 8.9 L Hct (37 - 47 %) 27.2 L MCV (81.0 - 99.0 FL) 89.8 MCH (27.0 - 31.0 PG) 29.5 MCHC (33.0 - 37.0 G/DL) 32.8 L RDW (11.5 - 14.5 %) 15.7 H Plt Count (130 - 400 /CUMM) 265 MPV (7.4 - 10.4 FL) 8.3 Gran % (42.2 - 75.2 %) 89.6 H Lymphocytes % (20.5 - 51.1 %) 4.1 L Monocytes % (1.7 - 9.3 %) 6.3 Eosinophils % (0 - 5 %) 0 Basophils % (0.0 - 2.0 %) 0 Absolute Granulocytes (1.4 - 6.5 /CUMM) 16.8 H Segmented Neutrophils (42.2 - 75.2 %) 80 H Band Neutrophils (0.0 - 5.0 %) 10 H Absolute Lymphocytes (1.2 - 3.4 /CUMM) 0.8 L Lymphocytes (20.5 - 51.1 %) 5 L Monocytes (1.7 - 9.3 %) 5 Absolute Monocytes (0.10 - 0.60 /CUMM) 1.2 H Absolute Eosinophils (0.0 - 0.7 /CUMM) 0 Absolute Basophils (0.0 - 0.2 /CUMM) 0 Platelet Estimate (ADEQUATE) ADEQUATE Hypochromic-Microcytic 1+ Anisocytosis 1+ Kenneth Cells FEW Elliptocytes 1+ Miscellaneous Phlebotomy Draw Site RIGHT RADIAL Recent Imaging Studies: Left Hip X-ray 03/03/18: Redemonstrated comminuted intertrochanteric left femur fracture, similar to 03/01/2018. Assessment/Plan Assessment/Plan This is an 83-year-old female with a past medical history of coronary artery disease, lacunar infarct in 2012 (on Aggrenox), diabetes ([id number]) , hypertension, diverticulitis, interstitial lung disease, chronic kidney disease stage III, bradycardia and dementia presenting this admission with a left intertrochanteric comminuted displaced femur fracture seen on imaging status post apparent mechanical fall. Now s/p Left Hip ORIF on 03/03/18. 1. Hold all anticoagulants x 24 hours if possible 2. Ancef 2gm IV x 3 doses or until extubated whichever comes last 3. When extubated PT, ttwb on the left with fwb on the right to pivot 4. PRN analgesics 5. Please see primary teams note for management of her other acute and chronic comorbidities 6. Dressing change by team on POD #2 7. Ok for a diet from our standpoint once extubated 8. Case discussed with Dr. Stewart who is in agreement with the plan of care Problem List: 1. Fracture of left hip 2. Status post-operative repair of closed fracture of left hip Core Measures Venous Thromboembolism VTE Risk Factors Age>40 No Mechanical VTE Prophylaxis d/t N/A MechProphylax Ordered No VTE Pharm Prophylaxis d/t NA PharmProphylax ordered
--- NOTE | 2018-03-03 22:31 | RADIOLOGY REPORT ---
EXAMINATION: XR HIP, LEFT CLINICAL INFORMATION: Intraoperative fixation of femoral fracture. COMPARISON: Left hip radiographs from 03/03/2018 TECHNIQUE: Intraoperative fluoroscopic imaging of the left femur/hip was performed. Number of saved fluoroscopic images: 21. Fluoroscopy time: 3 minutes, 4.9 seconds. Dose: 1.91 rad FINDINGS: The fluoroscopic images were acquired at the time of open reduction and internal fixation of the intertrochanteric femur fracture. The dynamic femoral neck screw and long intramedullary rey are in satisfactory position; the rey is stabilized by 2 distal interlocking screws. The reduced femoral fragments are in near-anatomic position. The visualized components of the left total knee arthroplasty are intact. IMPRESSION: Status post open reduction and internal fixation of the left femoral intertrochanteric fracture.
[2018-03-04] VITALS: BP 132/70
[2018-03-04 03:56] LABS: ABSOLUTE BASOPHIL COUNT 0 /CUMM (0.0-0.2); ABSOLUTE EOSINOPHIL COUNT 0.1 /CUMM (0.0-0.7); ABSOLUTE GRANULOCYTE CT 16.1 /CUMM (1.4-6.5); ABSOLUTE LYMPH COUNT 1.1 /CUMM (1.2-3.4); ABSOLUTE MONOCYTE COUNT 1.5 /CUMM (0.10-0.60); BASOPHIL % 0.1 % (0.0-2.0); EOSINOPHIL % 0.5 % (0-5); HEMATOCRIT 23.8 % (37-47); MEAN CORPUSCULAR HGB 29.9 PG (27.0-31.0); MEAN CORPUSCULAR HGB CONC 33.1 G/DL (33.0-37.0); MEAN CORPUSCULAR VOLUME 90.4 FL (81.0-99.0); RBC DISTRIBUTION WIDTH 15.5 % (11.5-14.5); RED BLOOD CELL CT 2.63 /CUMM (4.20-5.40); WHITE BLOOD CELL COUNT 18.9 /CUMM (4.8-10.8)
[2018-03-04 04:24] LABS: GRANULOCYTE % 85.4 % (42.2-75.2); PLATELET COUNT 219 /CUMM (130-400)
--- NOTE | 2018-03-04 05:56 | PN- Orthopedic ---
Subjective Subjective: Patient is intubated and unable to history. She is awake and nods her head no to pain. No other issues or complaints per nursing. Objective Vital Signs and I&Os Vital Signs Date Time Temp Pulse Resp B/P B/P Pulse O2 O2 Flow FiO2 Mean Ox Delivery Rate 03/04 0548 28 03/04 0400 98 Ventilator 28% 03/04 0346 28 03/04 0110 28 04/ 0000 95 Ventilator 28% 03/04 0000 98.6 84 14 132/70 95 Ventilator 28% 03/03 2220 28 04 2130 96 Ventilator 28% 04 2125 28 04 1620 28 04/ 1600 98 Ventilator 28% 04/ 1600 97.2 75 14 112/52 98 Ventilator 28% 03/03 1347 28 04/ 1200 97 Ventilator 28% 03/03 1128 28 04 0835 28 04/ 0800 98 Ventilator 28% 03/03 0800 98.0 61 14 156/64 98 Ventilator 28% 03/03 0552 28 Intake & Output 03/04 0800 03/04 0000 03/03 1600 03 0800 / 0000 02 1600 Intake Total 1004 1018 774.3 922.9 880 Output Total 150 350 400 275 250 Balance 854 668 374.3 647.9 630 Intake, IV 1004 958 774.3 862.9 820 Intake, Oral 0 0 0 0 Intake, Other 60 60 60 Number 0 0 0 0 0 Bowel Movements Output, 200 150 Gastric Drainage Output, Urine 150 150 250 275 250 Patient 173 lb 165 lb Weight Weight Bed scale Measurement Method Physical Exam: General: Intubated but alert, awake and in NAD Extremities: Left Hip Dressing c/d/i w/o any strikethrough, distal neurovascular status intact, no clubbing, cyanosis or edema otherwise appreciated Current Medications: Current Medications Sig/Faraz Start time Last Medication Dose Route Stop Time Status Admin Aspirin 81 MG DAILY 03/02 1915 AC 03/03 PO 1059 Atorvastatin Calcium 80 MG 1700 03/02 1700 AC 03/02 PO 1754 Cefazolin Sodium 2 GM IQ8 03/04 0000 AC 03/04 N/A 1 UNIT IV 03/05 0000 0001 Dextrose/Sodium 1,000 ML Q13H 03/02 0215 AC 03/03 Chloride IV 2354 Escitalopram Oxalate 10 MG DAILY 03/02 1000 AC 03/03 PO 1059 Fentanyl Citrate 250 MCG .STK-MED ONE 03/03 1809 DC IM 03/03 1810 Fentanyl Citrate 1,000 MCG Q10H 03/03 1800 AC 03/03 Dextrose/Water 250 ML IV 2317 Fentanyl Citrate 1,000 MCG Q12H 03/02 2000 DC 03/03 Dextrose/Water 250 ML IV 03/03 1759 0800 Insulin Human Regular 0 Q6 03/02 2359 AC 03/03 SC 2327 Levetiracetam 750 MG Q12 03/02 1000 AC 03/03 Sodium Chloride 100 ML IV 2211 Pantoprazole Sodium 40 MG DAILY 03/02 1000 AC 03/03 IV 1059 Results Last 48 Hours of Labs: Laboratory Tests 03/04 03/03 0334 1800 Chemistry Sodium (137 - 145 mmol/L) 131 L Cancelled Potassium (3.5 - 5.1 mmol/L) 4.4 Cancelled Chloride (98 - 107 mmol/L) 102 Cancelled Carbon Dioxide (22 - 30 mmol/L) 20 L Cancelled Anion Gap (5 - 16) 9 Cancelled BUN (7 - 17 mg/dL) 26 H Cancelled Creatinine (0.5 - 1.0 mg/dL) 1.7 H Cancelled Estimated GFR (>60 ml/min) 29 L Glucose (65 - 99 mg/dL) 158 H Cancelled Calcium (8.4 - 10.2 mg/dL) 7.7 L Cancelled Phosphorus (2.5 - 4.5 mg/dL) 5.0 H Cancelled Magnesium (1.6 - 2.3 mg/dL) 1.7 Cancelled Total Bilirubin (0.2 - 1.3 mg/dL) 0.3 Cancelled AST (14 - 36 U/L) 27 Cancelled ALT (9 - 52 U/L) 23 Cancelled Albumin (3.5 - 5.0 g/dL) 2.4 L Cancelled Hematology CBC w Diff NO MAN DIFF REQ WBC (4.8 - 10.8 /CUMM) 18.9 H RBC (4.20 - 5.40 /CUMM) 2.63 L Hgb (12.0 - 16.0 G/DL) 7.9 L Hct (37 - 47 %) 23.8 L MCV (81.0 - 99.0 FL) 90.4 MCH (27.0 - 31.0 PG) 29.9 MCHC (33.0 - 37.0 G/DL) 33.1 RDW (11.5 - 14.5 %) 15.5 H Plt Count (130 - 400 /CUMM) 219 MPV (7.4 - 10.4 FL) 8.0 Gran % (42.2 - 75.2 %) 85.4 H Lymphocytes % (20.5 - 51.1 %) 6.0 L Monocytes % (1.7 - 9.3 %) 8.0 Eosinophils % (0 - 5 %) 0.5 Basophils % (0.0 - 2.0 %) 0.1 Absolute Granulocytes (1.4 - 6.5 /CUMM) 16.1 H Absolute Lymphocytes (1.2 - 3.4 /CUMM) 1.1 L Absolute Monocytes (0.10 - 0.60 /CUMM) 1.5 H Absolute Eosinophils (0.0 - 0.7 /CUMM) 0.1 Absolute Basophils (0.0 - 0.2 /CUMM) 0 /03 04/03 0600 0400 Blood Gas pH (7.35 - 7.45 PH) 7.38 pCO2 (35 - 45 TORR) 35 pO2 (80 - 100 TORR) 117 H HCO3 (21 - 28 MEQ/L) 20 L ABG O2 Sat (Measured) (>96.0 %) 98.0 P-50 (Temp Corrected) N Carboxyhemoglobin (1.5 - 5.0 %) 0.1 L O2 Concentration % .28 Respiration Rate (BPM) 14 O2 Delivery Method VENT Vent Mode A/C Expiratory Pressure (CMH2O/P) 5 Tidal Volume (CC) 500 Chemistry Sodium (137 - 145 mmol/L) 134 L Potassium (3.5 - 5.1 mmol/L) 4.2 Chloride (98 - 107 mmol/L) 105 Carbon Dioxide (22 - 30 mmol/L) 19 L Anion Gap (5 - 16) 9 BUN (7 - 17 mg/dL) 25 H Creatinine (0.5 - 1.0 mg/dL) 1.3 H Estimated GFR (>60 ml/min) 39 L Glucose (65 - 99 mg/dL) 167 H Calcium (8.4 - 10.2 mg/dL) 7.8 L Phosphorus (2.5 - 4.5 mg/dL) 4.1 Magnesium (1.6 - 2.3 mg/dL) 1.8 Total Bilirubin (0.2 - 1.3 mg/dL) 0.6 AST (14 - 36 U/L) 24 ALT (9 - 52 U/L) 19 Albumin (3.5 - 5.0 g/dL) 2.5 L Hematology CBC w Diff NO MAN DIFF REQ WBC (4.8 - 10.8 /CUMM) 17.2 H RBC (4.20 - 5.40 /CUMM) 2.83 L Hgb (12.0 - 16.0 G/DL) 8.5 L Hct (37 - 47 %) 25.7 L MCV (81.0 - 99.0 FL) 90.7 MCH (27.0 - 31.0 PG) 30.0 MCHC (33.0 - 37.0 G/DL) 33.1 RDW (11.5 - 14.5 %) 15.4 H Plt Count (130 - 400 /CUMM) 219 MPV (7.4 - 10.4 FL) 8.8 Gran % (42.2 - 75.2 %) 82.0 H Lymphocytes % (20.5 - 51.1 %) 8.5 L Monocytes % (1.7 - 9.3 %) 8.5 Eosinophils % (0 - 5 %) 0.5 Basophils % (0.0 - 2.0 %) 0.5 Absolute Granulocytes (1.4 - 6.5 /CUMM) 14.1 H Absolute Lymphocytes (1.2 - 3.4 /CUMM) 1.5 Absolute Monocytes (0.10 - 0.60 /CUMM) 1.5 H Absolute Eosinophils (0.0 - 0.7 /CUMM) 0.1 Absolute Basophils (0.0 - 0.2 /CUMM) 0.1 Miscellaneous Phlebotomy Draw Site RIGHT RADIAL 03/02 1000 Chemistry Troponin I (< 0.11 ng/ml) 0.13 *H Recent Imaging Studies: Left Hip X-ray 03/03/18: Status post open reduction and internal fixation of the left femoral intertrochanteric fracture. Chest X-ray 03/04/18: Pending Assessment/Plan Assessment/Plan This is an 83-year-old female with a past medical history of coronary artery disease, lacunar infarct in 2012 (on Aggrenox), diabetes ([id number]) , hypertension, diverticulitis, interstitial lung disease, chronic kidney disease stage III, bradycardia and dementia presenting this admission with a left intertrochanteric comminuted displaced femur fracture seen on imaging status post apparent mechanical fall. Now s/p Left Hip ORIF on 03/03/18. 1. Hold all anticoagulants x 24 hours if possible 2. Ancef 2gm IV x 3 doses or until extubated whichever comes last 3. When extubated PT, ttwb on the left with fwb on the right to pivot 4. PRN analgesics 5. Please see primary teams note for management of her other acute and chronic comorbidities 6. Dressing change by team on POD #2 7. Ok for a diet from our standpoint once extubated 8. Case will be discussed with Dr. Stewart to make sure he is in agreement with the plan of care Problem List: 1. Fracture of left hip 2. Status post-operative repair of closed fracture of left hip Core Measures Venous Thromboembolism VTE Risk Factors Age>40 No Mechanical VTE Prophylaxis d/t N/A MechProphylax Ordered No VTE Pharm Prophylaxis d/t NA PharmProphylax ordered
--- NOTE | 2018-03-04 06:04 | RADIOLOGY REPORT ---
EXAMINATION: XR PORTABLE CHEST CLINICAL INFORMATION: Respiratory failure. Intubation. COMPARISON: Chest x-ray March 03, 2018. TECHNIQUE: Portable frontal view of the chest was obtained. 5:31 AM FINDINGS: Endotracheal tube 6 cm above ld. Nasogastric tube tip is in stomach. Status post median sternotomy. Status post cardiac valve replacement. Heart size is enlarged. There is no pulmonary vascular congestion. Lungs are clear. No infiltrate or pleural effusion. No pneumothorax. IMPRESSION: Endotracheal tube 6 above ld. Nasogastric tube in stomach. No acute abnormality the chest.
--- NOTE | 2018-03-04 07:22 | PN- Resident CRCU ---
See Addendum Subjective HPI/CRCU Issues: Overnight events: Patient was taken for surgery yesterday evening is now status post left hip ORIF postoperative day one. Patient remains intubated on fentanyl drip. Per overnight team patient has had decreased urine output over the past 2 hours. Patient this morning is intubated on an IV fentanyl drip. Patient is drowsy but arousable. Patient is unable to talk with endotracheal tube. Patient nods to questions. Denies any chest pain, shortness of breath, abdominal pain. Reports hip pain. Vitals: MAXIMUM TEMPERATURE 98.6, HR: 58 to 84, RR: 13 to 15, BP: 121/53 (range: 112-156 /53-67), saturating at 96-98% on mechanical ventilation I: 6099, O: 2165 Accuchecks: 150, 176, 139, 165, 126 Labs: WBC 18.9 with 85.4 percent granulocytes, H&H 7.9 and 23.8, platelets 219 Sodium 131, potassium 4.4, chloride 102, bicarbonate 20, anion gap 9, BUN 26 and creatinine 1.7, glucose 158, calcium 7.7, phosphorus 5.0, magnesium 1.7, LFTs within normal limits ABG pH 7.38, PCO2 35, PO2 117, bicarbonate 20, ABG 98% on mechanical ventilation at a rate of 14, tidal volume of 500, PEEP of 5 and FiO2 of 20% Chest x-ray from this morning shows endotracheal tube in place above the ld, NG tube in place, no acute abnormalities. Objective Vital Signs & I&O Last 8 Hrs of Vitals and I&O: Vital Signs Date Time Temp Pulse Resp B/P B/P Pulse O2 O2 Flow FiO2 Mean Ox Delivery Rate 03/04 0836 28 03/04 0800 97.3 76 14 120/60 98 Ventilator 28% 03/04 0548 28 03/04 0400 98 Ventilator 28% 03/04 0346 28 03/04 0110 28 03/04 0000 95 Ventilator 28% 03/04 0000 98.6 84 14 132/70 95 Ventilator 28% 03/03 2220 28 03/03 2130 96 Ventilator 28% 03/03 2125 28 03/03 1620 28 03/03 1600 98 Ventilator 28% 04 1600 97.2 75 14 112/52 98 Ventilator 28% 03/03 1347 28 04/ 1200 97 Ventilator 28% 03/03 1128 28 Intake & Output 03/04 1600 03/04 0800 03/04 0000 Intake Total 961 1004 Output Total 150 150 Balance 811 854 Intake, IV 961 1004 Intake, Oral 0 0 Number 0 0 Bowel Movements Output, 0 Gastric Drainage Output, Urine 150 150 Exam General Appearance: well developed/nourished, sedated, intubated, drowsy but arousable, patient follows commands Head: atraumatic, normal appearance Respiratory: normal breath sounds, chest non-tender, no respiratory distress, quiet respiration, lungs clear Cardiovascular: regular rate/rhythm Gastrointestinal: normal bowel sounds, soft, non-tender Extremities: left hip covered in surgical dressing, tenderness to palpation around site Cranial Nerves: normal hearing, PERRL Skin: intact, normal color IV Drips IV Drips: IV Fentanyl Current Medications: Current Medications Sig/Faraz Start time Last Medication Dose Route Stop Time Status Admin Aspirin 81 MG DAILY 03/02 1915 AC 03/04 PO 0821 Atorvastatin Calcium 80 MG 1700 03/02 1700 AC 03/02 PO 1754 Cefazolin Sodium 2 GM IQ8 03/04 0000 AC 03/04 N/A 1 UNIT IV 04 0000 0821 Dextrose/Sodium 1,000 ML Q13H 03/02 0215 AC 03/03 Chloride IV 2354 Escitalopram Oxalate 10 MG DAILY 03/02 1000 AC 03/04 PO 0821 Fentanyl Citrate 1,000 MCG Q10H / 1100 AC Dextrose/Water 250 ML IV Fentanyl Citrate 250 MCG .STK-MED ONE 03/03 1809 DC IM / 1810 Fentanyl Citrate 1,000 MCG Q10H 03/03 1800 DC 04 Dextrose/Water 250 ML IV 2317 Fentanyl Citrate 1,000 MCG Q12H / 2000 DC 04/ Dextrose/Water 250 ML IV 04/ 1759 0800 Insulin Human Regular 0 Q6 03/02 2359 AC 03/04 SC 0640 Levetiracetam 750 MG Q12 / 1000 AC 04 Sodium Chloride 100 ML IV 0820 Pantoprazole Sodium 40 MG DAILY / 1000 AC 03/04 IV 0821 Sodium Chloride 500 ML BOLUS ONE 03/04 0830 AC 03/04 IV 03/04 0929 0904 Impression/Plan Impression/Problem List Impression: Patient is an 83-year-old female with past medical history of coronary artery disease, lacunar infarct in 2013 (on Aggrenox), diabetes ([id number]) , hypertension, diverticulitis, interstitial lung disease, chronic kidney disease stage III, bradycardia and dementia presenting this admission with a left intertrochanteric comminuted displaced femur fracture seen on imaging status post apparent mechanical fall. While patient was getting imaging done she had a seizure like activity vs stroke, had bradycardia to the 20s, became unresponsive with GCS fo 3 requiring intubation to protect her airway. Patient was started on keppra for seizure prophylaxis, neurology was contacted- no TPA was given. Patient was admitted to the ICU for management of the following: Respiratory: Intubated due to AMS to protect airway. Patient was trialed with CPAP and extubated successfully today. -continue oxygen supplementation and wean off as tolerated - TRC Infectious: Leukocytosis - likely reactive secondary to fracture and pain - as patient is afebrile with stable vital signs and improving WBC count, with no infiltrate seen on chest xray today - patient is on Ancef for vipul/postsurgical prophylaxis - to complete 3 doses total Cardiac: Bradycardia First degree AV block - cardiology consulted - beta tonya held - continue to monitor on telemetry Elevated Troponin - likely Type II UT: demand ischemia in setting of recent fracture. EKG shows no significant ST or T wave changes. Troponin peaked to 0.17. ECHO on 03/02 shows LVEF of 60 to 65% with no wall motion abnormalities with a normal functioning bioprosthetic aortic valve and pulmonary htn. - cardiology consulted - beta tonya held in setting of bradycardia - continue aspirin and statin History of CAD and HTN - continue losartan - continue statin Heme: Acute on chronic anemia - History of iron deficiency anemia, on iron supplements. Acute drop in the setting of femur fracture. H/H this afternoon was 7.6 and 23.4. Consent from son was obtained and 1 pRBC was ordered. - post transfusion h/h with a hemoglobin goal of > 8 - continue to monitor h/h - continue iron supplements Metabolic: Diabetes - Accuchecks - Insulin SS Hyponatremic Likely secondary to fluids, however hyponatremia is seen in 1 to 10% of people on fentanyl. Fentanyl drip was discontinued today after patient was extubated. Patient received 500cc bolus challenge in the morning. Patient's D51/2 NS was discontinued today. Patient has started to take PO intake. Patient's calculated osmolality is 289 which leans towards a pseudohyponatremic picture. Will check for hyperlipidemia and hyperproteinemia. 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 - IV fluids discontinued - Will repeat BEP - Lipid panel and total protein Ailmentary: Patient evaluated by swallow therapist. Started on a puree diet with nectar thick liquids. Diabetic diet with salt restriction. Neurologic: AMS 2/2 ?Stroke vs ?Seizure vs ?global hypoperfusion 2/2 bradycardia It is unclear if the patient had a stroke on day of admission or a seizure or if her seizure like activity was precipitated by a stroke. CTA and head CT were negative. Patient's prolactin was elevated. Patient also had severe bradycardia which may have lead to patient's unresponsiveness as well. Neurology was consulted. No tPA was given. Patient today is intubated with fentanyl drip today. Patient is responsive, following commands with no focal neurological deficits seen. Per neurology low suspicion of stroke however still recommend giving aspirin. Patient's repeat CT on 03/02 showed no acute intracranial pathology with stable age appropriate appearance. EEG was done showing abnormal/ moderate generalized slowing of conduction indicating diffuse encephalopathy but no focal/epileptiform waveform patterns. Patient is still on keppra for seizure prophylaxis. Neurology is okay with patient having surgery as there is low suspicion of stroke. Patient today is mentating at baseline with no focal neurological deficits. - Keppra for seizure prophylaxis until patient is extubated. Will start to taper patient off Keppra tomorrow. - Aspirin and Statin for suspected stroke - Aggrenox held - as it cannot be crushed. Ok'ed by neurology. - Cardiology on board. - Neurology on board. - Neurochecks - Aspiration precautions History of dementia - Patient's son is POA Nephrology: SATINDER on CKD stage III - baseline creatinine of 1.3, creatinine is 1.7 today. Patient had low urine output. Patient had a fluid bolus challenge with increase in urine output. - Repeat BEP tonight - Continue to monitor - Strict I/O - Avoid nephrotoxic agents Ortho: Left communuted and displaced femur fracture, S/P Left ORIF POD# 1 Per cardiology patient is at high risk given her risk factors however at this point patient is medically optimized for surgery. Per neurology patient is okay for surgery in setting of presumed seizure currently on antiepileptic medication and with no focal neurological finding with low suspicion of stroke with two head CTs with no acute intracranial pathology or indications of evolving stroke. AP and lateral hip xrays ordered per request of ortho - show femur fracture. Patient went had a left ORIF on 03/03 in the evening. - Ortho is on board - Further management of left hip per ortho - IV Ancef 2gm q8h x 3 doses - Surgical dressing to be changed by ortho on 03/05 - PT evaluation once patient is extubated. Weight bearing status per ortho. - Pain control with morphine and tylenol DVT PPx: ALPs only per surgery for 24 hours post op. GI PPx: Protonix Problem List: 1. Status post-operative repair of closed fracture of left hip 2. Encephalopathy 3. Hyponatremia Pain Ratin Tomorrow's Labs & Rationales: cbc- anemia, leukocytosis icu bundle - hyponatremia Plan DVT/Prophylaxis: mechanical
[2018-03-04 08:00] VITALS: BP 120/60
--- NOTE | 2018-03-04 09:56 | PN- Cardiology ---
See Addendum Subjective Subjective: The patient is awake, alert Complains of mild discomfort in the hip only The events of the last 24 hours as well as telemetry were reviewed. Review of Systems: The review of systems is negative for chest pains, palpitations nor lightheadedness. The remainder of the 14 point review of systems is noncontributory with the exception of above. Objective Vital Signs and I&Os Vital Signs Date Time Temp Pulse Resp B/P B/P Pulse O2 O2 Flow FiO2 Mean Ox Delivery Rate 03/04 0836 28 03/04 0800 97.3 76 14 120/60 98 Ventilator 28% 04 0548 28 03/04 0400 98 Ventilator 28% 03/04 0346 28 03/04 0110 28 04 0000 95 Ventilator 28% 03/04 0000 98.6 84 14 132/70 95 Ventilator 28% 04/ 2220 28 / 2130 96 Ventilator 28% / 2125 28 04/03 1620 28 04/ 1600 98 Ventilator 28% 04/ 1600 97.2 75 14 112/52 98 Ventilator 28% 04/ 1347 28 04/ 1200 97 Ventilator 28% 04/03 1128 28 Intake & Output 03/04 1600 04/04 0800 04/04 0000 04/03 1600 04/03 0800 04/03 0000 Intake Total 961 1004 1018 774.3 922.9 Output Total 150 150 350 400 275 Balance 811 854 668 374.3 647.9 Intake, IV 961 1004 958 774.3 862.9 Intake, Oral 0 0 0 0 Intake, Other 60 60 Number 0 0 0 0 0 Bowel Movements Output, 0 200 150 Gastric Drainage Output, Urine 150 150 150 250 275 Patient 173 lb Weight Weight Bed scale Measurement Method Physical Exam: General: Nontoxic, no apparent distress. HEENT: Sclera and conjunctiva within normal limits, without xanthelasmas. Neck: Carotids 2+ without bruits. Respiratory: Clear to auscultation, air movement is good, without accessory respiratory muscle use. Heart: Regular rate and rhythm, without murmurs, without JVD. Abdomen: Soft, nontender, no masses, normoactive bowel sounds. Extremities: Without clubbing, cyanosis, without edema. Neuro: Nonfocal exam, strength, 5 out of 5 Skin: Within normal limits without lesions. Psych: Mood and affect: Limited evaluation secondary to patient being intubated Current Medications: Current Medications Sig/Faraz Start time Last Medication Dose Route Stop Time Status Admin Aspirin 81 MG DAILY 03/02 1915 AC 03/04 PO 0821 Atorvastatin Calcium 80 MG 1700 03/02 1700 AC 03/02 PO 1754 Cefazolin Sodium 2 GM IQ8 03/04 0000 AC 03/04 N/A 1 UNIT IV 03/05 0000 0821 Dextrose/Sodium 1,000 ML Q13H 03/02 0215 AC 03/03 Chloride IV 2354 Escitalopram Oxalate 10 MG DAILY 03/02 1000 AC 03/04 PO 0821 Fentanyl Citrate 1,000 MCG Q10H 03/04 1100 AC Dextrose/Water 250 ML IV Fentanyl Citrate 250 MCG .STK-MED ONE 03/03 1809 DC IM 03/03 1810 Fentanyl Citrate 1,000 MCG Q10H 03/03 1800 DC 03/03 Dextrose/Water 250 ML IV 2317 Fentanyl Citrate 1,000 MCG Q12H 03/02 2000 DC 03/03 Dextrose/Water 250 ML IV 03/03 1759 0800 Insulin Human Regular 0 Q6 03/02 2359 AC 03/04 SC 0640 Levetiracetam 750 MG Q12 03/02 1000 AC 03/04 Sodium Chloride 100 ML IV 0820 Pantoprazole Sodium 40 MG DAILY 03/02 1000 AC 03/04 IV 0821 Sodium Chloride 500 ML BOLUS ONE 03/04 0830 DC 03/04 IV 03/04 0929 0904 Results Last 48 Hrs of Labs/Mics: Laboratory Tests 03/04/18 0600: CBC w Diff Cancelled, WBC Cancelled, RBC Cancelled, Hgb Cancelled, Hct Cancelled , MCV Cancelled, MCH Cancelled, MCHC Cancelled, RDW Cancelled, Plt Count Cancelled, MPV Cancelled 03/04/18 0334: Anion Gap 9, Estimated GFR 29 L, Glucose 158 H, Calcium 7.7 L, Phosphorus 5.0 H, Magnesium 1.7, Total Bilirubin 0.3, AST 27, ALT 23, Albumin 2.4 L, CBC w Diff NO MAN DIFF REQ, RBC 2.63 L, MCV 90.4, MCH 29.9, MCHC 33.1, RDW 15.5 H, MPV 8.0, Gran % 85.4 H, Lymphocytes % 6.0 L, Monocytes % 8.0, Eosinophils % 0.5, Basophils % 0.1, Absolute Granulocytes 16.1 H, Absolute Lymphocytes 1.1 L , Absolute Monocytes 1.5 H, Absolute Eosinophils 0.1, Absolute Basophils 0 03/03/18 1800: Sodium Cancelled, Potassium Cancelled, Chloride Cancelled, Carbon Dioxide Cancelled, Anion Gap Cancelled, BUN Cancelled, Creatinine Cancelled, Glucose Cancelled, Calcium Cancelled, Phosphorus Cancelled, Magnesium Cancelled, Total Bilirubin Cancelled, AST Cancelled, ALT Cancelled, Albumin Cancelled 03/03/18 0600: pH 7.38, pCO2 35, pO2 117 H, HCO3 20 L, ABG O2 Sat (Measured) 98.0, P-50 (Temp Corrected) N, Carboxyhemoglobin 0.1 L, O2 Concentration % .28, Respiration Rate 14, O2 Delivery Method VENT, Vent Mode A/C, Expiratory Pressure 5, Tidal Volume 500, Phlebotomy Draw Site RIGHT RADIAL 03/03/18 0400: Anion Gap 9, Estimated GFR 39 L, Glucose 167 H, Calcium 7.8 L, Phosphorus 4.1 , Magnesium 1.8, Total Bilirubin 0.6, AST 24, ALT 19, Albumin 2.5 L, CBC w Diff NO MAN DIFF REQ, RBC 2.83 L, MCV 90.7, MCH 30.0, MCHC 33.1, RDW 15.4 H, MPV 8.8, Gran % 82.0 H, Lymphocytes % 8.5 L, Monocytes % 8.5, Eosinophils % 0.5, Basophils % 0.5, Absolute Granulocytes 14.1 H, Absolute Lymphocytes 1.5, Absolute Monocytes 1.5 H, Absolute Eosinophils 0.1, Absolute Basophils 0.1 03/02/18 1000: Troponin I 0.13 *H Assessment/Plan Assessment/Plan 1. Status post mechanical fall with hip fracture and subsequent unresponsiveness/altered mental status requiring intubation for airway protection 2. Minimal troponin elevation unlikely due to acute coronary syndrome 3. History of bio AVR in 2012 4. History of TIA on Aggrenox as outpatient 5. Hypertension/hyperlipidemia/diabetes mellitus 6. Sinus bradycardia 7. History of interstitial lung disease 8. Chronic renal insufficiency Bioprosthetic aortic valve: Echocardiogram demonstrated preserved LV systolic function and normal functioning bioprosthetic aortic valve. Fall: The patient has a history of frequent falls, which have previously been attributed to mechanical etiologies, including potential mechanical etiology in her current presentation. However was questionable seizure activity as well, and neurology input has been reviewed and appreciated. Her beta tonya regimen has been held secondary to bradycardia which may as well have triggered a seizure. Hip fracture: The patient sustained a hip fracture with her current fall, and is now status post surgical repair of the same. Diastolic dysfunction: We will continue to track her volume status and attempt to maintain an overall euvolemic state. We will as well monitor her renal dysfunction closely Continue telemetry? Yes
--- NOTE | 2018-03-04 12:16 | Operative Report ---
Operative/Inv Procedure Report Surgery Date: 03/03/18 Name of Procedure: 1) Left Hip Proximal Femoral Primary Intertrochanteric And Secondary Subtrochanteric Oblique Fracture Fluoroscopically Guided Closed Reduction And Minimally Invasive Long Cephalomedullary (CM) Nail Implant Internal Fixation ( Terry) 2) Left Hip Intraoperative Fluoroscopic Assessment Of Proximal Femoral Primary Intertrochanteric And Secondary Subtrochanteric Oblique Fracture Initial Alignment And Stability As Well As Final Fracture Reduction Cephalomedullary (CM ) Nail Fixation (Terry) Pre-Operative Diagnosis: Primary Surgically Treated Diagnoses: 1) Primary Intertrochanteric Portion Of Left Hip Displaced Intertrochanteric -Subtrochanteric Long Oblique Fracture 2) Secondary Subtrochanteric Portion Of Left Hip Displaced Intertrochanteric -Subtrochanteric Long Oblique Fracture Post-Operative Diagnosis: Same as preoperative diagnosis list with the addition of: Intraoperative And Postoperative Diagnoses Relevant To Postoperative Care: 1) Left Hip Proximal Femoral Intertrochanteric And Subtrochanteric Comminuted, Displaced Fracture Potential Early Postoperative (Post-Fixation And Ufb-[id number]) Microinstability Requiring Acute Postoperative Weight Bearing, Motion And Activity Limitation In Supervised And Function-Assisted Hospital And Then Inpatient Rehabilitation Environment For Optimized Symptom Control, Minimized Fall Risk, Minimized Risk Of Fixation And Fracture Displacement, Optimized Fracture Healing, Orthodox Of Function And Ambulation And Optimized Overall Outcome As Well As For Medical And Post-Trauma Monitoring 2) Expected Requirement For Postoperative Mechanical Ventilation, Airway Management, Sedation And Close Medical Observation In ICU 4) Left Hip Acute Proximal Femoral Intertrochanteric And Subtrochanteric Fracture Internal Fixation Postprocedural Status 5) Presence Of Left Hip Proximal Femoral Intertrochanteric And Subtrochanteric Fracture Internal Fixation Long Cephalomedullary Nail, Femoral Head-Neck Lag Screw And Distal Interlocking Screw Implant Construct Estimated Blood Loss: 50ml to 100ml Surgeon/Drop Forger: MIGUEL STEWART MD - Primary Consulting Orthopaedic Surgeon Surgical Providers: Miguel Stewart M.D. - Orthopaedic Surgeon Anesthesia: general endotracheal tube Monitors: Standard general anesthesia and other perioperative monitoring was performed per anesthesia. Refer to anesthesia records for details. IV Fluids: Standard anesthesia perioperative fluid management was performed without requirement for additional or emergent fluid resuscitation. Refer to anesthesia records for details. Implants: Implants Placed: Left Hip And Femur Region Implants: [place] Gamma 3 Cephalomedullary Titanium Alloy Fracture Fixation System: Gamma 3 System Long Cephalomedullary Nail 13 mm diameter x 320 mm length x 130 degree screw-rey angle cephalomedullary nail Gamma 3 System 10.5 mm x 100 mm Cepalad Fixation Lag Screw Gamma 3 System 5.0 mm x 42.5 mm Fully Threaded Distal Nail Proximal Round Transfixion Hole Bicortical Locking Screw Gamma 3 System 5.0 mm x 42.5 mm Fully Threaded Distal Nail Distal Oval Transfixion Hole Static Bicortical Locking Screw Graft Placed: None Urine Output: Refer to anesthesia records for details. Drains: None Specimens: None Complications: None Operative/Procedure Note Note: Preoperative Holding Area Assessment/Preparation: The patient was transported intubated directly from the ICU to the operative suite and was evaluated in the operating room prior to surgery with no clinical changes or contraindications to surgical intervention documented compared to the stable postinjury and preoperative baseline deficits documented on medical admission, medical subspecialty and orthopaedic consultation and clearance evaluations. Preoperative assessment was obviously limited due to the patient's intubated and moderately sedated status however she was able to follow commands and move both distal lower extremities appropriately. The patient was mechanically ventilating well and showed no signs of respiratory distress. Since the patient could not participate in the preanesthesia confirmation ( "awake time out"), the surgical plan and site were confirmed by the surgeon, anesthesia care team and operating room nurses. The plan had also been confirmed with the patient's son (acting in his designated role as power of disability attorney and medical decision-maker) in the ICU prior to bringing her to the operating room. Preoperative paperwork was finalized. The region of the intended surgical site was cleansed, prepped and marked per protocol. The primary surgeon, anesthesia care team members, and operating room staff confirmed the patient identity, surgical procedure, and operative site as well as other clinical details (to the extent possible with the patient's confirmatory head nod response) in an initial documented preoperative confirmation (awake time out) prior to the administration of anesthesia. Surgical Procedure: The procedure was performed by Dr. Stewart who was present and served as the primary surgeon for all critical intraoperative and perioperative decisions and interventions. Set-Up/Positioning/Exposure - The patient underwent uncomplicated induction of general anesthesia followed by placement of all appropriate monitors, lines, tubes and catheters (not already in place from the ICU) without difficulty. Prophylactic antibiotic administration of 2 grams of IV Ancef based on patient body mass was performed per orthopaedic surgical operative open internal fixation fracture care protocols and was completed at least 30 and less than 60 minutes prior to making an incision. The patient was positioned supine on the operating traction table in standard fashion for a left intertrochanteric and subtrochanteric hip fracture closed reduction and minimally invasive open cephalomedullary nail internal fixation taking care to protect and stabilize the hip and lower extremity during transfer, abduct the right arm on a well padded arm board and adduct the left arm over the torso on a pillow so as to avoid positions of nerve stretch with all pressure points fully padded or suspended between pads without any direct contact at all. Optimal alignment was achieved with standard positioning and traction. This was documented on preincision intraoperative AP, lateral and oblique fluoroscopic spot views. No other change in fracture alignment, fracture fragment position or orientation was noted compared to preoperative images. The [primary] surgeon, anesthesia care team, and operating room staff again documented the patient identity, surgical procedure, and operative site as well as other clinical details in a final documented confirmation (final time out) prior to beginning the procedure. Exposure - Sterile prep and drape were performed using standard technique with DuraPrep and an Ioban antimicrobial incise curtain drape. Reference lines for the fracture, the tip of the greater trochanter, the femoral neck and shaft as well as the cephalad screw entry point at the lateral flare of the proximal femur were drawn with a marking pen along a radiopaque marker placed on the skin and projected over these structures on AP, lateral and oblique fluoroscopic views. The extent of the primary proximal incision for nail insertion was then marked and this linear incision was made longitudinally extending proximally from the tip of the greater trochanter for approximately 6 cm using a #10 scalpel blade. Hemostasis was achieved using Bovie electrocautery beginning with the skin edges of the incision and continuing throughout the procedure where necessary with settings appropriate to each progressive level. The dissection was carried down through the subcutaneous layer and the fascia was divided longitudinally in line with and throughout the length of the small cutaneous incision using Metzenbaum scissors with a blunt spreading dissection technique. Further subfascial Metzenbaum and digital blunt dissection was carried down to the superior cortical margin of the tip of the greater trochanter of the femur. Each successive layer was dissected slightly more distal than the one superficial to it taking an overall inferomedial approach to match the intended intramedullary guidewire and nail trajectory along the angle of the femoral shaft. A soft tissue protector was placed through the dissected layers down to the intended greater trochanteric cortical entry point so as to prevent muscular injury during drilling of the entry site or placement of the guide-wire and nail. A guidepin was advanced along this dissected path to the superior tip of the greater trochanter and confirmed to be at the optimal nail entry site just lateral to the most superior prominence of the greater trochanter on AP fluoroscopic view and just posterior to the greater trochanteric midpoint on the lateral view. Once the optimal entry point was confirmed, the guidepin was advanced through the cortex at that point and into the intertrochanteric region using a pin driver/refuse collector taking care to maintain optimal trajectory parallel to the intramedullary canal and avoid contact with or penetration beyond the medial femoral cortex either in the intact osseous region or at either the intertrochanteric or subtrochanteric fracture sites. The proximal starter hole for the nail was then drilled over the guidepin using a cannulated drill taking care to avoid propogation of the intertrochanteric fracture during drilling. Closed Reduction And Minimally Invasive Open Cephalomedullary Nail Internal Fixation - Under fluoroscopic guidance on orthogonal C-arm views, a ball-tipped guidewire was advanced through the proximal drill hole at the tip of the greater trohanter , past the intertrochanteric segment, across the fracture site and down the femoral intramedullary canal to a level just above the distal physeal scar and total knee arthroplasty femoral component taking care not to exit through the fracture site or to penetrate the intact femoral cortical wall particularly at the initial point of contact in the medial intertrochanteric-subtrochanteric region. With the guidewire in optimal position on AP and lateral C-arm views and the fracture adequately reduced, a ruler was used to measure the length of the guidewire within the canal from the tip of the greater trochanter per its subtraction measurement design. A left-sided nail measuring 13 mm in diameter and 320 mm in length with a 130 degree cephalomedullary angle was selected and attached to the impaction apparatus. Under intermittent fluoroscopic observation, the canal was reamed using a flexible reamer and sequential reamer tips up to a 15 mm diameter using standard technique taking care to avoid binding or excessive wall thinning within the canal. The nail was then advanced under fluoroscopic guidance to a depth and with proper rotation so as to optimize placement of the cephalic ("head-neck") screw in optimal position for proximal fixation. During the final phase of nail implantation the lower extremity traction was partially released to allow narrowing of the fracture gap and partial compression across the fracture during final nail impaction. In this final position, the nail was confirmed to be of optimal length with the proximal end below the tip of the greater trochanter and the distal end just above the level of the physeal scar. The fracture was found to be stable, well aligned and adequately reduced once the nail was fully impacted. The proximal fixation guidance arm was attached and the 130 degree guide hole was selected. Rotation of the nail was optimized on the oblique lateral fluoroscopic view matching the patient's normal reduced head-neck angle and the drill sleeve was advanced to the level of the skin and used to miguel the incision for proximal guidepin and screw placement. A small 3 mm lateral thigh incision was made at that point using a #10 scalpel blade. The dissection was carried down through the subcutaneous layer and the fascia was divided longitudinally throughout the length of the small incision using Metzenbaum scissors with a blunt spreading dissection technique. Further subfascial Metzenbaum blunt dissection was carried down to the lateral cortical surface of the femur. Each successive layer was dissected slightly more proximally than the one superficial to it taking an overall superomedial approach to match the intended guidepin and lag screw trajectory along the angle of the femoral neck. The drill sleeve was advanced through this dissected path down to the lateral femoral cortex at the metadiaphyseal junction of the proximal femur. The nail was impacted slightly to optimize the entry site for the proximal fixation screw. A partially threaded guide pin was then advanced through the drill sleeve down to the lateral femoral cortex where the longitudinal level of the guide-pin and subsequent cannulated lag screw entry point was confirmed to be optimal for proximal fixation screw placement on AP fluoroscopic view. The pin was then advanced into the central portion of the femoral head using a drill while checking trajectory and length on orthogonal C-arm views to insure straight linear pin insertion without bending and placement just inferior to the central axis of the femoral neck and head for optimal proximal osseous fixation. C-arm views were also checked to insure that the depths of the guide-pin tip was approximately 5 mm below the chondral surface of the joint. The slotted depth gauge was used to measure the appropriate screw length from the lateral femoral cortex per its subtraction measurement design. Appropriate adjustment was made to this measurement to account for any gap between the drill sleeve ( used for this subtraction measurement) and the femoral cortex. The cannulated step-cut drill bit was used to drill the proximal path for the cannulated cephalad screw with AP C-arm views monitoring the depth and trajectory of the drill bit and guide pin to insure maintenance of central path in the femoral neck and head and drill tip depth approximately 1 cm below the chondral surface without binding or advancement of the guide-pin toward the hip joint surface. Based on the previously described guidepin depth measurement, a 10.5 mm diameter x 100 mm length proximal fixation cannulated screw was selected and advanced over the guidepin, through the lateral femoral cortical opening created by the cannulated step-cut drill, and into the femoral neck and head with excellent insertional and final fixation torque. Optimal placement and final position were documented on AP, lateral and multiple oblique fluoroscopic views to insure that the proper depth was achieved with the superomedial threaded end of the screw at approximately 1 cm below the chondral surface of the joint and with the inferolateral "head" end of the screw projecting only slightly past the lateral femoral cortex for optimal fixation within the cortical drill hole. The screw alignment was confirmed to be optimal on both the AP and lateral views with trajectory parallel to and just below the central axis of the head and neck for optimal proximal fragment fixation. Care was taken to avoid any rotation of the head-neck fragment during proximal interfragmentary lag screw insertion. With proximal fixation achieved, attention was turned to the distal interlocking fixation. Lower extremity and fracture rotation were adjusted such that the fracture was optimally aligned while the rotation angle between the foot and the fluoroscopic axis of the femoral neck generally matched the normal version of the hip. Once near-anatomic rotation was achieved, traction was released and the leg gently longitudinally impacted so that the fracture was optimally reduced. The leg was slightly abducted and the C-arm was brought into a position perpendicular to the lower thigh such that the two sides of each of the distal interlocking screw holes of the nail were visualized as directly overlapping on lateral fluoroscopic image. A radioopaque marker was placed on the skin projecting over each hole on this C-arm view and the position of both distal interlock holes was marked with a marking pen. Two small longitudinal incisions were made over these two markings using a #10 scalpel blade and Metzenbaum scissors were then used to dissect through the fascia and down to the distal lateral femoral cortex using a longitudinal blunt dissection technique in line with the incision as well as the fascial and muscle fibers. The more proximal of the distal interlocking screws was placed first in the more proximal, oval-shaped, screw hole. This screw was placed as close as possible to the top of the hole given that fracture reduction was felt to be well achieved such that maximal distal fixation was preferable in this case without the need for dynamization. The tip of the drill bit was positioned over the overlapped projections of each distal nail interlock screw hole on lateral fluoroscopy, the drill trajectory was then aligned along the fluoroscopy beam and the hole was drilled using free-hand drill technique. The drill bit was confirmed to be perpendicular to the nail and through the transfixion holes on both sides on lateral fluoroscopic image taken with the beam parallel to the bit. Identical technique was used for drilling the distal round ("static") interlock hole. The drill bit was then removed and cortical depth gauge was used to measure interlocking screw length at each site per its subtraction design. AP fluoroscopy view was used to confirm optimal screw length measurement where necessary. Appropriate length fully threaded locking transfixion screws (5 mm diameter x 42.5 mm length) were then placed at each site with good insertional and final fixation torque. Optimal final position of both screws were confirmed on orthogonal C-arm views. Final optimal position of all hardware, reduction of the fracture line and alignment of all fracture fragments was confirmed on AP, lateral and oblique fluoroscopic images. Finally, the leg was rotated under fluoroscopic imaging to document stable fracture fixation and coplanar singular fracture fragment rotation without any motion across the fracture lines on dynamic radiographic evaluation and without screw penetration too close to the femoral articular surface on multiple angle projections. Final fluoroscopic images were saved and uploaded to the [facility] PACS system prior to closure. Closure/Recovery - The surgical sites were thoroughly irrigated and hemostasis was carefully achieved prior to closure. Initial counts were correct. The edges of the tensor and vastus lateralis fascia were reapproximated using simple #2-0 Vicryl sutures with a few interrupted sutures to close the fascial layer in the uppermost surgical site and single sutures at each of the three lower screw placement surgical sites. The deep and superficial subcutaneous closure was achieved with #2-0 dyed and #3-0 undyed Vicryl respectively using an inverted, interrupted technique. The cutaneous layer was closed using sheila with the skin edges everted. A standard, sterile Xeroform, fluff 6x6 gauze and ABD pad dressing was placed with good surgical site coverage and was held in place with foam tape taking care to avoid tension on the skin. All final counts were correct prior to removing the drapes. The foot section of the table was reattached and the patient's lower extremities were removed from the traction table attachments and returned to their neutral resting positions. The postoperative lower extremity neutral resting alignment was more symmetrical than had been noted preoperatively. The leg lengths were equal to gross measurement. Bilateral pulses and capillary refill were confirmed to be normal and similar to preoperative status. The patient was transferred to the hospital bed using a sliding board transfer taking care to protect and support the operative hip in neutral alignment during transfer. As per the preoperative anesthesia and medicine service plan, the patient was transported still intubated back to the ICU where she will be ventilated overnight and then assessed for weaning and possible extubation tomorrow morning. The patient remained stable throughout this process. Recovery Room Assessment: The patient was transported to the ICU in stable condition where gross neurological examination showed no deficits on initial recovery from anesthesia. Gentle log roll of the operative leg was not associated with the same discomfort that she had demonstrated preoperatively although there was still some expected mild discomfort consistent with her injury, fracture and surgery. She will follow the usual postoperative protocol for closed reduction and minimally invasive open long cephalomedullary nail internal fixation of displaced, comminuted and unstable intertrochanteric fracture with intermediate length subtrochanteric extension which is now well reduced and overall stably fixed. Unfortunately, the intrinsically unstable nature of this fracture will preclude early weightbearing and so the patient will remain toe-touch weight bearing on the left for at least the first several weeks of healing. She can be full weight bearing on the right for early mobilization out of bed and supervised pivot transfers to chair. She is an excellent candidate for inpatient nursing facility rehabilitation by orthopaedic criterion and discharge planning in preparation for transfer to this type of program as soon as her medical condition stabilizes. Discharge Disposition: Critical Care Unit CC: Terry SU,Miguel Powell
[2018-03-04 13:20] LABS: ABSOLUTE BASOPHIL COUNT 0 /CUMM (0.0-0.2); ABSOLUTE EOSINOPHIL COUNT 0.1 /CUMM (0.0-0.7); ABSOLUTE GRANULOCYTE CT 15.5 /CUMM (1.4-6.5); ABSOLUTE MONOCYTE COUNT 1.4 /CUMM (0.10-0.60); BASOPHIL % 0.2 % (0.0-2.0); EOSINOPHIL % 0.6 % (0-5); GRANULOCYTE % 85.9 % (42.2-75.2); HEMATOCRIT 23.4 % (37-47); MEAN CORPUSCULAR HGB 29.3 PG (27.0-31.0); MEAN CORPUSCULAR HGB CONC 32.4 G/DL (33.0-37.0); MEAN CORPUSCULAR VOLUME 90.6 FL (81.0-99.0); MEAN PLATELET VOLUME 8.3 FL (7.4-10.4); PLATELET COUNT 230 /CUMM (130-400); RBC DISTRIBUTION WIDTH 15.8 % (11.5-14.5); RED BLOOD CELL CT 2.58 /CUMM (4.20-5.40); WHITE BLOOD CELL COUNT 18.1 /CUMM (4.8-10.8)
[2018-03-04 16:00] VITALS: BP 117/58
[2018-03-04 22:04] LABS: ABSOLUTE BASOPHIL COUNT 0 /CUMM (0.0-0.2); ABSOLUTE EOSINOPHIL COUNT 0.2 /CUMM (0.0-0.7); ABSOLUTE MONOCYTE COUNT 1.2 /CUMM (0.10-0.60); BASOPHIL % 0.2 % (0.0-2.0); EOSINOPHIL % 1.5 % (0-5); GRANULOCYTE % 83.1 % (42.2-75.2); HEMATOCRIT 23.5 % (37-47); MEAN CORPUSCULAR HGB 29.9 PG (27.0-31.0); MEAN CORPUSCULAR HGB CONC 33.1 G/DL (33.0-37.0); MEAN CORPUSCULAR VOLUME 90.3 FL (81.0-99.0); MEAN PLATELET VOLUME 8.3 FL (7.4-10.4); PLATELET COUNT 185 /CUMM (130-400); RBC DISTRIBUTION WIDTH 15.3 % (11.5-14.5); WHITE BLOOD CELL COUNT 14.4 /CUMM (4.8-10.8)
[2018-03-05] VITALS: BP 114/62
[2018-03-05 03:20] LABS: ABSOLUTE BASOPHIL COUNT 0 /CUMM (0.0-0.2); ABSOLUTE EOSINOPHIL COUNT 0.5 /CUMM (0.0-0.7); ABSOLUTE GRANULOCYTE CT 12.1 /CUMM (1.4-6.5); ABSOLUTE MONOCYTE COUNT 1.3 /CUMM (0.10-0.60); BASOPHIL % 0.2 % (0.0-2.0); EOSINOPHIL % 3.1 % (0-5); GRANULOCYTE % 81.2 % (42.2-75.2); HEMATOCRIT 23.2 % (37-47); MEAN CORPUSCULAR HGB 29.9 PG (27.0-31.0); MEAN CORPUSCULAR HGB CONC 32.8 G/DL (33.0-37.0); MEAN PLATELET VOLUME 8.1 FL (7.4-10.4); PLATELET COUNT 197 /CUMM (130-400); RBC DISTRIBUTION WIDTH 15.2 % (11.5-14.5); RED BLOOD CELL CT 2.54 /CUMM (4.20-5.40); WHITE BLOOD CELL COUNT 14.9 /CUMM (4.8-10.8)
--- NOTE | 2018-03-05 06:07 | PN- Orthopedic ---
Subjective Subjective: EXTUBATED YESTERDAY, NO OOB YET. C/O PAIN AT HIP. REMAINS IN ICU PER MEICAL TEAM Objective Vital Signs and I&Os Vital Signs Date Time Temp Pulse Resp B/P B/P Pulse O2 O2 Flow FiO2 Mean Ox Delivery Rate 03/05 400 98 Nasal 2.0L Cannula 03/05 98 Nasal 2.0L Cannula 03/05 98.9 74 20 114/62 95 Nasal 2.0L Cannula 03/04 2025 99.4 03/04 2000 98 Nasal 2.0L Cannula 03/04 1600 99 Nasal 2.0L Cannula 03/04 1600 98.0 80 20 117/58 98 Nasal 2.0L Cannula 03/04 1600 98 Nasal 2.0L Cannula 03/04 0836 28 03/04 800 97.3 76 14 120/60 98 Ventilator 28% Intake & Output 03/05 0000 03/04 1600 03/04 0000 03/03 1600 Intake Total 1020 0330 418 8240 1018 Output Total 300 300 150 150 350 Balance 720 808 811 854 668 Intake, IV 240 9208 467 2550 958 Intake, Oral 780 0 0 Intake, Other 60 Number 0 0 0 Bowel Movements Output, 0 200 Gastric Drainage Output, Urine 300 300 150 150 150 Patient 172 lb Weight Physical Exam: GEN- NAD CARD- RRR EXT- LEFT HIP DRESSING CDI- CHANGED. 3 INCISIONS CLOSED W APOLINAR- CDI. TTP AT INCISIONS AND LEFT HIP REGION. SKIN WITHOUT ERYTHEMA/ECCHMOSIS. REDRESSED W DSD. GROSS SENSATE INTACT BL FEET, GROSS DORSI/PLANTARFLEXION INTACT. PALP LEFT DP, FEET WARM. CALVES SOFT NT BL, ALPS ON. Results Last 48 Hours of Labs: Laboratory Tests 03/05 Chemistry Sodium (137 - 145 mmol/L) 134 L 130 L Potassium (3.5 - 5.1 mmol/L) 4.5 3.9 Chloride (98 - 107 mmol/L) 105 103 Carbon Dioxide (22 - 30 mmol/L) 20 L 18 L Anion Gap (5 - 16) 9 9 BUN (7 - 17 mg/dL) 30 H 26 H Creatinine (0.5 - 1.0 mg/dL) 1.8 H 1.9 H Estimated GFR (>60 ml/min) 27 L 25 L BUN/Creatinine Ratio (7 - 25 %) 13.7 Glucose (65 - 99 mg/dL) 122 H Calcium (8.4 - 10.2 mg/dL) 7.4 L Phosphorus (2.5 - 4.5 mg/dL) 5.7 H Magnesium (1.6 - 2.3 mg/dL) 1.7 Total Bilirubin (0.2 - 1.3 mg/dL) 0.4 AST (14 - 36 U/L) 29 ALT (9 - 52 U/L) 16 Albumin (3.5 - 5.0 g/dL) 2.2 L Hematology CBC w Diff NO MAN DIFF REQ NO MAN DIFF REQ WBC (4.8 - 10.8 /CUMM) 14.9 H 14.4 H RBC (4.20 - 5.40 /CUMM) 2.54 L 2.60 L Hgb (12.0 - 16.0 G/DL) 7.6 L 7.8 L Hct (37 - 47 %) 23.2 L 23.5 L MCV (81.0 - 99.0 FL) 91.0 90.3 MCH (27.0 - 31.0 PG) 29.9 29.9 MCHC (33.0 - 37.0 G/DL) 32.8 L 33.1 RDW (11.5 - 14.5 %) 15.2 H 15.3 H Plt Count (130 - 400 /CUMM) 197 185 MPV (7.4 - 10.4 FL) 8.1 8.3 Gran % (42.2 - 75.2 %) 81.2 H 83.1 H Lymphocytes % (20.5 - 51.1 %) 7.0 L 6.8 L Monocytes % (1.7 - 9.3 %) 8.5 8.4 Eosinophils % (0 - 5 %) 3.1 1.5 Basophils % (0.0 - 2.0 %) 0.2 0.2 Absolute Granulocytes (1.4 - 6.5 /CUMM) 12.1 H 12.0 H Absolute Lymphocytes (1.2 - 3.4 /CUMM) 1.0 L 1.0 L Absolute Monocytes (0.10 - 0.60 /CUMM) 1.3 H 1.2 H Absolute Eosinophils (0.0 - 0.7 /CUMM) 0.5 0.2 Absolute Basophils (0.0 - 0.2 /CUMM) 0 0 03/04 03/04 1225 1015 Blood Gas pH (7.35 - 7.45 PH) 7.32 L pCO2 (35 - 45 TORR) 37 pO2 (80 - 100 TORR) 108 H HCO3 (21 - 28 MEQ/L) 18 L ABG O2 Sat (Measured) (>96.0 %) 97.0 P-50 (Temp Corrected) N Carboxyhemoglobin (1.5 - 5.0 %) 0.9 L O2 Concentration % 28% Temperature (97.0 - 100.0 FARH) 97.3 O2 Delivery Method VENT Vent Mode CPAP Expiratory Pressure (CMH2O/P) 5 Pressure Support (CMH2O/P) 6 Hematology CBC w Diff NO MAN DIFF REQ WBC (4.8 - 10.8 /CUMM) 18.1 H RBC (4.20 - 5.40 /CUMM) 2.58 L Hgb (12.0 - 16.0 G/DL) 7.6 L Hct (37 - 47 %) 23.4 L MCV (81.0 - 99.0 FL) 90.6 MCH (27.0 - 31.0 PG) 29.3 MCHC (33.0 - 37.0 G/DL) 32.4 L RDW (11.5 - 14.5 %) 15.8 H Plt Count (130 - 400 /CUMM) 230 MPV (7.4 - 10.4 FL) 8.3 Gran % (42.2 - 75.2 %) 85.9 H Lymphocytes % (20.5 - 51.1 %) 5.4 L Monocytes % (1.7 - 9.3 %) 7.9 Eosinophils % (0 - 5 %) 0.6 Basophils % (0.0 - 2.0 %) 0.2 Absolute Granulocytes (1.4 - 6.5 /CUMM) 15.5 H Absolute Lymphocytes (1.2 - 3.4 /CUMM) 1.0 L Absolute Monocytes (0.10 - 0.60 /CUMM) 1.4 H Absolute Eosinophils (0.0 - 0.7 /CUMM) 0.1 Absolute Basophils (0.0 - 0.2 /CUMM) 0 Miscellaneous Phlebotomy Draw Site RIGHT RADIAL 04/04 04/04 04/03 0600 0334 1800 Chemistry Sodium (137 - 145 mmol/L) 131 L Cancelled Potassium (3.5 - 5.1 mmol/L) 4.4 Cancelled Chloride (98 - 107 mmol/L) 102 Cancelled Carbon Dioxide (22 - 30 mmol/L) 20 L Cancelled Anion Gap (5 - 16) 9 Cancelled BUN (7 - 17 mg/dL) 26 H Cancelled Creatinine (0.5 - 1.0 mg/dL) 1.7 H Cancelled Estimated GFR (>60 ml/min) 29 L Glucose (65 - 99 mg/dL) 158 H Cancelled Calcium (8.4 - 10.2 mg/dL) 7.7 L Cancelled Phosphorus (2.5 - 4.5 mg/dL) 5.0 H Cancelled Magnesium (1.6 - 2.3 mg/dL) 1.7 Cancelled Total Bilirubin (0.2 - 1.3 mg/dL) 0.3 Cancelled AST (14 - 36 U/L) 27 Cancelled ALT (9 - 52 U/L) 23 Cancelled Total Protein (6.3 - 8.2 g/dL) 5.2 L Albumin (3.5 - 5.0 g/dL) 2.4 L Cancelled Triglycerides (<150 mg/dL) 124 Cholesterol (<200 MG/DL) 94 LDL Cholesterol, Calc (65 - 129 mg/dL) 31 L HDL Cholesterol (40 - 60 mg/dL) 39 L Cholesterol/HDL Ratio (0.00 - 4.23 %) 2.4 Hematology CBC w Diff Cancelled NO MAN DIFF REQ WBC (4.8 - 10.8 /CUMM) Cancelled 18.9 H RBC (4.20 - 5.40 /CUMM) Cancelled 2.63 L Hgb (12.0 - 16.0 G/DL) Cancelled 7.9 L Hct (37 - 47 %) Cancelled 23.8 L MCV (81.0 - 99.0 FL) Cancelled 90.4 MCH (27.0 - 31.0 PG) Cancelled 29.9 MCHC (33.0 - 37.0 G/DL) Cancelled 33.1 RDW (11.5 - 14.5 %) Cancelled 15.5 H Plt Count (130 - 400 /CUMM) Cancelled 219 MPV (7.4 - 10.4 FL) Cancelled 8.0 Gran % (42.2 - 75.2 %) 85.4 H Lymphocytes % (20.5 - 51.1 %) 6.0 L Monocytes % (1.7 - 9.3 %) 8.0 Eosinophils % (0 - 5 %) 0.5 Basophils % (0.0 - 2.0 %) 0.1 Absolute Granulocytes (1.4 - 6.5 /CUMM) 16.1 H Absolute Lymphocytes (1.2 - 3.4 /CUMM) 1.1 L Absolute Monocytes (0.10 - 0.60 /CUMM) 1.5 H Absolute Eosinophils (0.0 - 0.7 /CUMM) 0.1 Absolute Basophils (0.0 - 0.2 /CUMM) 0 Assessment/Plan Assessment/Plan A- POD2 SP ORIF LEFT HIP, INCISION WELL HEALING, AWAIT OOB TODAY WITH PT. EXTUBATED YESTERDAY, CONTINUES IN ICU PER MEDICAL TEAM FOR COMORBIDITIES, THOUGH IMPROVING. H&H LOW. THROUGH STABLE. ORTHOPEDICALLY STABLE. P- MEDICAL CARE PER ICU TEAM PRN PAIN MEDS DAILY DRY DRESSING CHANGE WATCH H&H, TRANSFUSE PER MEDICAL TEAM OOB, PT: TTWB LLE, FWB RLE TO PIVOT WILL DW ATTENDING
--- NOTE | 2018-03-05 07:35 | PN- Resident CRCU ---
See Addendum Subjective HPI/CRCU Issues: Overnight events: Patient received one blood transfusion yesterday evening after which her H&H came back 7.8 and 23.5. Patient's repeat H&H this morning was 7.6 and 23.2. She was given another transfusion of PRBCs. Patient is resting comfortably in bed this morning. Patient reports mild hip pain. States that she would like to get out of bed today. Patient denies any chest pain, palpitations, shortness of breath, abdominal pain, nausea/vomiting, fever/chills. Vitals: MAXIMUM TEMPERATURE 99.4, heart rate 60 to 86, normal sinus rhythm, blood pressure 116/50 (ranging from 109 to 136 systolic over 40s to 60s diastolic), saturating at 96-99% on 2 L nasal cannula Total intake:8697, output: 1200 Accu-Cheks: 148, 150, 143, 150, 176 Labs: WBC 14.9 with 81.2% granulocytes and 0 bands, H&H 7.6 and 23.2, platelet count 197 Sodium 134, potassium 4.5, chloride 105, bicarbonate 20, BUN 30, creatinine 1.8, glucose 122, calcium 7.4, albumin 2.2 --> corrected calcium: 8.8, phosphorus 5.7 , magnesium 1.7, LFTs within normal limits Objective Vital Signs & I&O Last 8 Hrs of Vitals and I&O: Vital Signs Date Time Temp Pulse Resp B/P B/P Pulse O2 O2 Flow FiO2 Mean Ox Delivery Rate 03/05 0400 98 Nasal 2.0L Cannula 03/05 98 Nasal 2.0L Cannula 03/05 0000 98.9 74 20 114/62 95 Nasal 2.0L Cannula 03/04 2025 99.4 03/04 2000 98 Nasal 2.0L Cannula 03/04 1600 99 Nasal 2.0L Cannula 03/04 1600 98.0 80 20 117/58 98 Nasal 2.0L Cannula 03/04 1600 98 Nasal 2.0L Cannula 03/04 0836 28 Intake & Output 03/05 0800 03/05 0000 Intake Total 470 1020 Output Total 600 300 Balance -130 720 Intake, Blood 300 Product Intake, IV 170 240 Intake, Oral 780 Output, Urine 600 300 Exam General Appearance: well developed/nourished, no apparent distress, alert, awake , comfortable Head: atraumatic, normal appearance Respiratory: normal breath sounds, chest non-tender, no respiratory distress, quiet respiration, lungs clear Cardiovascular: regular rate/rhythm Gastrointestinal: normal bowel sounds, soft, non-tender Extremities: no edema, dressing changed today by surgery along left hip, tenderness to palpation of left hip Cranial Nerves: normal hearing, normal speech, PERRL Skin: intact, warm/dry Skin Temp/Moisture Exam: Warm/Dry Current Medications: Current Medications Sig/Faraz Start time Last Medication Dose Route Stop Time Status Admin Acetaminophen 1,000 MG Q6H 03/04 2100 AC 03/05 N/A 1 UNIT IV 03/05 0914 0256 Acetaminophen 1,000 MG Q6H 03/04 1145 DC 03/04 N/A 1 UNIT IV 03/05 0559 1440 Aspirin 81 MG DAILY 03/02 1915 AC 03/04 PO 0821 Atorvastatin Calcium 80 MG 1700 03/02 1700 AC 03/04 PO 1630 Cefazolin Sodium 2 GM IQ8 03/04 0000 DC 03/04 N/A 1 UNIT IV 03/04 1629 1630 Dextrose/Sodium 1,000 ML Q13H 03/02 0215 DC 03/03 Chloride IV 2354 Escitalopram Oxalate 10 MG DAILY 03/02 1000 AC 03/04 PO 0821 Fentanyl Citrate 1,000 MCG Q10H 03/04 1100 DC Dextrose/Water 250 ML IV Fentanyl Citrate 1,000 MCG Q10H / 1800 DC 03/03 Dextrose/Water 250 ML IV 2317 Insulin Aspart 0 TIDAC 03/05 0800 AC SC Insulin Human Regular 0 Q6 03/02 2359 DC 03/04 SC 1638 Levetiracetam 750 MG Q12 03/02 1000 AC 03/04 Sodium Chloride 100 ML IV 2130 Morphine Sulfate 2 MG Q2P PRN 03/04 1115 AC 03/04 IV 2131 Omeprazole 40 MG DAILY AC 03/05 0700 AC PO Pantoprazole Sodium 40 MG DAILY 03/02 1000 DC 03/04 IV 0821 Sodium Chloride 500 ML BOLUS ONE 03/04 0830 DC 03/04 IV 03/04 0929 0904 Impression/Plan Impression/Problem List Impression: Patient is an 83-year-old female with past medical history of coronary artery disease, lacunar infarct in 2012 (on Aggrenox), diabetes ([id number]) , hypertension, diverticulitis, interstitial lung disease, chronic kidney disease stage III, bradycardia and dementia presenting this admission with a left intertrochanteric comminuted displaced femur fracture seen on imaging status post apparent mechanical fall. While patient was getting imaging done she had a seizure like activity vs stroke, had bradycardia to the 20s, became unresponsive with GCS fo 3 requiring intubation to protect her airway. Patient was started on keppra for seizure prophylaxis, neurology was contacted- no TPA was given. Patient was admitted to the ICU for management of the following: Respiratory: Intubated due to AMS to protect airway. Patient was trialed with CPAP and extubated successfully on 03/04. Patient is resting comfortably in no acute respiratory distress on 2L NC. - continue oxygen supplementation and wean off as tolerated - TRC - incentive spirometry Infectious: Leukocytosis Likely reactive secondary to fracture and pain. Patient remains afebrile with stable vital signs and improving WBC count with no chest xray on 03/05 showing no infiltrate. Patient received a total of 3 doses of vipul/postsurgical prophylaxis with Ancef. - continue to monitor vitals and WBC Cardiac: Bradycardia Patient's HR remains in a normal range. EKG shows first degree AV block. - cardiology consulted - beta tonya held - continue to monitor on telemetry Elevated Troponin - likely Type II OH: supply/demand mismatch in setting of recent fracture. EKG shows no significant ST or T wave changes. Troponin peaked to 0.17. ECHO on 03/02 shows LVEF of 60 to 65% with no wall motion abnormalities with a normal functioning bioprosthetic aortic valve and pulmonary htn. - cardiology consulted - beta tonya held in setting of bradycardia - continue aspirin and statin History of CAD and HTN - losartan held in setting of SATINDER and hypotension - continue statin Heme: Acute on chronic anemia - History of iron deficiency anemia, on iron supplements. Acute drop in the setting of femur fracture. H/H on 03/04 was 7.6 and 23.4. Consent from son was obtained. Patient received 1pRBC on 03/04. Repeat H/H from this morning showed an H/H of 7.6 and 23.2. Patient was given another pRBC tranfusion. - post transfusion h/h with a hemoglobin goal of > 8 - continue to monitor h/h - continue iron supplements Metabolic: Diabetes - Accuchecks - Insulin SS Hyponatremic Likely secondary to fluids, however hyponatremia is seen in 1 to 10% of people on fentanyl. Fentanyl drip was discontinued on 03/05 after patient was extubated. Patient received 500cc bolus challenge in the morning. Patient's D51/2 NS was discontinued on 03/05. Patient has started to take PO intake. Patient's Na is improving. - continue to monitor Na Ailmentary: Patient evaluated by swallow therapist. Started on a puree diet with nectar thick liquids. Diabetic diet with salt restriction. Neurologic: AMS 2/2 ?Stroke vs ?Seizure vs ?global hypoperfusion 2/2 bradycardia It is unclear if the patient had a stroke on day of admission or a seizure or if her seizure like activity was precipitated by a stroke. CTA and head CT were negative. Patient's prolactin was elevated. Patient also had severe bradycardia which may have lead to patient's unresponsiveness as well. Neurology was consulted. No tPA was given. Patient today is intubated with fentanyl drip today. Patient is responsive, following commands with no focal neurological deficits seen. Per neurology low suspicion of stroke however still recommend giving aspirin. Patient's repeat CT on 03/02 showed no acute intracranial pathology with stable age appropriate appearance. EEG was done showing abnormal/ moderate generalized slowing of conduction indicating diffuse encephalopathy but no focal/epileptiform waveform patterns. Patient is still on keppra for seizure prophylaxis. Neurology is okay with patient having surgery as there is low suspicion of stroke. Patient today is mentating at baseline with no focal neurological deficits. - Keppra being tapered off daily per neurology recommendations. Spoke to pharmacist- can be tapered by half every day. - Aspirin and Statin for suspected stroke - Aggrenox held in setting of hip fracture and intubation as it cannot be crushed. Will need to confirm with neurology if patient will continue to require aggrenox prior to discharge. - Cardiology on board. - Neurology on board. - Neurochecks - Aspiration precautions History of dementia - Patient's son is POA Nephrology: SATINDER on CKD stage III - baseline creatinine of 1.3, creatinine is 1.7 today. Patient had low urine output. Patient had a fluid bolus challenge on 03/05 with increase in urine output. Patient has had good urine output over the past 24 hours. Creatinine increased slightly however is now downtrending. - Continue to monitor - Strict I/O - Avoid nephrotoxic agents - Hold losartan for now Ortho: Left communuted and displaced femur fracture, S/P Left ORIF POD# 1 Per cardiology patient is at high risk given her risk factors however at this point patient is medically optimized for surgery. Per neurology patient is okay for surgery in setting of presumed seizure currently on antiepileptic medication and with no focal neurological finding with low suspicion of stroke with two head CTs with no acute intracranial pathology or indications of evolving stroke. AP and lateral hip xrays ordered per request of ortho - show femur fracture. Patient had a left ORIF on 03/03 in the evening. Patient was seen by ortho with surgical dressing changed. Patient was mobilized by PT today from bed to chair. Patient completed surgical antibiotic prophylaxis. - Ortho is on board - Further management of left hip per ortho - Dry daily dressing changes per ortho - PT onboard. - Pain control with tylenol and morphine - Patient will require DVT PPx per ortho for 6 weeks from surgery with Lovenox. Patient will require renal dosing. DVT PPx: ALPs GI PPx: Protonix Problem List: 1. Status post-operative repair of closed fracture of left hip 2. Fracture of left hip 3. SATINDER (acute kidney injury) Pain Ratin Tomorrow's Labs & Rationales: cbc - anemia icu bundle Plan DVT/Prophylaxis: mechanical
[2018-03-05 08:00] VITALS: BP 120/60
--- NOTE | 2018-03-05 11:13 | PN- Cardiology ---
Subjective Subjective: Telemetry reviewed. Sinus rhythm throughout. Minimum heart rate has been in the 50s. No cardiac issues. Objective Vital Signs and I&Os Vital Signs Date Time Temp Pulse Resp B/P B/P Pulse O2 O2 Flow FiO2 Mean Ox Delivery Rate 03/05 800 98 Nasal 1.5L Cannula 03/05 800 97.6 70 20 120/60 98 Room Air 03/05 0400 98 Nasal 2.0L Cannula 03/05 0000 98 Nasal 2.0L Cannula 03/05 0000 98.9 74 20 114/62 95 Nasal 2.0L Cannula 03/04 2025 99.4 03/04 2000 98 Nasal 2.0L Cannula 03/04 1600 99 Nasal 2.0L Cannula 03/04 1600 98.0 80 20 117/58 98 Nasal 2.0L Cannula 03/04 1600 98 Nasal 2.0L Cannula Intake & Output 03/05 1600 03/05 0803/05 0000 03/04 1600 03/04 0803/04 0000 Intake Total 470 1020 1020 280 7852 Output Total 600 300 300 150 150 Balance -130 720 808 811 854 Intake, Blood 300 Product Intake, IV 507 848 3397 961 1004 Intake, Oral 780 0 0 Number 0 0 Bowel Movements Output, 0 Gastric Drainage Output, Urine 600 300 300 150 150 Patient 172 lb Weight Physical Exam: A general exam patient comfortable but confused Head normocephalic atraumatic Eyes sclera anicteric conjunctiva showed no pallor extraocular muscles were normal Neck no jugular venous distention no thyroid masses no palpable nodes Chest lungs were clear bilaterally Heart regular rhythm with a grade 2/6 ejection systolic murmur Abdomen soft no organomegaly bowel sounds normal next and extremities no clubbing cyanosis or edema recent postop hip fracture Neurological no gross motor or sensory deficit Current Medications: Current Medications Sig/Faraz Start time Last Medication Dose Route Stop Time Status Admin Acetaminophen 1,000 MG Q6H 03/04 2100 DC 03/05 N/A 1 UNIT IV 03/05 0914 1051 Acetaminophen 1,000 MG Q6H 03/04 1145 DC 03/04 N/A 1 UNIT IV 03/05 0559 1440 Aspirin 81 MG DAILY 03/02 1915 AC 03/05 PO 1051 Atorvastatin Calcium 80 MG 1700 03/02 1700 AC 03/04 PO 1630 Cefazolin Sodium 2 GM IQ8 03/04 0000 DC 03/04 N/A 1 UNIT IV 03/04 1629 1630 Cyanocobalamin 1,000 MCG DAILY 03/05 1000 AC 03/05 PO 1054 Dextrose/Sodium 1,000 ML Q13H 03/02 0215 DC 03/03 Chloride IV 2354 Docusate Sodium 100 MG DAILY 03/05 1000 AC 03/05 PO 1054 Donepezil HCl 10 MG QPM 03/05 2200 AC PO Escitalopram Oxalate 10 MG DAILY 03/02 1000 AC 03/05 PO 1052 Fentanyl Citrate 1,000 MCG Q10H 03/04 1100 DC Dextrose/Water 250 ML IV Ferrous Sulfate 325 MG DAILY 03/05 1000 AC 03/05 PO 1054 Insulin Aspart 0 TIDAC 03/05 0800 AC SC Insulin Human Regular 0 Q6 03/02 2359 DC 03/04 SC 1638 Levetiracetam 500 MG BID 03/05 1000 AC PO Levetiracetam 750 MG Q12 03/02 1000 DC 03/04 Sodium Chloride 100 ML IV 2130 Magnesium Oxide 400 MG ONE ONE 03/05 0845 DC 03/05 PO 03/05 0846 1051 Morphine Sulfate 2 MG Q2P PRN 03/05 0945 AC IV Morphine Sulfate 2 MG Q2P PRN 03/04 1115 DC 03/04 IV 2131 Omeprazole 40 MG DAILY AC 03/05 0700 AC 03/05 PO 1052 Oxycodone HCl 10 MG Q12 03/05 1000 CAN PO Oxycodone/ 1 TAB Q4-6 PRN PRN 03/05 0945 CAN Acetaminophen PO Pantoprazole Sodium 40 MG DAILY 03/02 1000 DC 03/04 IV 0821 Results Last 48 Hrs of Labs/Mics: Laboratory Tests 03/05/18 1000: Sodium Cancelled, Potassium Cancelled, Chloride Cancelled, Carbon Dioxide Cancelled, Anion Gap Cancelled, BUN Cancelled, Creatinine Cancelled, BUN/ Creatinine Ratio Cancelled 03/05/18 0300: Anion Gap 9, Estimated GFR 27 L, Glucose 122 H, Calcium 7.4 L, Phosphorus 5.7 H, Magnesium 1.7, Total Bilirubin 0.4, AST 29, ALT 16, Albumin 2.2 L, CBC w Diff NO MAN DIFF REQ, RBC 2.54 L, MCV 91.0, MCH 29.9, MCHC 32.8 L, RDW 15.2 H , MPV 8.1, Gran % 81.2 H, Lymphocytes % 7.0 L, Monocytes % 8.5, Eosinophils % 3.1, Basophils % 0.2, Absolute Granulocytes 12.1 H, Absolute Lymphocytes 1.0 L , Absolute Monocytes 1.3 H, Absolute Eosinophils 0.5, Absolute Basophils 0 03/04/18 2045: Anion Gap 9, Estimated GFR 25 L, BUN/Creatinine Ratio 13.7, CBC w Diff NO MAN DIFF REQ, RBC 2.60 L, MCV 90.3, MCH 29.9, MCHC 33.1, RDW 15.3 H, MPV 8.3, Gran % 83.1 H, Lymphocytes % 6.8 L, Monocytes % 8.4, Eosinophils % 1.5, Basophils % 0.2, Absolute Granulocytes 12.0 H, Absolute Lymphocytes 1.0 L, Absolute Monocytes 1.2 H, Absolute Eosinophils 0.2, Absolute Basophils 0 03/04/18 1225: CBC w Diff NO MAN DIFF REQ, RBC 2.58 L, MCV 90.6, MCH 29.3, MCHC 32.4 L, RDW 15.8 H, MPV 8.3, Gran % 85.9 H, Lymphocytes % 5.4 L, Monocytes % 7.9, Eosinophils % 0.6, Basophils % 0.2, Absolute Granulocytes 15.5 H, Absolute Lymphocytes 1.0 L, Absolute Monocytes 1.4 H, Absolute Eosinophils 0.1, Absolute Basophils 0 03/04/18 1015: pH 7.32 L, pCO2 37, pO2 108 H, HCO3 18 L, ABG O2 Sat (Measured) 97.0, P-50 ( Temp Corrected) N, Carboxyhemoglobin 0.9 L, O2 Concentration % 28%, Temperature 97.3, O2 Delivery Method VENT, Vent Mode CPAP, Expiratory Pressure 5, Pressure Support 6, Phlebotomy Draw Site RIGHT RADIAL 03/04/18 0600: CBC w Diff Cancelled, WBC Cancelled, RBC Cancelled, Hgb Cancelled, Hct Cancelled , MCV Cancelled, MCH Cancelled, MCHC Cancelled, RDW Cancelled, Plt Count Cancelled, MPV Cancelled 03/04/18 0334: Anion Gap 9, Estimated GFR 29 L, Glucose 158 H, Calcium 7.7 L, Phosphorus 5.0 H, Magnesium 1.7, Total Bilirubin 0.3, AST 27, ALT 23, Total Protein 5.2 L, Albumin 2.4 L, Triglycerides 124, Cholesterol 94, LDL Cholesterol, Calc 31 L, HDL Cholesterol 39 L, Cholesterol/HDL Ratio 2.4, CBC w Diff NO MAN DIFF REQ, RBC 2.63 L, MCV 90.4, MCH 29.9, MCHC 33.1, RDW 15.5 H, MPV 8.0, Gran % 85.4 H , Lymphocytes % 6.0 L, Monocytes % 8.0, Eosinophils % 0.5, Basophils % 0.1, Absolute Granulocytes 16.1 H, Absolute Lymphocytes 1.1 L, Absolute Monocytes 1.5 H, Absolute Eosinophils 0.1, Absolute Basophils 0 03/03/18 1800: Sodium Cancelled, Potassium Cancelled, Chloride Cancelled, Carbon Dioxide Cancelled, Anion Gap Cancelled, BUN Cancelled, Creatinine Cancelled, Glucose Cancelled, Calcium Cancelled, Phosphorus Cancelled, Magnesium Cancelled, Total Bilirubin Cancelled, AST Cancelled, ALT Cancelled, Albumin Cancelled Assessment/Plan Assessment/Plan In summary this 83-year-old female has the following problems 1. Status post mechanical fall with hip fracture and subsequent unresponsiveness/altered mental status requiring intubation for airway protection 2. Minimal troponin elevation unlikely due to acute coronary syndrome 3. History of bio AVR in 2012 4. History of TIA on Aggrenox as outpatient 5. Hypertension/hyperlipidemia/diabetes mellitus 6. Sinus bradycardia 7. History of interstitial lung disease 8. Chronic renal insufficienc She is a properly functioning bioprosthetic valve by echo. Her beta blockers are being held. I would continue to monitor her in order to see if any documented bradycardia that meets guidelines for pacemaker is noted. Continue telemetry? No
[2018-03-05 12:04] LABS: ABSOLUTE BASOPHIL COUNT 0 /CUMM (0.0-0.2); ABSOLUTE EOSINOPHIL COUNT 0.4 /CUMM (0.0-0.7); ABSOLUTE GRANULOCYTE CT 13.6 /CUMM (1.4-6.5); ABSOLUTE LYMPH COUNT 0.5 /CUMM (1.2-3.4); ABSOLUTE MONOCYTE COUNT 0.9 /CUMM (0.10-0.60); BASOPHIL % 0.2 % (0.0-2.0); EOSINOPHIL % 2.6 % (0-5); HEMATOCRIT 27.8 % (37-47); MEAN CORPUSCULAR HGB 30.3 PG (27.0-31.0); MEAN CORPUSCULAR HGB CONC 33.1 G/DL (33.0-37.0); MEAN CORPUSCULAR VOLUME 91.5 FL (81.0-99.0); MEAN PLATELET VOLUME 8.3 FL (7.4-10.4); PLATELET COUNT 212 /CUMM (130-400); RBC DISTRIBUTION WIDTH 15.1 % (11.5-14.5); RED BLOOD CELL CT 3.04 /CUMM (4.20-5.40); WHITE BLOOD CELL COUNT 15.4 /CUMM (4.8-10.8)
[2018-03-05 12:34] LABS: GRANULOCYTE % 88.3 % (42.2-75.2)
--- NOTE | 2018-03-05 14:16 | RADIOLOGY REPORT ---
EXAMINATION: XR MODIFIED BARIUM SWALLOW CLINICAL INFORMATION: Dysphagia. Status post intubation. Coughing with food. COMPARISON: None TECHNIQUE: Modified barium swallow study was performed with the speech therapist. FINDINGS: No evidence of any aspiration or penetration noted. Early spillage however is noted with honey and thin liquid. FLUOROSCOPY TIME: 1 minute 51 seconds. NUMBER OF IMAGES: 35 images IMPRESSION: No evidence of any aspiration or penetration. Please refer to the separate report by the speech therapist for further full details.
[2018-03-05 16:00] VITALS: BP 124/60
[2018-03-05 19:57] VITALS: BP 126/74
[2018-03-06] VITALS: BP 132/60
[2018-03-06 04:20] LABS: ABSOLUTE BASOPHIL COUNT 0.1 /CUMM (0.0-0.2); ABSOLUTE EOSINOPHIL COUNT 0.5 /CUMM (0.0-0.7); ABSOLUTE GRANULOCYTE CT 11.2 /CUMM (1.4-6.5); ABSOLUTE MONOCYTE COUNT 1.2 /CUMM (0.10-0.60); BASOPHIL % 0.7 % (0.0-2.0); EOSINOPHIL % 3.2 % (0-5); GRANULOCYTE % 80.3 % (42.2-75.2); HEMATOCRIT 28.4 % (37-47); MEAN CORPUSCULAR HGB 30.2 PG (27.0-31.0); MEAN CORPUSCULAR HGB CONC 33.2 G/DL (33.0-37.0); MEAN CORPUSCULAR VOLUME 90.9 FL (81.0-99.0); MEAN PLATELET VOLUME 8.3 FL (7.4-10.4); PLATELET COUNT 233 /CUMM (130-400); RBC DISTRIBUTION WIDTH 15.5 % (11.5-14.5); RED BLOOD CELL CT 3.12 /CUMM (4.20-5.40); WHITE BLOOD CELL COUNT 13.9 /CUMM (4.8-10.8)
--- NOTE | 2018-03-06 07:44 | PN- Housestaff ---
Rosalio SU,Alma 03/06/18 0744: Subjective Follow-up For: Hip Fracture s/p ORIF AMS Bradycardia SATINDER on CKD Subjective: Patient was seen and examined today. Patient reports mild hip pain. Patient states that she does not feel well and would like to leave. Patient this morning is asking about washing her hair and brushing her teeth. Patient denies any other symptoms at this time. Denies chest pain, shortness of breath, abdominal pain, nausea/vomiting. Patient has not had a bowel movement since her surgery. No acute events overnight. Review of Systems Constitutional: Reports: see HPI. Objective Last 24 Hrs of Vital Signs/I&O Vital Signs Date Time Temp Pulse Resp B/P B/P Pulse O2 O2 Flow FiO2 Mean Ox Delivery Rate 03/06 08 98.3 62 16 154/70 97 Room Air 04 0000 92 Room Air / 0000 97.4 69 13 132/60 92 Room Air / 1957 99.0 76 22 126/74 91 /05 1600 98.7 70 20 124/60 93 Room Air 05 1239 Nasal 1.5L Cannula 03/05 1211 Room Air Room Air 05 1110 Nasal 1.5L Cannula Intake & Output 03/06 1600 / 0800 04/ 0000 Intake Total 0 0 Output Total 300 380 Balance -300 -380 Intake, IV 0 Intake, Oral 0 0 Number 0 0 Bowel Movements Output, Urine 300 380 Physical Exam General Appearance: Alert, Cooperative, No Acute Distress Other Physical Findings: Head: atraumatic, normal appearance Respiratory: normal breath sounds, chest non-tender, no respiratory distress, quiet respiration, lungs clear Cardiovascular: regular rate/rhythm Gastrointestinal: normal bowel sounds, soft, non-tender Extremities: no edema, dressing changed today by surgery along left hip, tenderness to palpation of left hip Cranial Nerves: normal hearing, normal speech, PERRL Skin: intact, warm/dry Skin Temp/Moisture Exam: Warm/Dry Current Medications: Current Medications Sig/Faraz Start time Last Medication Dose Route Stop Time Status Admin Aspirin 81 MG DAILY 03/02 1915 AC 03/05 PO 1051 Atorvastatin Calcium 80 MG 1700 03/02 1700 AC 04 PO 1642 Cyanocobalamin 1,000 MCG DAILY 03/05 1000 AC 04 PO 1054 Docusate Sodium 100 MG DAILY 03/05 1000 AC 03/05 PO 1054 Donepezil HCl 10 MG QPM 03/05 2200 AC 03/05 PO 2022 Escitalopram Oxalate 10 MG DAILY 03/02 1000 AC 03/05 PO 105 Ferrous Sulfate 325 MG DAILY 03/05 1000 AC 03/05 PO 105 Heparin Sodium 5,000 UNIT Q8 03/05 1400 AC 03/06 (Porcine) SC 0557 Insulin Aspart 0 TIDAC 03/05 0800 AC 03/05 SC 1157 Levetiracetam 500 MG BID 03/05 1000 AC 03/05 PO 2022 Morphine Sulfate 2 MG Q2P PRN 03/05 0945 AC 03/05 IV 1716 Omeprazole 40 MG DAILY AC 03/05 0700 AC 03/06 PO 0557 Oxycodone HCl 5 MG ONCE ONE 03/05 1145 DC 03/05 PO 03/05 1146 1137 Oxycodone/ 1 TAB Q4P PRN 03/05 1930 AC 03/06 Acetaminophen PO 0046 Last 24 Hrs of Lab/Gucci Results Last 24 Hrs of Labs/Mics: Laboratory Tests 03/06/18 0341: Anion Gap 8, Estimated GFR 29 L, Glucose 123 H, Calcium 8.1 L, Phosphorus 4.3 , Magnesium 1.8, Total Bilirubin 0.6, AST 22, ALT 20, Albumin 2.3 L, CBC w Diff NO MAN DIFF REQ, RBC 3.12 L, MCV 90.9, MCH 30.2, MCHC 33.2, RDW 15.5 H, MPV 8.3, Gran % 80.3 H, Lymphocytes % 7.5 L, Monocytes % 8.3, Eosinophils % 3.2, Basophils % 0.7, Absolute Granulocytes 11.2 H, Absolute Lymphocytes 1.0 L, Absolute Monocytes 1.2 H, Absolute Eosinophils 0.5, Absolute Basophils 0.1 03/05/18 1116: Anion Gap 11, Estimated GFR 25 L, Glucose 193 H, Calcium 8.0 L, Phosphorus 5.0 H, Magnesium 1.8, Total Bilirubin 0.6, AST 27, ALT 19, Albumin 2.3 L, CBC w Diff NO MAN DIFF REQ, RBC 3.04 L, MCV 91.5, MCH 30.3, MCHC 33.1, RDW 15.1 H, MPV 8.3, Gran % 88.3 H, Lymphocytes % 3.1 L, Monocytes % 5.8, Eosinophils % 2.6, Basophils % 0.2, Absolute Granulocytes 13.6 H, Absolute Lymphocytes 0.5 L , Absolute Monocytes 0.9 H, Absolute Eosinophils 0.4, Absolute Basophils 0 03/05/18 1000: Hemoglobin A1c 5.9 H 03/05/18 1000: Sodium Cancelled, Potassium Cancelled, Chloride Cancelled, Carbon Dioxide Cancelled, Anion Gap Cancelled, BUN Cancelled, Creatinine Cancelled, BUN/ Creatinine Ratio Cancelled Lines/Diet/Fluids Catheters/Tubes: [email or web address] Assessment/Plan Assessment: Patient is an 83-year-old female with past medical history of coronary artery disease, lacunar infarct in 2013 (on Aggrenox), diabetes ([id number]) , hypertension, diverticulitis, interstitial lung disease, chronic kidney disease stage III, bradycardia and dementia presenting this admission with a left intertrochanteric comminuted displaced femur fracture seen on imaging status post apparent mechanical fall. While patient was getting imaging done she had a seizure like activity vs stroke, had bradycardia to the 20s, became unresponsive with GCS fo 3 requiring intubation to protect her airway. Patient was started on keppra for seizure prophylaxis, neurology was contacted- no TPA was given. Patient was admitted to the ICU for management of the following: Respiratory: Intubated due to AMS to protect airway. Patient was trialed with CPAP and extubated successfully on 03/04. Patient is resting comfortably in no acute respiratory distress weaned off oxygen today. - TRC - incentive spirometry Infectious: Leukocytosis Likely reactive secondary to fracture and pain. Patient remains afebrile with stable vital signs and improving WBC count with no chest xray on 03/05 showing no infiltrate. Patient received a total of 3 doses of vipul/postsurgical prophylaxis with Ancef. - WBC improving Cardiac: Bradycardia Patient's HR remains in a normal range. EKG shows first degree AV block. - cardiology consulted - discontinue beta tonya - follow up with cardiology on discharge - resume losartan per cardiology Elevated Troponin - likely Type II NM: supply/demand mismatch in setting of recent fracture. EKG shows no significant ST or T wave changes. Troponin peaked to 0.17. ECHO on 03/02 shows LVEF of 60 to 65% with no wall motion abnormalities with a normal functioning bioprosthetic aortic valve and pulmonary htn. - cardiology consulted - beta tonya held in setting of bradycardia - continue aspirin and statin History of CAD and HTN - resume losartan - continue statin Heme: Acute on chronic anemia - History of iron deficiency anemia, on iron supplements. Acute drop in the setting of femur fracture. H/H on 03/04 was 7.6 and 23.4. Consent from son was obtained. Patient received 1pRBC on 03/04. Repeat H/H from this morning showed an H/H of 7.6 and 23.2. Patient was given another pRBC tranfusion. - post transfusion h/h with a hemoglobin goal of > 8 - continue to monitor h/h - continue iron supplements Metabolic: Diabetes - Accuchecks - Insulin SS - discontinued levemir outpatient. Patient Hgb A1c is 5.9. Continue sliding scale Hyponatremic Likely secondary to fluids, however hyponatremia is seen in 1 to 10% of people on fentanyl. Fentanyl drip was discontinued on 03/05 after patient was extubated. Patient received 500cc bolus challenge in the morning. Patient's D51/2 NS was discontinued on 03/05. Patient has started to take PO intake. Patient's Na is improving. - continue to monitor Na Ailmentary: Patient evaluated by swallow therapist. Started on a puree diet with nectar thick liquids. Diabetic diet with salt restriction. Neurologic: AMS 2/2 ?Stroke vs ?Seizure vs ?global hypoperfusion 2/2 bradycardia It is unclear if the patient had a stroke on day of admission or a seizure or if her seizure like activity was precipitated by a stroke. CTA and head CT were negative. Patient's prolactin was elevated. Patient also had severe bradycardia which may have lead to patient's unresponsiveness as well. Neurology was consulted. No tPA was given. Patient today is intubated with fentanyl drip today. Patient is responsive, following commands with no focal neurological deficits seen. Per neurology low suspicion of stroke however still recommend giving aspirin. Patient's repeat CT on 03/02 showed no acute intracranial pathology with stable age appropriate appearance. EEG was done showing abnormal/ moderate generalized slowing of conduction indicating diffuse encephalopathy but no focal/epileptiform waveform patterns. Patient is still on keppra for seizure prophylaxis. Neurology is okay with patient having surgery as there is low suspicion of stroke. Patient today is mentating at baseline with no focal neurological deficits. - Keppra 500mg BID daily. Will see her neurologist upon discharge for continued monitoring and tapering. - Aspirin and Statin for suspected stroke - Cardiology on board. - Neurology on board. - Neurochecks - Aspiration precautions History of dementia - Patient's son is POA Nephrology: SATINDER on CKD stage III - baseline creatinine of 1.3, creatinine is 1.7 today. Patient had low urine output. Patient had a fluid bolus challenge on 03/05 with increase in urine output. Patient has had good urine output over the past 24 hours. Creatinine increased slightly however is now downtrending. - Continue to monitor - Strict I/O - Avoid nephrotoxic agents Ortho: Left communuted and displaced femur fracture, S/P Left ORIF POD# 1 Per cardiology patient is at high risk given her risk factors however at this point patient is medically optimized for surgery. Per neurology patient is okay for surgery in setting of presumed seizure currently on antiepileptic medication and with no focal neurological finding with low suspicion of stroke with two head CTs with no acute intracranial pathology or indications of evolving stroke. AP and lateral hip xrays ordered per request of ortho - show femur fracture. Patient had a left ORIF on 03/03 in the evening. Patient was seen by ortho with surgical dressing changed. Patient was mobilized by PT today from bed to chair. Patient completed surgical antibiotic prophylaxis. - Ortho is on board - Further management of left hip per ortho - Dry daily dressing changes per ortho - PT onboard. - Pain control with tylenol and morphine - Patient will require DVT PPx per ortho for 6 weeks from surgery with Lovenox. Patient started on lovenox today based on renal dosing. DVT PPx: ALPs, Lovenox GI PPx: Protonix Problem List: 1. Status post-operative repair of closed fracture of left hip Pain Ratin Pain Location: left hip Pain Goal: Pain 4 or less Pain Plan: tylenol percocet Tomorrow's Labs & Rationales: none - discharge today Naif Sahni MD 03/06/18 1603: Attending MD Review Statement Attending Statement Attending MD Statement: examined this patient, discuss w/resident/PA/STACK CLERK, agreed w/resident/PA/STACK CLERK, discussed with family, reviewed EMR data (avail), discussed with nursing, discussed with case mgmt, amended to note Attending Assessment/Plan: The patient was seen and discussed with house staff. Agree with plan of care- patient may be transferred to [facility] Awaiting copy of operative report from ORIF. May discharge on Keppra and with Lovenox. Follow H/H at [facility] and will consider transition to po anti-coagulation there (?Coumadin vs renal dose of apixaban).
[2018-03-06 08:00] VITALS: BP 154/70
--- NOTE | 2018-03-06 10:10 | PN- Cardiology ---
Subjective Subjective: Resting comfortably. Still with some mild hip pain but otherwise feels well. No chest pain or dyspnea. Objective Vital Signs and I&Os Vital Signs Date Time Temp Pulse Resp B/P B/P Pulse O2 O2 Flow FiO2 Mean Ox Delivery Rate 03/06 800 98.3 62 16 154/70 97 Room Air 03/06 0000 92 Room Air 03/06 0000 97.4 69 13 132/60 92 Room Air 03/05 1957 99.0 76 22 126/74 91 03/05 1600 98.7 70 20 124/60 93 Room Air 03/05 1239 Nasal 1.5L Cannula 03/05 1211 Room Air Room Air 03/05 1110 Nasal 1.5L Cannula Intake & Output 03/06 1600 03/06 0803/06 0000 03/05 1600 03/05 0803/05 0000 Intake Total 0 0 5440 084 5846 Output Total 300 380 400 600 300 Balance -300 -380 750 -130 720 Intake, Blood 350 300 Product Intake, IV 0 170 240 Intake, Oral 0 0 800 780 Number 0 0 Bowel Movements Output, Urine 300 380 400 600 300 Physical Exam: General: no apparent distress. Alert. Eyes: No obvious scleral icterus. HEENT: No jugular venous distention or abnormal jugular venous pulsations. Cardiovascular: Normal intensity S1/S2. 1 out of 6 systolic murmur Respiratory: Lungs clear to auscultation bilaterally. Abdomen: Soft, nontender with no guarding or rebound tenderness. Musculoskeletal: No clubbing or cyanosis noted Skin: warm Neurologic: No gross focal deficits noted. Current Medications: Current Medications Sig/Faraz Start time Last Medication Dose Route Stop Time Status Admin Aspirin 81 MG DAILY 03/02 1915 AC 03/06 PO 0953 Atorvastatin Calcium 80 MG 1700 03/02 1700 AC 03/05 PO 1642 Cyanocobalamin 1,000 MCG DAILY 03/05 1000 AC 03/06 PO 0954 Docusate Sodium 100 MG DAILY 03/05 1000 AC 03/06 PO 0953 Donepezil HCl 10 MG QPM 03/05 2200 AC 03/05 PO 202 Escitalopram Oxalate 10 MG DAILY 03/02 1000 AC 03/06 PO 0954 Ferrous Sulfate 325 MG DAILY 03/05 1000 AC 03/06 PO 0953 Heparin Sodium 5,000 UNIT Q8 03/05 1400 AC 03/06 (Porcine) SC 0557 Insulin Aspart 0 TIDAC 03/05 0800 03/05 SC 1157 Levetiracetam 500 MG BID 03/05 1000 AC 03/06 PO 0954 Morphine Sulfate 2 MG Q2P PRN 03/05 0945 AC 03/05 IV 1716 Omeprazole 40 MG DAILY AC 03/05 0700 AC 03/06 PO 0557 Oxycodone HCl 5 MG ONCE ONE 03/05 1145 DC 03/05 PO 03/05 1146 1137 Oxycodone/ 1 TAB Q4P PRN 03/05 1930 AC 03/06 Acetaminophen PO 0955 Results Last 48 Hrs of Labs/Mics: Laboratory Tests 03/06/18 0341: Anion Gap 8, Estimated GFR 29 L, Glucose 123 H, Calcium 8.1 L, Phosphorus 4.3 , Magnesium 1.8, Total Bilirubin 0.6, AST 22, ALT 20, Albumin 2.3 L, CBC w Diff NO MAN DIFF REQ, RBC 3.12 L, MCV 90.9, MCH 30.2, MCHC 33.2, RDW 15.5 H, MPV 8.3, Gran % 80.3 H, Lymphocytes % 7.5 L, Monocytes % 8.3, Eosinophils % 3.2, Basophils % 0.7, Absolute Granulocytes 11.2 H, Absolute Lymphocytes 1.0 L, Absolute Monocytes 1.2 H, Absolute Eosinophils 0.5, Absolute Basophils 0.1 03/05/18 1116: Anion Gap 11, Estimated GFR 25 L, Glucose 193 H, Calcium 8.0 L, Phosphorus 5.0 H, Magnesium 1.8, Total Bilirubin 0.6, AST 27, ALT 19, Albumin 2.3 L, CBC w Diff NO MAN DIFF REQ, RBC 3.04 L, MCV 91.5, MCH 30.3, MCHC 33.1, RDW 15.1 H, MPV 8.3, Gran % 88.3 H, Lymphocytes % 3.1 L, Monocytes % 5.8, Eosinophils % 2.6, Basophils % 0.2, Absolute Granulocytes 13.6 H, Absolute Lymphocytes 0.5 L , Absolute Monocytes 0.9 H, Absolute Eosinophils 0.4, Absolute Basophils 0 03/05/18 1000: Hemoglobin A1c 5.9 H 03/05/18 1000: Sodium Cancelled, Potassium Cancelled, Chloride Cancelled, Carbon Dioxide Cancelled, Anion Gap Cancelled, BUN Cancelled, Creatinine Cancelled, BUN/ Creatinine Ratio Cancelled 03/05/18 0300: Anion Gap 9, Estimated GFR 27 L, Glucose 122 H, Calcium 7.4 L, Phosphorus 5.7 H, Magnesium 1.7, Total Bilirubin 0.4, AST 29, ALT 16, Albumin 2.2 L, CBC w Diff NO MAN DIFF REQ, RBC 2.54 L, MCV 91.0, MCH 29.9, MCHC 32.8 L, RDW 15.2 H , MPV 8.1, Gran % 81.2 H, Lymphocytes % 7.0 L, Monocytes % 8.5, Eosinophils % 3.1, Basophils % 0.2, Absolute Granulocytes 12.1 H, Absolute Lymphocytes 1.0 L , Absolute Monocytes 1.3 H, Absolute Eosinophils 0.5, Absolute Basophils 0 03/04/18 204: Anion Gap 9, Estimated GFR 25 L, BUN/Creatinine Ratio 13.7, CBC w Diff NO MAN DIFF REQ, RBC 2.60 L, MCV 90.3, MCH 29.9, MCHC 33.1, RDW 15.3 H, MPV 8.3, Gran % 83.1 H, Lymphocytes % 6.8 L, Monocytes % 8.4, Eosinophils % 1.5, Basophils % 0.2, Absolute Granulocytes 12.0 H, Absolute Lymphocytes 1.0 L, Absolute Monocytes 1.2 H, Absolute Eosinophils 0.2, Absolute Basophils 0 03/04/18 1225: CBC w Diff NO MAN DIFF REQ, RBC 2.58 L, MCV 90.6, MCH 29.3, MCHC 32.4 L, RDW 15.8 H, MPV 8.3, Gran % 85.9 H, Lymphocytes % 5.4 L, Monocytes % 7.9, Eosinophils % 0.6, Basophils % 0.2, Absolute Granulocytes 15.5 H, Absolute Lymphocytes 1.0 L, Absolute Monocytes 1.4 H, Absolute Eosinophils 0.1, Absolute Basophils 0 03/04/18 1015: pH 7.32 L, pCO2 37, pO2 108 H, HCO3 18 L, ABG O2 Sat (Measured) 97.0, P-50 ( Temp Corrected) N, Carboxyhemoglobin 0.9 L, O2 Concentration % 28%, Temperature 97.3, O2 Delivery Method VENT, Vent Mode CPAP, Expiratory Pressure 5, Pressure Support 6, Phlebotomy Draw Site RIGHT RADIAL Recent Imaging Studies: Telemetry tracings are personally reviewed and shows sinus rhythm with short SVT burst Assessment/Plan Assessment/Plan 1. Status post mechanical fall with hip fracture and subsequent unresponsiveness/altered mental status requiring intubation for airway protection; status post ORIF 2. Minimal troponin elevation unlikely due to acute coronary syndrome 3. History of bio AVR in 2012 4. History of TIA on Aggrenox as outpatient 5. Hypertension/hyperlipidemia/diabetes mellitus 6. Sinus bradycardia 7. History of interstitial lung disease 8. Chronic renal insufficiency Doing well and remains hemodynamically stable. No significant bradycardia arrhythmia or sustained tachyarrhythmia noted on telemetry. Bioprosthetic aortic valve function was grossly normal by echocardiogram. Can likely resume her ARB. Dayday Peña MD [facility] Continue telemetry? No
--- NOTE | 2018-03-06 11:20 | Discharge Summary ---
Visit Information Visit Dates Admission Date: 03/01/18 Discharge Date: 03/06/18 Hospital Course Course Attending Physician: Naif Sahni MD [facility] 83 yo F with coronary artery disease, bioprosthetic aortic valve, hypertension, interstitial lung disease, hyperlipidemia, COPD, diabetes, dementia, lacunar infarct, diverticulitis, presented to the emergency department after a mechanical fall and sustaining a left femur comminuted intertrochanteric fracture. In the CAT scan room, she had an episode of unresponsiveness, with ?seizure-like activity, with a GCS of 3, absent gag reflex, responsive, and was intubated for airway protection, and subsequently got extubated on 03/04/18. Beta tonya was held due to bradycardia to 50s. Cardiology consulted who agreedw ith holding the betablocker. Bioprosthetic aortic valve function was grossly normal by echocardiogram. She can likely resume her ARB per the flavor room worker. Her heart rate has been 60-70 bmp mostly postoperatively. Patient was initially started with IV Keppra, and after neurology consultation and EEG not showing any seizure-like activity, is now being tapered. Aggrenox was switched to Aspirin initially as the patient was on OG tube initially, and is being discharged with Aggrenox again. Diabetes taken care with carbohydrate diet after the surgery and insulin sliding scale coverage all the while she was here. No changes in her other home medications otherwise. Patient underwent open reduction and internal fixation of left femur fracture on 03/03/2018, and has been followed by orthopedic surgery team as well. The patient needs daily dry dressing changes, the patient has activity recommendations has toe-touch weightbearing on left lower extremity, full weightbearing on right lower extremity to pivot. She has to be on Loveox for anticoagulation for six weeks starting from the day of surgery. She did not initially have it as she was ahving acute blood loss anemia, but this has stabilized since. Patient did receive two units of blood transfusion after surgery for acute surgical blood loss anemia. Please note that the patient holds a full code status. Complications: Postoperative anemia due to blood loss Allergies: Coded Allergies: NO KNOWN ALLERGIES (04/30/16) Significant Procedures: CAT scan of the abdomen and pelvis done on 03/01/2018: IMPRESSION: 1. No CT evidence of acute traumatic injury in the chest, abdomen, or pelvis on this noncontrast study. 2. Comminuted and angulated intertrochanteric fracture of the femur. Pertinent Lab Results: Laboratory Tests 03/06/18 0341: Anion Gap 8, Estimated GFR 29 L, Glucose 123 H, Calcium 8.1 L, Phosphorus 4.3 , Magnesium 1.8, Total Bilirubin 0.6, AST 22, ALT 20, Albumin 2.3 L, CBC w Diff NO MAN DIFF REQ, RBC 3.12 L, MCV 90.9, MCH 30.2, MCHC 33.2, RDW 15.5 H, MPV 8.3, Gran % 80.3 H, Lymphocytes % 7.5 L, Monocytes % 8.3, Eosinophils % 3.2, Basophils % 0.7, Absolute Granulocytes 11.2 H, Absolute Lymphocytes 1.0 L, Absolute Monocytes 1.2 H, Absolute Eosinophils 0.5, Absolute Basophils 0.1 Disposition Summary Disposition Principal Diagnosis: Left femur fracture after a mechanical fall, status post open reduction and internal fixation on 03/03/2018 Additional Diagnosis: Coronary artery disease, bioprosthetic aortic valve, hypertension, interstitial lung disease, hyperlipidemia, COPD, diabetes, dementia, lacunar infarct Discharge Disposition: SNF Discharge Instructions General Discharge Information Code Status: Full Code Patient's Diet: Chopped solid, regular thins (liquid) consistency DIABETIC DIET Patient's Activity: toe-touch weightbearing on left lower extremity, full weightbearing on right lower extremity to pivot. Follow-Up Instructions/Appts: Daily dry dressing change. Out of bed; Toe touch weight bearing on left lower extremity Please follow up with Orthopedic surgeon within 1-2 weeks after discharge. Please follow up with flavor room worker with your BP and heart rate/pulse rate recordings as well within one- two weeks time. Please follow up with her primary care physician, neurologist within 1-2 weeks of discharge. Medications at Discharge Discharge Medications: Stop taking the following medications: Metoprolol Succ XL (Toprol XL) 25 MG TAB ORAL DAILY Doxycycline Hyclate (Doxycycline Hyclate) 50 MG CAPSULE ORAL DAILY Qty = 30 Insulin Aspart (Novolog) 100 UNIT/ML VIAL Inject into fatty tissue Every Morning Insulin Aspart (Novolog) 100 UNIT/ML VIAL Inject into fatty tissue DAILY Insulin Detemir (Levemir) 100 UNIT/ML VIAL Inject into fatty tissue Every Morning Insulin Detemir (Levemir) 100 UNIT/ML VIAL Inject into fatty tissue Every night Continue taking these medications: Cyanocobalamin (Vitamin B-12) 1,000 MCG TABLET 1 Tablet ORAL DAILY Comments: Last Taken: NOT GIVEN IN HOSPITAL Time: Donepezil HCl (Aricept) 10 MG TABLET 1 Tablet ORAL Every night Comments: Last Taken: NOT GIVEN IN HOSPITAL Time: Escitalopram Oxalate (Lexapro) 10 MG TABLET 1 Tablet ORAL DAILY Comments: Last Taken: 03/06/18 Time: 1000AM Ferrous Sulfate (Ferrous Sulfate) 325 MG (65 MG IRON) TABLET 1 Tablet ORAL DAILY Comments: Last Taken: 03/06/18 Time: 1000AM Losartan Potassium (Losartan Potassium) 50 MG TABLET 1 Tablet ORAL DAILY Qty = 72 Comments: Last Taken: NOT GIVEN IN HOSPITAL Time: Meloxicam (Meloxicam) 7.5 MG TABLET 1 Tablet ORAL DAILY Qty = 30 Comments: Last Taken: NOT GIVEN IN HOSPITAL Time: Rosuvastatin Calcium (Crestor) 20 MG TABLET 1 Tablet ORAL DAILY Qty = 30 Comments: Last Taken: NOT GIVEN IN HOSPITAL; Time: LIPITOR GIVEN IN LIEUE OF 03/06/18 1600 Dipyridamole W/ Aspirin (Aggrenox 25 MG-200 MG Capsule) 25 MG-200 MG CPMP.12HR 1 Capsule ORAL TWICE DAILY Qty = 60 Comments: Last Taken: NOT GIVEN IN HOSPITAL; ASPIRIN GIVNE INSTEAD Time: Docusate Sodium (Colace) 100 MG CAPSULE 1 Capsule ORAL DAILY Comments: Last Taken: 03/06/18 Time: 1000AM Cholecalciferol (Vitamin D3) (Vitamin D) 5,000 UNIT TABLET 1 Tablet ORAL DAILY Comments: Last Taken: NOT GIVEN IN HOSPITAL Time: Start taking the following new medications: Levetiracetam (Keppra) 500 MG TABLET 1 Tablet ORAL TWICE DAILY Qty = 60 No Refills Insulin Aspart (Novolog) 100 UNIT/ML VIAL 0 Units Inject into fatty tissue 3 TIMES DAILY BEFORE MEALS Qty = 1 No Refills Instructions: BLOOD SUGAR < 80 - take juice, notify MD 80 to 150 - 0 units 150 to 200 - 1 unit 201 to 250 - 2 units 251 to 300 - 3 units 301 to 350 - 4 units 351 to 400 - 6 units > 400 - 8 units, call Enoxaparin Sodium (Lovenox) 30 MG/0.3 ML SYRINGE 30 Milligram Inject into fatty tissue DAILY Qty = 42 No Refills Copies To: Terry SU,Bal Powell; Seth SU,Paulie Norton; Tyshawn SU,Mamadou Attending MD Review Statement Documenting Attending: Naif Sahni MD Other Findings: The patient was seen by me on the day of discharge alone. OK to discharge to [facility] on Lovenox with plan to switch to oral anti-coagulant if H/H remains stable. Apixaban was mentioned, however has renal dysfunction and may be more prudent to use Coumadin. Will be decided by primary MD at [facility]. Has bed at [facility] today. Will continue Keppra on at least temporary basis. Will need neuro follow- up as OP.
[2018-03-06] MEDS ORDERED: NOVOLOG100 UNIT/2 SC (12:20)
[2018-03-06] MEDS ORDERED: KEPPRA500 M1 PO (12:20)
[2018-03-06] MEDS ORDERED: LOVENOX30 MG/0.1 SC (12:29)
--- NOTE | 2018-03-06 12:36 | Patient Discharge Instructions ---
Discharge Instructions General Discharge Information You were seen/treated for: Left Hip Fracture Confusion You had these procedures: Left Hip surgery Special Instructions: 1. Please follow-up with your PCP within one week of discharge 2. Please follow-up with the orthopedic surgeon, Dr. Stewart in 1-2 weeks 3. Please follow-up with your neurologist in regards to this seizure medications. Please continue taking Keppra 500 mg twice a day until then. 4. Please note that your long acting insulin has been stopped as you did not require it in the hospital. 5. Please continue taking Lovenox injections daily to prevent blood clots. Diet Continue normal diet: No Recommended Diet: Diabetic Activity Full Activity/No Limits: No Activity Self Limited: No Additional ACTIVITY Info: Toe touch weight bearing on the left Assist of 2 Acute Coronary Syndrome Inclusion Criteria At DC or during hospital stay patient has or had the following: ACS DIAGNOSIS No Discharge Core Measures Meds if any: Prescribed or Continued at Discharge Meds if any: NOT Prescribed or Continued at Discharge Congestive Heart Failure Inclusion Criteria At DC or during hospital stay patient has or had the following: CHF DIAGNOSIS No Discharge Core Measures Meds if any: Prescribed or Continued at Discharge Meds if any: NOT Prescribed or Continued at Discharge Cerebrovascular accident Inclusion Criteria At DC or during hospital stay patient has or had the following: CVA/TIA Diagnosis No Discharge Core Measures Meds if any: Prescribed or Continued at Discharge Meds if any: NOT Prescribed or Continued at Discharge Venous thromboembolism Inclusion Criteria VTE Diagnosis No VTE Type NONE VTE Confirmed by (Test) NONE Discharge Core Measures - Per Current guidelines, there needs to be overlap - treatment for the first 5 days of Warfarin therapy. - If discharged on Warfarin prior to 5 days of - overlap therapy, the patient will need to be - assessed for post discharge needs including - *Post discharge parental anticoagulation - *Warfarin and/or parental anticoagulation education - *Follow up date to check INR post discharge At least 5 days overlap therapy as Inpatient No Meds if any: Prescribed or Continued at Discharge Note: Overlap Therapy is Warfarin and Anticoagulant Meds if any: NOT Prescribed or Continued at Discharge
[2018-03-06 14:31] VITALS: BP 154/70
== END 2018-03-06 17:50 | DRG 480 ==
LOC: ERH 18:52 → ERHI 22:06 → CRI 22:06 → ENRESERV 22:39 → CRI 23:56
PROVIDERS: Physician Assistant Medical; Student in an Organized Health Care Education/Training Program
PROC: 0BH17EZ Insertion of Endotracheal Airway into Trachea, Via Natural or Artificial Opening (ICD-10-PCS; principal; 2018-03-01)
PROC: 5A1945Z Respiratory Ventilation, 24-96 Consecutive Hours (ICD-10-PCS; 2018-03-01)
PROC: 0QS704Z Reposition Left Upper Femur with Internal Fixation Device, Open Approach (ICD-10-PCS; 2018-03-01)
PROC: 30233N1 Transfusion of Nonautologous Red Blood Cells into Peripheral Vein, Percutaneous Approach (ICD-10-PCS; 2018-03-04)
DX: S72.142A Displaced intertrochanteric fracture of left femur, initial encounter for closed fracture (principal); G93.40 Encephalopathy, unspecified; J84.9 Interstitial pulmonary disease, unspecified; R56.9 Unspecified convulsions; N17.9 Acute kidney failure, unspecified; G45.9 Transient cerebral ischemic attack, unspecified; E87.1 Hypo-osmolality and hyponatremia; D62 Acute posthemorrhagic anemia; E11.22 Type 2 diabetes mellitus with diabetic chronic kidney disease; N18.3 Chronic kidney disease, stage 3 (moderate); F03.90 Unspecified dementia, unspecified severity, without behavioral disturbance, psychotic disturbance, mood disturbance, and anxiety; R41.82 Altered mental status, unspecified; Z79.4 Long term (current) use of insulin; R00.1 Bradycardia, unspecified; I12.9 Hypertensive chronic kidney disease with stage 1 through stage 4 chronic kidney disease, or unspecified chronic kidney disease; I25.10 Atherosclerotic heart disease of native coronary artery without angina pectoris; Z79.82 Long term (current) use of aspirin; W18.30XA Fall on same level, unspecified, initial encounter; Z91.81 History of falling; Z96.653 Presence of artificial knee joint, bilateral; Z95.3 Presence of xenogenic heart valve; D72.829 Elevated white blood cell count, unspecified; D50.9 Iron deficiency anemia, unspecified; I44.0 Atrioventricular block, first degree
CPT/HCPCS: CCU; ERO; 36415; 71045; 73502-LT; 74176; 74230; 81001; 82436; 86920; 87086; 93005; 93010; 93306; 94799; 95816; 96374; 96375; 97110-GO; 97161-GP; 97530-GO; 99291; J0131; J0690; J1644; J1650; J1815; J1953; J2310; J3010; J3490; J7040; J7042; P9016

== ENCOUNTER 2018-07-11 16:08 | Emergency (ER) | payer OTHER, MEDICARE ==
[~2018-07-11 16:08] MED LIST changes: +CRESTOR10 M1 PO; +DOXYCYCLINE HYC50 M1 PO; +KEPPRA500 M1 PO; +LEVEMIR100 UNIT/1 SC; +LOSARTAN POTASS50 M1 PO; +LOVENOX30 MG/0.1 SC; +NOVOLOG100 UNIT/2 SC; +VITAMIN D5000 UNIT PO
[2018-07-11] MEDS ORDERED: LEVEMIR100 UNIT/1 SQ (16:23)
--- NOTE | 2018-07-11 16:36 | ED PSYCHIATRIC COMPLAINT ---
History of Present Illness General Chief Complaint: Psychiatric Related Complaint Stated Complaint: BIBA SUICIDAL STATEMENTS Source: patient, family, old records, EMS Exam Limitations: no limitations Allergies Coded Allergies: NO KNOWN ALLERGIES (04/30/16) Reconcile Medications Cholecalciferol (Vitamin D3) (Vitamin D) 5,000 UNIT TABLET 1 TAB PO DAILY SUPPLEMENT (Reported) Cyanocobalamin (Vitamin B-12) 1,000 MCG TABLET 1 TAB PO DAILY SUPPLEMENT ( Reported) Dipyridamole W/ Aspirin (Aggrenox 25 MG-200 MG Capsule) 25 MG-200 MG CPMP.12HR 1 CAP PO BID BLOOD THINNER (Reported) Docusate Sodium (Colace) 100 MG CAPSULE 1 CAP PO DAILY STOOL SOFTENER ( Reported) Donepezil HCl (Aricept) 10 MG TABLET 2 TAB PO QPM DEMENTIA (Reported) Escitalopram Oxalate (Lexapro) 10 MG TABLET 1 TAB PO DAILY ANXIETY (Reported) Ferrous Sulfate 325 MG (65 MG IRON) TABLET 1 TAB PO DAILY SUPPLEMENT ( Reported) Insulin Aspart (Novolog) 100 UNIT/ML VIAL 0 UNITS SC TIDAC DIABETES BLOOD SUGAR < 80 - take juice, notify MD 80 to 150 - 0 units 150 to 200 - 1 unit 201 to 250 - 2 units 251 to 300 - 3 units 301 to 350 - 4 units 351 to 400 - 6 units > 400 - 8 units, call Insulin Detemir (Levemir) 100 UNIT/ML VIAL 6 U SQ DAILY DIABETES (Reported) Levetiracetam (Keppra) 500 MG TABLET 1 TAB PO BID SEIZURE PROPHYLAXIS Losartan Potassium 50 MG TABLET 1 TAB PO DAILY BP (Reported) Meloxicam 7.5 MG TABLET 1 TAB PO DAILY PAIN/INFLAMMATION (Reported) Rosuvastatin Calcium (Crestor) 10 MG TABLET 1 TAB PO DAILY HIGH CHOLESTROL ( Reported) Triage Note: PT BIBA FROM HOME ON PEER AFTER A DISAGREEMENT WITH HER SON. EMS AND POLICE REPORT THAT PT'S WAS UPSET WITH HER SON ABOUT STARTING TO HAVE A NEW AIDE TO ASSIST HER DUE TO INCREASE IN DEMENTIA SX. PT REPORTEDLY TOLD SON THAT IF SHE HAS TO HAVE AN AIDE, SHE WILL TAKE ALL OF HER PILLS AND KILL HERSELF. POLICE CALLED BY SON. PT HAS SINCE SAID THAT SHE WAS "JUST KIDDING". ON ARRIVAL, PT IS CALM AND COOPERATIVE, STATES SHE FEELS "ANGST" OVER WHAT IS GOING ON. Triage Nurses Notes Reviewed? yes HPI: Patient got into an argument with her son and stated that she was going to take all of her pills to kill herself. Patient states that she was just angry at her son and she did not really mean it. Her son has concerns for her safety and states that her dementia is getting much worse and he cannot handle her at home anymore. He states that she is having aggressive behaviors and she is unsafe at home. (Mohsen SU,Jose Prieto) Vital Signs & Intake/Output Vital Signs & Intake/Output Vital Signs Date Time Temp Pulse Resp B/P B/P Pulse O2 O2 Flow FiO2 Mean Ox Delivery Rate 07/12 0554 98.4 78 18 164/84 98 Room Air 07/12 0320 98.8 84 18 148/70 96 Room Air 07/11 2203 97.8 81 18 164/76 97 Room Air 07/11 1922 98.0 82 17 162/72 97 Room Air 07/11 1647 98.2 91 16 174/79 96 Room Air 07/11 1641 Room Air ED Intake and Output 07/12 0000 07/11 1200 Intake Total 240 Output Total Balance 240 Intake, Oral 240 (Nabil Trevizo DO) Past History Medical History Any Pertinent Medical History? 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 No (Mohsen SU,Jose Prieto) Review of Systems Review of Systems Constitutional: Reports: no symptoms. EENTM: Reports: no symptoms. Respiratory: Reports: no symptoms. Cardiovascular: Reports: no symptoms. GI: Reports: no symptoms. Genitourinary: Reports: no symptoms. Musculoskeletal: Reports: no symptoms. Skin: Reports: no symptoms. Neurological/Psychological: Reports: no symptoms. Hematologic/Endocrine: Reports: no symptoms. Immunologic/Allergic: Reports: no symptoms. All Other Systems: Reviewed and Negative (Mohsen SU,Jsoe Prieto) Physical Exam Physical Exam General Appearance: well developed/nourished, mild distress Head: atraumatic Eyes: Bilateral: PERRL, EOMI. Ears, Nose, Throat: normal pharynx, normal ENT inspection, hearing grossly normal Neck: normal inspection, supple Respiratory: normal breath sounds Cardiovascular: regular rate/rhythm Gastrointestinal: soft, non-tender Extremities: normal range of motion Neurological/Psychiatric: no motor/sensory deficits, awake, agitated, alert, oriented x 3 Appearance/Memory/Insight: denies illness Behavoir/Eye Contact/Speech: cooperative, normal speech, good eye contact Thoughts/Hallucinations: normal thought pattern, no apparent hallucination Skin: intact, normal color, warm/dry SAD PERSONS Done? CRISIS CONSULT OBTAIND (Mohsen SU,Jose Prieto) Progress Differential Diagnosis: drug intoxication, drug overdose, drug withdrawal, electrolyte abnormality Hand-Off Endorsed To: Nabil Trevizo DO Endorsed Time: 1899 Pending: consult Comments: Patient has been seen and evaluated by sand wheeler. Patient is stable for discharge. Her son agrees with the plan. They have a home health aide. (Mohsen SU,Jose Prieto) Plan of Care: Orders Procedure Date/time Status Regular Diet 07/12 B Active Continuous Observation Monitor 07/11 161 Active URINE DRUG SCREEN FOR ER ONLY 07/11 161 Complete URINALYSIS 07/11 161 Complete ETHANOL 07/11 161 Complete COMPREHENSIVE METABOLIC PANEL 07/11 161 Complete CBC WITHOUT DIFFERENTIAL 07/11 161 Complete ED CRISIS PSYCH CONSULT 07/11 161 Active Current Medications Sig/Faraz Start time Last Medication Dose Stop Time Status Admin Atorvastatin Calcium 40 MG 1700 07/12 1700 UNVr (Lipitor) Escitalopram Oxalate 10 MG DAILY 07/12 900 UNVr (Lexapro) Insulin Detemir 6 UNITS DAILY 07/12 900 UNVr (Levemir) Losartan Potassium 50 MG DAILY 07/12 900 UNVr (Cozaar) Dipyridamole/Aspirin 1 CAP BID 07/11 2100 UNVr 07/11 (Aggrenox) 2105 Donepezil HCl 20 MG QPM 07/11 2100 UNVr 07/11 (Aricept) 2105 Levetiracetam 500 MG BID 07/11 2100 UNVr 07/11 (Keppra) 2105 Laboratory Tests 07/11/18 1645: Urine Opiates Screen < 100, Methadone Screen 48, Barbiturate Screen < 60, Ur Phencyclidine Scrn < 6.00, Amphetamines Screen 205, U Benzodiazepines Scrn < 85, Urine Cocaine Screen < 50, Urine Cannabis Screen < 5.00, Urine Color YEL, Urine Clarity CLEAR, Urine pH 6.0, Ur Specific [place] 1.020, Urine Protein 100 H, Urine Ketones NEG, Urine Nitrite NEG, Urine Bilirubin NEG, Urine Urobilinogen 0.2, Ur Leukocyte Esterase NEG, Ur Microscopic SEDIMENT EXAMINED, Urine RBC RARE , Urine WBC RARE, Ur Epithelial Cells RARE, Urine Hemoglobin NEG, Urine Glucose NEG 07/11/18 1630: Anion Gap 7, Estimated GFR 39 L, BUN/Creatinine Ratio 20.0, Glucose 113 H, Calcium 8.5, Total Bilirubin 0.2, AST 20, ALT 25, Alkaline Phosphatase 82, Total Protein 6.4, Albumin 3.4 L, Globulin 3.0, Albumin/Globulin Ratio 1.1, CBC w Diff NO MAN DIFF REQ, RBC 3.14 L, MCV 93.2, MCH 30.9, MCHC 33.2, RDW 14.7 H, MPV 7.9, Gran % 66.6, Lymphocytes % 17.5 L, Monocytes % 10.7 H, Eosinophils % 4.4, Basophils % 0.8, Absolute Granulocytes 6.5, Absolute Lymphocytes 1.7, Absolute Monocytes 1.0 H, Absolute Eosinophils 0.4, Absolute Basophils 0.1, Serum Alcohol < 10.0 (Nabil Trevizo DO) Departure Departure Disposition: HOME OR SELF CARE Condition: Stable Clinical Impression Primary Impression: Depressed Secondary Impressions: Dementia Referrals: Mamadou Villagran MD (PCP/Family) Additional Instructions: Follow-up as per recommendations of crisis clinic. Return if symptoms worsen or for any concerns. Departure Forms: Customer Survey General Discharge Information (Mohsen SU,Jose Prieto) Departure Comments 07/12/18 The signed out to me by Dr. Connolly. She is currently comfortable in the ED at 4:30 AM. She is sleeping. She will be signed out to Dr. Connolly at 7 AM. She is pending disposition by crisis. (Nabil Trevizo DO)
[2018-07-11 16:37] LABS: ABSOLUTE BASOPHIL COUNT 0.1 /CUMM (0.0-0.2); ABSOLUTE EOSINOPHIL COUNT 0.4 /CUMM (0.0-0.7); ABSOLUTE GRANULOCYTE CT 6.5 /CUMM (1.4-6.5); ABSOLUTE LYMPH COUNT 1.7 /CUMM (1.2-3.4); BASOPHIL % 0.8 % (0.0-2.0); EOSINOPHIL % 4.4 % (0-5); GRANULOCYTE % 66.6 % (42.2-75.2); HEMATOCRIT 29.3 % (37-47); MEAN CORPUSCULAR HGB 30.9 PG (27.0-31.0); MEAN CORPUSCULAR HGB CONC 33.2 G/DL (33.0-37.0); MEAN CORPUSCULAR VOLUME 93.2 FL (81.0-99.0); MEAN PLATELET VOLUME 7.9 FL (7.4-10.4); PLATELET COUNT 314 /CUMM (130-400); RBC DISTRIBUTION WIDTH 14.7 % (11.5-14.5); RED BLOOD CELL CT 3.14 /CUMM (4.20-5.40); WHITE BLOOD CELL COUNT 9.8 /CUMM (4.8-10.8)
--- NOTE | 2018-07-11 20:49 | ED PSYCH CRISIS CONSULTATION ---
Crisis Consult Basic Assessment Date of Consult: 07/11/18 Responsible Person/Accompanied By: Self Insurance Authorization: Insurance #1: Insurance name: MEDICARE A Phone number: Policy number: [id number] Group number: Authorization number: ED Provider: Patient's ED Provider: Mohsen SU,Jose Prieto Primary Care Physician: Patient's PCP: Mamadou Villagran MD PCP's Current Psychiatrist: None Chief Complaint: Psychiatric Related Complaint Patient's Quote: "I know, I should not have said what Idid." Present Illness: The patient is a 83 year old female BIBA to the ED on a PEER with a complaint of SI stating she would take all her pills to kill herself. The patient presented as alert, calm, cooperative and orientated x3 with congruent mood and affect. The patient per self-report and son's report has dementia. Patient was able to state her name address, the year and who the president is. Patient denies current SI/HI/AH/VH. Patient got into an argument with her son and stated that she was going to take all of her pills to kill herself. Patient states "I know, I should not have said what I did. I was just angry and did not mean it." The patient states her son has power of claims attorney and wants to increase the number of hours an aid is with her, which she believes is not necessary. She states she broke her hip when she fell four months ago and that is why she has an aid. She states she can make her own sandwiches, use the microwave and toaster oven. Patient has no history of treatment for depression and no prior suicide attempts. Patient reports normal sleep, appetite, motivation and energy. Administered C-SSRS: Risk factors: Perceived burden on family or others; Protective factors: identifies reasons for living Spoke to patient's son, Britton Knox, , who state he son has concerns for her safety. He states that her dementia is getting much worse and he cannot handle her at home anymore. He states that she is having aggressive behaviors (lashing out at the aid today) and she is unsafe at home alone. He states that he is disabled as well living in his own one room apartment. He stated that he was able to increase the in home care available to her through a spend down, but she is resistant to having an aid there with her all the time. He states she fell and broke her hip and is concerned that she will fall again. He is also concerned that she takes her medication properly. Britton requested that his mother be permitted to stay at the ED overnight as it is unsafe to return home this evening. Britton states he will arrange for an aid to be with her tomorrow when she is discharged in the morning. Dr. Skinner agrees with this plan. Patient's Address: [address] [place] [address] Other Who Do You Live With? Patient/Self Family/Informants Interviewed: Son, Britton Knox Allergies - Coded Allergies: NO KNOWN ALLERGIES (04/30/16) Current Medications - Scheduled Medications Cholecalciferol (Vitamin D3) (Vitamin D) 5,000 UNIT TABLET 1 TAB PO DAILY SUPPLEMENT (Reported) Entered as Reported by [place] Ac on 03/01/181911 Last Taken: 07/11/18 Cyanocobalamin (Vitamin B-12) 1,000 MCG TABLET 1 TAB PO DAILY SUPPLEMENT ( Reported) Entered as Reported by Elisabeth Dumont on 08/29/171505 Last Taken: 07/11/18 Dipyridamole W/ Aspirin (Aggrenox 25 MG-200 MG Capsule) 25 MG-200 MG CPMP.12HR 1 CAP PO BID BLOOD THINNER #60 (Reported) Entered as Reported by [place] Ac on 03/01/181910 Last Taken: 07/11/18 Docusate Sodium (Colace) 100 MG CAPSULE 1 CAP PO DAILY STOOL SOFTENER ( Reported) Entered as Reported by [place] Ac on 03/01/181910 Last Taken: 07/11/18 Donepezil HCl (Aricept) 10 MG TABLET 2 TAB PO QPM DEMENTIA (Reported) Entered as Reported by Elisabeth Dumont on 08/29/17 150 Last Taken: 07/11/18 Escitalopram Oxalate (Lexapro) 10 MG TABLET 1 TAB PO DAILY ANXIETY (Reported) Entered as Reported by Elisabeth Dumont on 08/29/17 1506 Last Taken: 07/11/18 Ferrous Sulfate 325 MG (65 MG IRON) TABLET 1 TAB PO DAILY SUPPLEMENT ( Reported) Entered as Reported by Elisabeth Dumont on 08/29/17 1507 Last Taken: 07/11/18 Insulin Aspart (Novolog) 100 UNIT/ML VIAL 0 UNITS SC TIDAC DIABETES #1 VIAL Prescribed by Alma Santamaria MD on 03/06/18 Last Taken: 07/11/18 Insulin Detemir (Levemir) 100 UNIT/ML VIAL 6 U SQ DAILY DIABETES (Reported) Entered as Reported by Izzy Aj on 07/11/18 1623 Levetiracetam (Keppra) 500 MG TABLET 1 TAB PO BID SEIZURE PROPHYLAXIS #60 TAB Prescribed by Alma Santamaria MD on 03/06/18 Last Taken: 07/11/18 Losartan Potassium 50 MG TABLET 1 TAB PO DAILY BP #72 (Reported) Entered as Reported by [place] Ac on 03/01/181909 Last Taken: 07/11/18 Meloxicam 7.5 MG TABLET 1 TAB PO DAILY PAIN/INFLAMMATION #30 (Reported) Entered as Reported by [place] Ac on 03/01/181909 Last Taken: 07/11/18 Rosuvastatin Calcium (Crestor) 10 MG TABLET 1 TAB PO DAILY HIGH CHOLESTROL ( Reported) Entered as Reported by [place] Ac on 03/01/181910 Laboratory Results: Laboratory Tests 07/11/18 1645: Urine Opiates Screen < 100, Methadone Screen 48, Barbiturate Screen < 60, Ur Phencyclidine Scrn < 6.00, Amphetamines Screen 205, U Benzodiazepines Scrn < 85, Urine Cocaine Screen < 50, Urine Cannabis Screen < 5.00, Urine Color YEL, Urine Clarity CLEAR, Urine pH 6.0, Ur Specific [place] 1.020, Urine Protein 100 H, Urine Ketones NEG, Urine Nitrite NEG, Urine Bilirubin NEG, Urine Urobilinogen 0.2, Ur Leukocyte Esterase NEG, Ur Microscopic SEDIMENT EXAMINED, Urine RBC RARE , Urine WBC RARE, Ur Epithelial Cells RARE, Urine Hemoglobin NEG, Urine Glucose NEG 07/11/18 1630: Anion Gap 7, Estimated GFR 39 L, BUN/Creatinine Ratio 20.0, Glucose 113 H, Calcium 8.5, Total Bilirubin 0.2, AST 20, ALT 25, Alkaline Phosphatase 82, Total Protein 6.4, Albumin 3.4 L, Globulin 3.0, Albumin/Globulin Ratio 1.1, CBC w Diff NO MAN DIFF REQ, RBC 3.14 L, MCV 93.2, MCH 30.9, MCHC 33.2, RDW 14.7 H, MPV 7.9, Gran % 66.6, Lymphocytes % 17.5 L, Monocytes % 10.7 H, Eosinophils % 4.4, Basophils % 0.8, Absolute Granulocytes 6.5, Absolute Lymphocytes 1.7, Absolute Monocytes 1.0 H, Absolute Eosinophils 0.4, Absolute Basophils 0.1, Serum Alcohol < 10.0 ([facility]) Addendum Addendum Patient was vseen for a reevaluation. Patient was smiling and pleasant, and joking a bit about being old. Patient understands that she "said something stupid", and is hoiping to be d/c, saying she has no such thoughts or intent. Review case with Dr Skinner who concurs with plan for d/c. 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 Physical Limitations (Interventions): Patient broke her hip four months ago and is a fall risk. Psychiatric Treatment History Psych Treatment Psychiatric Treatment No Diagnosis by History: Dementia Substance Use/Abuse History Drug Use/Abuse Substances Used/Abused No Substance Abuse Treatment Substance Abuse Treatment Past Substance Abuse [place] No Comments: None ([facility]) Current Mental Status Mental Status Orientation: Person, Place, Situation Affect: Appropriate, WNL Speech: WNL Neuro-vegetative: WNL Appearance Appearance- Dress/Hygiene: Patient was under the blankets on stretcher during interview. Patient was well- groomed and hygienic. Behaviors Thought Process: WNL Thought Content: WNL Memory: Impaired Insight: WNL SI/HI Risk Assessment Past Suicidal Ideation/Attempts No Current Suicidal Ideation/Att No Past Homicidal Ideation/Att: No Current Homicidal Ideation/Attempts No Degree of Intent: None Danger To: N/A Gravely Disabled: Inability Risk Factors: age (under 24/over 65), chronic/serious med cond., lives alone, limited support Lethality Ratin (mild) PTSD Checklist PTSD Done? patient declined ED Management Sitter: Yes Restraints: No [facility] DSM5/PS Stressors/Medical Prob Diagnosis' (DSM 5, Stressors, Medical): R41.9 Unspecified Neurocognitive Disorder Current GAF: 38 Comments: None ([facility]) Departure Disposition Psych Medical Clearance Date: 07/11/18 Medically Cleared at: 1616 Time Started: 1844 Time Ended: 1914 Psychiatrist Consulted: Zara Skinner MD Date Disposition Established: 07/11/18 Time Disposition Established: 1919 Plan for Disposition - Modality: Discharge in AM when safe to return home with aid Rationale for Disposition: Patient denies SI and has no mood disturbance. Patient has dementia, is fall risk and needs aid to support her at home. Patient's son to arrange aid to be with patient in the morning when she can be discharged and safe to return home. Dr. Skinner is agreeable with this plan. Additional Instructions: Call sonBritton to brick picker patient upon discharge in the morning. Referrals Mamadou Villagran MD (PCP/Family) ([facility])
[2018-07-12 10:10] VITALS: BP 152/68
== END 2018-07-12 10:11 ==
LOC: ERH 16:08
PROVIDERS: Physician Assistant Medical
DX: F03.90 Unspecified dementia, unspecified severity, without behavioral disturbance, psychotic disturbance, mood disturbance, and anxiety (principal); F32.9 Major depressive disorder, single episode, unspecified
CPT/HCPCS: 80307; 81001; G0463; G0480